=== PATIENT | female | born 1985 | race Caucasian/White ===

== ENCOUNTER 2019-04-03 14:19 | Emergency (ER) | payer SELFPAY ==
[~2019-04-03] VITALS: Ht 157.5 cm; Wt 59.1 kg
[~2019-04-03 14:19] MED LIST: AC500T; CALC-656; LEVO250T7; METR500T PO; NITR100C3; NITR100C3 PO; OXYC-12 BC; PREN1TAB39 PO
[2019-04-03 15:16] LABS: WHITE BLOOD COUNT 7.7 10^3/uL (4.3-11.0)
[2019-04-03 15:17] LABS: BASOPHILS % (AUTO) 1 % (0-10); EOSINOPHILS % (AUTO) 1 % (0-10); HEMATOCRIT 44 % (35-52); HEMOGLOBIN 14.8 G/DL (11.5-16.0); LYMPHOCYTES # (AUTO) 1.9 X 10^3 (1.0-4.0); LYMPHOCYTES % (AUTO) 24 % (12-44); MEAN CORPUSCULAR HEMOGLOBIN 31 PG (25-34); MEAN CORPUSCULAR HGB CONC 34 G/DL (32-36); MEAN CORPUSCULAR VOLUME 94 FL (80-99); MEAN PLATELET VOLUME 10.9 FL (7.4-10.4); MONOCYTES # (AUTO) 0.3 X 10^3 (0.0-1.0); MONOCYTES % (AUTO) 4 % (0-12); NEUTROPHILS # (AUTO) 5.4 X 10^3 (1.8-7.8); NEUTROPHILS % (AUTO) 70 % (42-75); PLATELET COUNT 184 10^3/uL (130-400); RED CELL DISTRIBUTION WIDTH 12.1 % (10.0-14.5)
[2019-04-03 15:40] LABS: BUN/CREATININE RATIO 7; CALCIUM 8.9 MG/DL (8.5-10.1); CARBON DIOXIDE 23 MMOL/L (21-32); CHLORIDE 107 MMOL/L (98-107); CREATININE SERUM 0.88 MG/DL (0.60-1.30); GFR ESTIMATED > 60; GLUCOSE 98 MG/DL (70-105); POTASSIUM 3.9 MMOL/L (3.6-5.0); SODIUM 139 MMOL/L (135-145)
--- NOTE | 2019-04-03 15:54 | ED Abdominal Pain ---
General Chief Complaint: Rect Problems Stated Complaint: BLACK STOOL; ABD PAIN Nursing Triage Note: Patient reports bright red blood per rectum for 1 week, states today her stool became dark and black in color. She reports 2-3 dark loose stools today. She also reports generalized abdominal pain. Sepsis Screen: No Definite Risk Source of Information: Patient History of Present Illness Date Seen by Provider: Apr 03, 2019 Time Seen by Provider: 15:00 Initial Comments Patient is a 33-year-old female with history of irritable bowel syndrome who presents with loose stools with intermittent bright red rectal bleeding and blood on stools the past week. Patient reports mild generalized migratory abdominal cramping described as dull and cramping. Denies rectal pain or constipation. No nausea vomiting, fevers chills, back pain or sweats. Patient states she had episode of dark green stool last evening which she collected. No other acute symptoms or complaints. No recent antibiotics. Patient has an IUD in place and has irregular menstrual periods. Timing/Duration: 1-3 Hours Severity/Quality: Mild Location: Generalized Abdomen Activities at Onset: None Allergies and Home Medications Allergies Coded Allergies: Aspirin (Unverified Allergy, Mild, 04/27/09) Cefaclor (Unverified Allergy, Mild, 04/27/09) Amoxicillin (Verified Allergy, Unknown, 10/30/09) Uncoded Allergies: [id number] (SULFA (SULFONAMIDE ANTIBIOTICS)) (Allergy, Mild, 06/16/09) Patient Home Medication List Home Medication List Reviewed: Yes Review of Systems Review of Systems Constitutional: dizziness EENTM: No Symptoms Reported Respiratory: No Symptoms Reported Cardiovascular: No Symptoms Reported Gastrointestinal: See HPI Musculoskeletal: no symptoms reported Past Ezezyip-Krixns-Jgzpwe Hx Past Med/Social Hx: Reviewed Nursing Past Med/Soc Hx Patient Social History Alcohol Use: Denies Use Recreational Drug Use: No Smoking Status: Current Everyday Smoker Type Used: Cigarettes 2nd Hand Smoke Exposure: No Recent Foreign Travel: No Contact w/Someone Who Travel: No Recent Infectious Disease Expo: No Recent Hopitalizations: No Physical Abuse: No Sexual Abuse: No Mistreated: No Fear: No Seasonal Allergies Seasonal Allergies: No Past Medical History Surgeries: Yes Gallbladder Respiratory: No Cardiac: No Neurological: Yes Reproductive Disorders: No Genitourinary: Yes Bladder Infection Gastrointestinal: Yes Irritable Bowel Musculoskeletal: No Endocrine: No HEENT: No Cancer: No Psychosocial: No Integumentary: No Blood Disorders: No Physical Exam Vital Signs Vital Signs - First Documented 04/03/19 14:49 Temp 37.3 Pulse 87 Resp 18 B/P (MAP) 123/74 (90) Pulse Ox 95 O2 Delivery Room Air Capillary Refill : Less Than 3 Seconds Height/Weight/BMI Height: 5'3.00" Weight: 162lbs. oz. 73.874900mb; 23.00 BMI Method:Stated General Appearance: WD/WN, no apparent distress HEENT: PERRL/EOMI, TMs normal Neck: non-tender, full range of motion, supple Respiratory: lungs clear Gastrointestinal: soft, other (no distention, normal bowel sounds, no tenderness.) Extremities: non-tender Focused Exam Sepsis Stage: Ruled Out Progress/Results/Core Measures Results/Orders Lab Results Laboratory Tests Test 04/03/19 15:00 Range/Units White Blood Count 7.7 4.3-11.0 10^3/uL Red Blood Count 4.71 4.35-5.85 10^6/uL Hemoglobin 14.8 11.5-16.0 G/DL Hematocrit 44 35-52 % Mean Corpuscular Volume 94 80-99 FL Mean Corpuscular Hemoglobin 31 25-34 PG Mean Corpuscular Hemoglobin Concent 34 32-36 G/DL Red Cell Distribution Width 12.1 10.0-14.5 % Platelet Count 184 130-400 10^3/uL Mean Platelet Volume 10.9 H 7.4-10.4 FL Neutrophils (%) (Auto) 70 42-75 % Lymphocytes (%) (Auto) 24 12-44 % Monocytes (%) (Auto) 4 0-12 % Eosinophils (%) (Auto) 1 0-10 % Basophils (%) (Auto) 1 0-10 % Neutrophils # (Auto) 5.4 1.8-7.8 X 10^3 Lymphocytes # (Auto) 1.9 1.0-4.0 X 10^3 Monocytes # (Auto) 0.3 0.0-1.0 X 10^3 Eosinophils # (Auto) 0.0 0.0-0.3 10^3/uL Basophils # (Auto) 0.0 0.0-0.1 10^3/uL Sodium Level 139 135-145 MMOL/L Potassium Level 3.9 3.6-5.0 MMOL/L Chloride Level 107 98-107 MMOL/L Carbon Dioxide Level 23 21-32 MMOL/L Anion Gap 9 5-14 MMOL/L Blood Urea Nitrogen 6 L 7-18 MG/DL Creatinine 0.88 0.60-1.30 MG/DL Estimat Glomerular Filtration Rate > 60 BUN/Creatinine Ratio 7 Glucose Level 98 70-105 MG/DL Calcium Level 8.9 8.5-10.1 MG/DL My Orders Orders - DANNIELLE CHICAS DO Cbc With Automated Diff (04/03/19 14:40) Basic Metabolic Panel (04/03/19 14:40) Occult Blood Stool (04/03/19 14:40) Vital Signs/I&O 04/03/19 14:49 Temp 37.3 Pulse 87 Resp 18 B/P (MAP) 123/74 (90) Pulse Ox 95 O2 Delivery Room Air Blood Pressure Mean: 90 Departure Communication (Admissions) Symptoms consistent with irritable bowel syndrome with probable hemorrhoidal bleeding. Heme-negative in the ED. Basic labs obtained. Recommend PCP follow-up for further evaluation Impression Primary Impression: Loose stools Additional Impressions: Abdominal cramping Rectal bleeding Disposition: HOME, SELF-CARE Condition: Stable Departure-Patient Inst. Referrals: ROVERTO GARCIA MD (PCP/Family) Primary Care Physician Patient Instructions: Bloody Stools, Adult (DC) Add. Discharge Instructions: Please take Metamucil daily and follow up with PCP for reevaluation. All discharge instructions reviewed with patient and/or family. Voiced understanding. DANNIELLE CHICAS DO Apr 03, 2019 15:54
[2019-04-03 16:08] VITALS: BP 118/67
== END 2019-04-03 16:10 | disposition home or self-care (01) ==
LOC: EDUNIT# 14:19 → ER FS 14:21
DX: R19.7 Diarrhea, unspecified (principal); K62.5 Hemorrhage of anus and rectum; K58.9 Irritable bowel syndrome, unspecified; F17.210 Nicotine dependence, cigarettes, uncomplicated; Z88.6 Allergy status to analgesic agent; Z88.1 Allergy status to other antibiotic agents; Z88.0 Allergy status to penicillin; Z88.2 Allergy status to sulfonamides
CPT/HCPCS: 80048

== ENCOUNTER → 2019-07-26 | Outpatient (CLI) | payer SELFPAY | LOC: LAB FS 14:25 | PROVIDERS: ATTEND Family Medicine | DX: N92.6 Irregular menstruation, unspecified (principal) | CPT/HCPCS: 36415; 84702 ==

== ENCOUNTER 2019-08-11 20:37 | Emergency (ER) | payer SELFPAY ==
[~2019-08-11] VITALS: Ht 162.5 cm; Wt 65.8 kg
[2019-08-11 21:08] LABS: BASOPHILS # (AUTO) 0.1 10^3/uL (0.0-0.1); BASOPHILS % (AUTO) 1 % (0-10); EOSINOPHILS # (AUTO) 0.1 10^3/uL (0.0-0.3); EOSINOPHILS % (AUTO) 1 % (0-10); HEMATOCRIT 44 % (35-52); HEMOGLOBIN 15.1 G/DL (11.5-16.0); LYMPHOCYTES # (AUTO) 2.8 X 10^3 (1.0-4.0); LYMPHOCYTES % (AUTO) 37 % (12-44); MEAN CORPUSCULAR HEMOGLOBIN 32 PG (25-34); MEAN CORPUSCULAR HGB CONC 34 G/DL (32-36); MEAN CORPUSCULAR VOLUME 93 FL (80-99); MEAN PLATELET VOLUME 10.2 FL (7.4-10.4); MONOCYTES # (AUTO) 0.4 X 10^3 (0.0-1.0); MONOCYTES % (AUTO) 5 % (0-12); NEUTROPHILS # (AUTO) 4.1 X 10^3 (1.8-7.8); NEUTROPHILS % (AUTO) 55 % (42-75); PLATELET COUNT 216 10^3/uL (130-400); RED CELL DISTRIBUTION WIDTH 12.2 % (10.0-14.5); WHITE BLOOD COUNT 7.4 10^3/uL (4.3-11.0)
--- NOTE | 2019-08-11 21:10 | ED General ---
General Chief Complaint: Chest Pain Stated Complaint: CHEST PAIN Source of Information: Patient History of Present Illness Date Seen by Provider: Aug 11, 2019 Time Seen by Provider: 20:40 Initial Comments 33 yo F presents to the ED with complaints of pain in chest that has been getting worse over the last week. She feels pain and popping in the middle of he r chest and it radiates to both side of her chest. She denies a cough. She feels the pain is worse at night when she tries to lay down. She had pain in her right arm doing into her chest last night. She is a smoker. She feels that she has sleep apnea and that she has her breathing and her heart stopping at night. She felt it was worsening so she came to the ED tonight. She does get light headed at times as well. She feels it is worse with taking deep breaths and with laying down. She has been having irregular bleeding with her Mirena as well. She has not been in to see the doctor recently because she states she does not have insurance. She does not take any medicine on a scheduled basis. Allergies and Home Medications Allergies Coded Allergies: Aspirin (Unverified Allergy, Mild, 04/27/09) Cefaclor (Unverified Allergy, Mild, 04/27/09) Amoxicillin (Verified Allergy, Unknown, 10/30/09) Uncoded Allergies: [id number] (SULFA (SULFONAMIDE ANTIBIOTICS)) (Allergy, Mild, 06/16/09) Patient Home Medication List Home Medication List Reviewed: Yes Review of Systems Review of Systems Constitutional: No chills; dizziness (and light headed at times); No fever EENTM: no symptoms reported Respiratory: No cough, No stridor, No wheezing Cardiovascular: chest pain (epigastric pains going into her chest) Gastrointestinal: abdominal pain (epigastric); No constipation, No diarrhea; nausea; No vomiting Genitourinary: No dysuria, No frequency; other (irregular vaginal bleeding) Musculoskeletal: no symptoms reported Skin: no symptoms reported Psychiatric/Neurological: No Symptoms Reported Hematologic/Lymphatic: No Symptoms Reported Past Enlrfla-Qccomw-Xrivmw Hx Past Med/Social Hx: Reviewed Nursing Past Med/Soc Hx Patient Social History Type Used: Cigarettes 2nd Hand Smoke Exposure: No Recent Foreign Travel: No Contact w/Someone Who Travel: No Recent Hopitalizations: No Physical Abuse: No (15yrs of age) Sexual Abuse: No (15yrs of age) Mistreated: No Fear: No Seasonal Allergies Seasonal Allergies: No Past Medical History Surgeries: Yes Gallbladder Respiratory: No Currently Using CPAP: No Currently Using BIPAP: No Cardiac: No Neurological: No Reproductive Disorders: No Genitourinary: Yes Bladder Infection Gastrointestinal: Yes Gall Bladder Disease, Irritable Bowel Musculoskeletal: No Endocrine: No HEENT: No Cancer: No Psychosocial: No Integumentary: No Blood Disorders: No Physical Exam Vital Signs Vital Signs - First Documented 08/11/19 20:40 Temp 36.9 Pulse 78 Resp 12 B/P (MAP) 126/78 (94) Pulse Ox 99 O2 Delivery Room Air Capillary Refill : Less Than 3 Seconds Height, Weight, BMI Height: 5'3.00" Weight: 162lbs. oz. 73.902147ov; 23.00 BMI Method:Stated General Appearance: No Apparent Distress, WD/WN HEENT: PERRL/EOMI, Pharynx Normal Neck: Full Range of Motion, Non Tender, Supple Respiratory: Chest Non Tender, Lungs Clear, Normal Breath Sounds, No Accessory Muscle Use, No Respiratory Distress Cardiovascular: Regular Rate, Rhythm, Normal Peripheral Pulses Gastrointestinal: Normal Bowel Sounds, No Organomegaly, No Pulsatile Mass, Soft, Tenderness (epigastric) Extremity: Normal Capillary Refill, Non Tender, No Pedal Edema Neurologic/Psychiatric: Alert, Oriented x3, head of store operations II-XII Norm as Tested Skin: Normal Color, Warm/Dry Progress/Results/Core Measures Suspected Sepsis SIRS Temperature: Pulse: Respiratory Rate: Laboratory Tests 08/11/19 21:00: White Blood Count 7.4 Blood Pressure / Mean: Laboratory Tests 08/11/19 21:00: Creatinine 0.95, INR Comment 0.9, Platelet Count 216, Total Bilirubin 0.2 Results/Orders Lab Results Laboratory Tests Test 08/11/19 21:00 Range/Units White Blood Count 7.4 4.3-11.0 10^3/uL Red Blood Count 4.76 4.35-5.85 10^6/uL Hemoglobin 15.1 11.5-16.0 G/DL Hematocrit 44 35-52 % Mean Corpuscular Volume 93 80-99 FL Mean Corpuscular Hemoglobin 32 25-34 PG Mean Corpuscular Hemoglobin Concent 34 32-36 G/DL Red Cell Distribution Width 12.2 10.0-14.5 % Platelet Count 216 130-400 10^3/uL Mean Platelet Volume 10.2 7.4-10.4 FL Neutrophils (%) (Auto) 55 42-75 % Lymphocytes (%) (Auto) 37 12-44 % Monocytes (%) (Auto) 5 0-12 % Eosinophils (%) (Auto) 1 0-10 % Basophils (%) (Auto) 1 0-10 % Neutrophils # (Auto) 4.1 1.8-7.8 X 10^3 Lymphocytes # (Auto) 2.8 1.0-4.0 X 10^3 Monocytes # (Auto) 0.4 0.0-1.0 X 10^3 Eosinophils # (Auto) 0.1 0.0-0.3 10^3/uL Basophils # (Auto) 0.1 0.0-0.1 10^3/uL Prothrombin Time 12.2 12.2-14.7 SEC INR Comment 0.9 0.8-1.4 Activated Partial Thromboplast Time 27 24-35 SEC Sodium Level 138 135-145 MMOL/L Potassium Level 3.9 3.6-5.0 MMOL/L Chloride Level 101 98-107 MMOL/L Carbon Dioxide Level 23 21-32 MMOL/L Anion Gap 14 5-14 MMOL/L Blood Urea Nitrogen 10 7-18 MG/DL Creatinine 0.95 0.60-1.30 MG/DL Estimat Glomerular Filtration Rate > 60 BUN/Creatinine Ratio 11 Glucose Level 96 70-105 MG/DL Calcium Level 9.0 8.5-10.1 MG/DL Corrected Calcium 8.7 8.5-10.1 MG/DL Magnesium Level 2.1 1.6-2.4 MG/DL Total Bilirubin 0.2 0.1-1.0 MG/DL Aspartate Amino Transf (AST/SGOT) 18 5-34 U/L Alanine Aminotransferase (ALT/SGPT) 21 0-55 U/L Alkaline Phosphatase 80 40-136 U/L Troponin I < 0.30 <0.30 NG/ML Pro-B-Type Natriuretic Peptide 46.7 <75.0 PG/ML Total Protein 6.8 6.4-8.2 GM/DL Albumin 4.4 3.2-4.5 GM/DL Lipase 25 8-78 U/L Serum Test, Qualitative NEGATIVE NEGATIVE My Orders Orders - BABS LINDO MD Cbc With Automated Diff (08/11/19 20:52) Magnesium (08/11/19 20:52) Ekg Tracing (08/11/19 20:52) Comprehensive Metabolic Panel (08/11/19 20:52) Protime With Inr (08/11/19 20:52) Partial Thromboplastin Time (08/11/19 20:52) Monitor-Rhythm Ecg Trace Only (08/11/19 20:52) Ed Iv/Invasive Line Start (08/11/19 20:52) Lipase (08/11/19 20:52) Troponin I Fs (08/11/19 20:52) Probnp Fs (08/11/19 20:52) Chest Pa/Lat (2 View) (08/11/19 20:52) Hcg,Qualitative Serum (08/11/19 20:52) Pantoprazole Injection (Protonix Injecti (08/11/19 21:15) Vital Signs/I&O 08/11/19 08/11/19 20:40 20:40 Temp 36.9 Pulse 78 Resp 12 B/P (MAP) 126/78 (94) Pulse Ox 99 O2 Delivery Room Air Room Air Capillary Refill : Less Than 3 Seconds Progress Note #1: Progress Note check basic labs and CXR with ECG. With her having some epigastric symptoms and nausea will try a dose of Protonix for possible gastritis and see what her LFTs and Lipase show. Since she is having irregular bleeding with her Mirena will also check a Qualitative HCG on serum. Progress Note #2: Time: 21:54 Progress Note Labs are all stable without acute significant abnormality. Negative cardiac labs and negative Lipase and LFTs. CXR does not show acute significant abnormality. ECG is normal without acute abnormality. Will review results with patient and see about trying treatment with medicine for GERD/gastritis and having her try to quit smoking. Check back with [facility] clinic for continued symptoms and note about missed work. Since her symptoms are worse when she lays down it certainly could be from reflux causing her symptoms. No acute abnormality showing on her tests here otherwise. She may need more advanced testing with clinic but no indication for admit or transfer to need testing in the hospital setting emergently. ECG Initial ECG Impression Date: Aug 11, 2019 Initial ECG Impression Time: 21:00 Initial ECG Rate: 76 Initial ECG Rhythm: Normal Sinus Initial ECG Comparisson: No Previous ECG Available Comment Normal sinus rhythm with a heart rate of 76 bpm. [place] interval 144 ms. There is no acute ST elevation. Her QT interval is 379 ms and a QTc interval 427 ms. There is no prior tracing available for comparison. Diagnostic Imaging Diagonstic Imaging: Xray Plain Films/CT/US/NM/MRI: chest Comments NAME: ANDREY SANZ [facility] REC#: [id number] PT STATUS: REG ER : 1985 PHYSICIAN: BABS LINDO MD ADMIT DATE: 08/11/19/ER FS Signed Date of Exam:08/11/19 CHEST PA/LAT (2 VIEW) INDICATION: Chest tightness with pain and cough PA and lateral views of the chest are obtained. COMPARISON: No previous study is available for comparison at this time. FINDINGS: Heart size and pulmonary vasculature are within normal limits, and the lungs are clear, bilaterally. IMPRESSION: Unremarkable chest. Dictated by: Dictated on workstation # [id number] Dict: 08/11/192130 Trans: 08/11/192132 [facility] [id number] Interpreted by: YVON SMITH MD Electronically signed by: YVON SMITH MD 08/11/192132 Reviewed: Reviewed by Me Departure Impression Primary Impression: Non-cardiac chest pain Additional Impression: Gastroesophageal reflux disease Qualified Codes: K21.0 - Gastro-esophageal reflux disease with esophagitis Disposition: HOME, SELF-CARE Condition: Stable Departure-Patient Inst. Decision time for Depature: 22:00 Referrals: ROVERTO GARCIA MD (PCP/Family) Primary Care Physician MALA CHAMORRO MD Patient Instructions: Chest Pain That Is Not Caused by the Heart (DC), Acid Reflux (Gastroesophageal Reflux Disease), Adult (DC) Add. Discharge Instructions: Try to quit smoking and follow a low fat diet Take the medicine for acid reflux and see if that helps your symptoms as well. Follow up with clinic for continued symptoms and they may have you do other testing but your tests tonight have all come back looking ok. All discharge instructions reviewed with patient and/or family. Voiced understanding. Scripts Omeprazole (Omeprazole) 20 Mg Tablet. 20 MG PO DAILY for GERD for 30 Days, #30 TAB 0 Refills Prov: BABS LINDO MD 08/11/19 Work/School Note: Work Release Form Date Seen in the Emergency Department: Aug 11, 2019 Return to Work: Aug 12, 2019 Restrictions: No Restrictions BABS LINDO MD Aug 11, 2019 21:10
[2019-08-11] MEDS ORDERED: PANTOPRAZOLE 40 MG (PROTONIX) VIAL IV STA (21:15)
[2019-08-11 21:18] LABS: INR 0.9 (0.8-1.4); PROTHROMBIN TIME PATIENT 12.2 SEC (12.2-14.7)
--- NOTE | 2019-08-11 21:35 | Diagnostic Imaging Report ---
INDICATION: Chest tightness with pain and cough PA and lateral views of the chest are obtained. COMPARISON: No previous study is available for comparison at this time. FINDINGS: Heart size and pulmonary vasculature are within normal limits, and the lungs are clear, bilaterally. IMPRESSION: Unremarkable chest. Dictated by: Dictated on workstation # [id number]
[2019-08-11 21:38] LABS: ALANINE AMINOTRANSFERASE 21 U/L (0-55); ALKALINE PHOSPHATASE 80 U/L (40-136); BILIRUBIN,TOTAL 0.2 MG/DL (0.1-1.0); BUN/CREATININE RATIO 11; CARBON DIOXIDE 23 MMOL/L (21-32); CHLORIDE 101 MMOL/L (98-107); CREATININE SERUM 0.95 MG/DL (0.60-1.30); GFR ESTIMATED > 60; GLUCOSE 96 MG/DL (70-105); MAGNESIUM 2.1 MG/DL (1.6-2.4); POTASSIUM 3.9 MMOL/L (3.6-5.0); SODIUM 138 MMOL/L (135-145); TOTAL PROTEIN 6.8 GM/DL (6.4-8.2)
[2019-08-11 21:39] LABS: ALBUMIN 4.4 GM/DL (3.2-4.5); LIPASE 25 U/L (8-78)
[2019-08-11] MEDS ORDERED: OMEP20TA7 PO (22:03)
[2019-08-11 22:05] VITALS: BP 126/78
== END 2019-08-11 22:07 | disposition home or self-care (01) ==
LOC: EDUNIT# 20:37 → ER FS 20:40
DX: K21.9 Gastro-esophageal reflux disease without esophagitis (principal); Z88.6 Allergy status to analgesic agent; Z88.0 Allergy status to penicillin; Z88.1 Allergy status to other antibiotic agents; Z88.2 Allergy status to sulfonamides
CPT/HCPCS: 36415; 71046; 80053; 83690; 83735; 83880; 84484; 84703; 85025; 85610; 85730; 93005; 93041; 96374

== ENCOUNTER 2019-11-28 01:13 | Emergency (ER) | payer SELFPAY ==
[~2019-11-28] VITALS: Ht 160 cm; Wt 69.0 kg
[~2019-11-28 01:13] MED LIST changes: +OMEP20TA7 PO
--- OUTSIDE RECORDS SUMMARY | 2019-11-28 01:20 | XMS REPORT ---
Author Author Joselyn VELEZ [facility] Address [address] [place] [address] Care Team Providers Care Clinical Data Research Name Role Phone DALLIN VELEZ Unavailable PROBLEMS Unknown Problems ALLERGIES No Information ENCOUNTERS Encounter Location Date Diagnosis [facility] [address] [facility] [id number] [place] [address] Jun, IMMUNIZATIONS No Known Immunizations SOCIAL HISTORY Never Assessed REASON FOR VISIT Dry hacking cough started about 1 month ago- temp up to 99.3. Try taking an OTC allergy med, cool mist humidifier, increase fluid intake. Follow up with [facility] if symptoms worsen or you develop a fever. [facility] VITAL SIGNS Height 63.5 in 2018-06-08 Weight 149.6 lbs 2018-06-08 Temperature 99.3 degrees Fahrenheit 2018-06-08 Heart Rate 80 bpm 2018-06-08 Respiratory Rate 22 2018-06-08 Oximetry 97 % 2018-06-08 BMI 26.08 kg/m2 2018-06-08 Blood pressure systolic 130 mmHg 2018-06-08 Blood pressure diastolic 90 mmHg 2018-06-08 MEDICATIONS Medication Instructions Dosage Frequency Start Date End Date Duration S tatus Tylenol Cold/Flu Severe 5-83-359-325 MG Orally Four times a day 2 tablets as needed 6h Active Cough Syrup 100 MG/5ML Orally every 4 hrs 10 ml as needed 4h Active RESULTS No Results PROCEDURES No Known procedures INSTRUCTIONS MEDICATIONS ADMINISTERED No Known Medications
--- OUTSIDE RECORDS SUMMARY | 2019-11-28 01:20 | XMS REPORT | Continuity of Care Document ---
Author Organization Unknown Address Unknown Phone Unavailable Allergies Active Description Code Type Severity Reaction Onset Reported/Identified Relationship to Patient Clinical Status Yes aspirin [id number] Drug Allergy Mild N/A 04/27/2009 Yes cefaclor [id number] Drug Allergy Mild N/A 04/27/2009 Yes [id number] (SULFA (SULFONAMIDE ANTIBIOTI CS)) [id number] (SULFA (SULFONAMIDE ANTIBIOTICS)) Mild N/A 06/16/2009 Yes amoxicillin [id number] Drug Aller gy Unknown N/A 10/30/2009 Medications There is no data. Problems Date Dx Coded Attending Type Code Diagnosis Diagnosed By 04/03/2019 DANNIELLE CHICAS DO, Ot F17.210 NICOTINE DEPENDENCE, CIGARETTES, UNCOMPL 04/03/2019 DANNIELLE CHICAS DO Ot K58.9 IRRITABLE BOWEL SYNDROME WITHOUT DIARRHE 04/03/2019 DANNIELLE CHICAS DO Ot K62.5 HEMORRHAGE OF ANUS AND RECTUM 04/03/2019 DANNIELLE CHICAS DO Ot R10.84 GENERALIZED ABDOMINAL PAIN 04/03/2019 DANNIELLE CHICAS DO Ot R19.7 DIARRHEA, UNSPECIFIED 04/03/2019 DANNIELLE CHICAS DO Ot Z88.0 ALLERGY STATUS TO PENICILLIN 04/03/2019 DANNIELLE CHICAS DO Ot Z88.1 ALLERGY STATUS TO OTHER ANTIBIOTIC AGENT 04/03/2019 DANNIELLE CHICAS DO Ot Z88.2 ALLERGY STATUS TO SULFONAMIDES STATUS 04/03/2019 DANNIELLE CHICAS DO Ot Z88.6 ALLERGY STATUS TO ANALGESIC AGENT STATUS 04/05/2019 DANNIELLE CHICAS DO Ot F17.210 NICOTINE DEPENDENCE, CIGARETTES, UNCOMPL 04/05/2019 DANNIELLE CHICAS DO Ot K58.9 IRRITABLE BOWEL SYNDROME WITHOUT DIARRHE 04/05/2019 DANNIELLE CHICAS DO Ot K62.5 HEMORRHAGE OF ANUS AND RECTUM 04/05/2019 DANNIELLE CHICAS DO Ot R10.84 GENERALIZED ABDOMINAL PAIN 04/05/2019 DANNIELLE CHICAS DO Ot R19.7 DIARRHEA, UNSPECIFIED 04/05/2019 DANNIELLE CHICAS DO Ot Z88.0 ALLERGY STATUS TO PENICILLIN 04/05/2019 DANNIELLE CHICAS DO Ot Z88.1 ALLERGY STATUS TO OTHER ANTIBIOTIC AGENT 04/05/2019 DANNIELLE CHICAS DO Ot Z88.2 ALLERGY STATUS TO SULFONAMIDES STATUS 04/05/2019 DANNIELLE CHICAS DO Ot Z88.6 ALLERGY STATUS TO ANALGESIC AGENT STATUS 07/27/2019 ROVERTO GARCIA MD Ot N92 .6 IRREGULAR MENSTRUATION, UNSPECIFIED 08/11/2019 ROVERTO GARCIA MD Ot N92 .6 IRREGULAR MENSTRUATION, UNSPECIFIED 08/11/2019 BABS LINDO MD Ot K21.9 GASTRO-ESOPHAGEAL REFLUX DISEASE WITHOUT 08/11/2019 BABS LINDO MD Ot R07.8 9 OTHER CHEST PAIN 08/11/2019 BABS LINDO MD Ot Z88.0 ALLERGY STATUS TO PENICILLIN 08/11/2019 BABS LINDO MD Ot Z88.1 ALLERGY STATUS TO OTHER ANTIBIOTIC AGENT 08/11/2019 BABS LINDO MD Ot Z88.2 ALLERGY STATUS TO SULFONAMIDES STATUS 08/11/2019 BABS LINDO MD Ot Z88.6 ALLERGY STATUS TO ANALGESIC AGENT STATUS 08/17/2019 BABS LINDO MD Ot K21.9 GASTRO-ESOPHAGEAL REFLUX DISEASE WITHOUT 08/17/2019 BABS LINDO MD Ot R07.8 9 OTHER CHEST PAIN 08/17/2019 BABS LINDO MD Ot Z88.0 ALLERGY STATUS TO PENICILLIN 08/17/2019 BABS LINDO MD Ot Z88.1 ALLERGY STATUS TO OTHER ANTIBIOTIC AGENT 08/17/2019 BABS LINDO MD Ot Z88.2 ALLERGY STATUS TO SULFONAMIDES STATUS 08/17/2019 BABS LINDO MD Ot Z88.6 ALLERGY STATUS TO ANALGESIC AGENT STATUS Procedures There is no data. Results Test Result Range Complete blood count (CBC) with automate d white blood cell (WBC) differential - 04/03/19 15:00 Blood leukocytes automated count (number/volume) 7.7 10*3/uL 4.3-11.0 Blood erythrocytes automated count (number/volume) 4.71 10*6/uL 4.35-5.85 Venous blood hemoglobin measurement (mass/volume) 14.8 g/dL 11.5-16.0 Blood hematocrit (volume fraction) 44 % 35-52 Automated erythrocyte mean corpuscular volume 94 [ foz_us] 80-99 Automated erythrocyte mean corpuscular h emoglobin (mass per erythrocyte) 31 pg 25-34 Automated erythrocyte mean corpuscular h emoglobin concentration measurement (mass/volume) 34 g/dL 32-36 Automated erythrocyte distribution width ratio 12. 1 % 10.0- 14.5 Automated blood platelet count (count/volume) 184 10*3/uL 130-400 Automated blood platelet mean volume measurement 10.9 [foz_us] 7.4-10.4 Automated blood neutrophils/100 leukocytes 70 % 42-75 Automated blood lymphocytes/100 leukocytes 24 % 12-44 Blood monocytes/100 leukocytes 4 % 0-12 Automated blood eosinophils/100 leukocytes 1 % 0-10 Automated blood basophils/100 leukocytes 1 % 0-10 Blood neutrophils automated count (number/volume) 5.4 10*3 1.8-7.8 Blood lymphocytes automated count (number/volume) 1.9 10*3 1.0-4.0 Blood monocytes automated count (number/volume) 0. 3 10*3 0.0-1.0 Automated eosinophil count 0.0 10*3/uL 0 .0-0.3 Automated blood basophil count (count/volume) 0.0 10*3/uL 0.0-0.1 Whole blood basic metabolic panel - 1007/22 15:00 Serum or plasma sodium measurement (moles/volume) 139 mmol/L 135-145 Serum or plasma potassium measurement (moles/volume) 3.9 mmol/L 3.6-5.0 Serum or plasma chloride measurement (moles/volume) 107 mmol/L 98-107 Carbon dioxide 23 mmol/L 21-32 Serum or plasma anion gap determination (moles/volume) 9 mmol/L 5-14 Serum or plasma urea nitrogen measurement (mass/volume ) 6 mg/dL 7-18 Serum or plasma creatinine measurement (mass/volume) 0.88 mg/dL 0.60-1.30 Serum or plasma urea nitrogen/creatinine mass ratio 7 NRG Serum or plasma creatinine measurement w ith calculation of estimated glomerular filtration rate > NRG Serum or plasma glucose measurement (mass/volume) 98 mg/dL 70-105 Serum or plasma calcium measurement (mass/volume) 8.9 mg/dL 8.5-10.1 Complete blood count (CBC) with automate d white blood cell (WBC) differential - 08/11/19 21:00 Blood leukocytes automated count (number/volume) 7.4 10*3/uL 4.3-11.0 Blood erythrocytes automated count (number/volume) 4.76 10*6/uL 4.35-5.85 Venous blood hemoglobin measurement (mass/volume) 15.1 g/dL 11.5-16.0 Blood hematocrit (volume fraction) 44 % 35-52 Automated erythrocyte mean corpuscular volume 93 [ foz_us] 80-99 Automated erythrocyte mean corpuscular h emoglobin (mass per erythrocyte) 32 pg 25-34 Automated erythrocyte mean corpuscular h emoglobin concentration measurement (mass/volume) 34 g/dL 32-36 Automated erythrocyte distribution width ratio 12. 2 % 10.0- 14.5 Automated blood platelet count (count/volume) 216 10*3/uL 130-400 Automated blood platelet mean volume measurement 10.2 [foz_us] 7.4-10.4 Automated blood neutrophils/100 leukocytes 55 % 42-75 Automated blood lymphocytes/100 leukocytes 37 % 12-44 Blood monocytes/100 leukocytes 5 % 0-12 Automated blood eosinophils/100 leukocytes 1 % 0-10 Automated blood basophils/100 leukocytes 1 % 0-10 Blood neutrophils automated count (number/volume) 4.1 10*3 1.8-7.8 Blood lymphocytes automated count (number/volume) 2.8 10*3 1.0-4.0 Blood monocytes automated count (number/volume) 0. 4 10*3 0.0-1.0 Automated eosinophil count 0.1 10*3/uL 0 .0-0.3 Automated blood basophil count (count/volume) 0.1 10*3/uL 0.0-0.1 Serum or plasma choriogonadotropin (preg vishnu test) detection - 08/11/19 21:00 Serum or plasma choriogonadotropin ( test) de tection NEGATIVE NEGATIVE PT panel in platelet poor plasma by coag ulation assay - 08/11/19 21:00 Prothrombin time (PT) in platelet poor plasma by coagu lation assay 12.2 s 12.2-14.7 INR in platelet poor plasma or blood by coagulation as say 0.9 0.8-1.4 Activated partial thromboplastin time (a PTT) in platelet poor plasma bycoagulation assay - 08/11/19 21:00 Activated partial thromboplastin time (a PTT) in platelet poor plasma bycoagulation assay 27 s 24-35 TROPONIN I FS - 08/11/19 21:00 TROPONIN I FS < 0.30 <0.30 Comprehensive metabolic panel - 08/11/19 21:00 Serum or plasma sodium measurement (moles/volume) 138 mmol/L 135-145 Serum or plasma potassium measurement (moles/volume) 3.9 mmol/L 3.6-5.0 Serum or plasma chloride measurement (moles/volume) 101 mmol/L 98-107 Carbon dioxide 23 mmol/L 21-32 Serum or plasma anion gap determination (moles/volume) 14 mmol/L 5-14 Serum or plasma urea nitrogen measurement (mass/volume ) 10 mg/dL 7-18 Serum or plasma creatinine measurement (mass/volume) 0.95 mg/dL 0.60-1.30 Serum or plasma urea nitrogen/creatinine mass ratio 11 NRG Serum or plasma creatinine measurement w ith calculation of estimated glomerular filtration rate > NRG Serum or plasma glucose measurement (mass/volume) 96 mg/dL 70-105 Serum or plasma calcium measurement (mass/volume) 9.0 mg/dL 8.5-10.1 Serum or plasma total bilirubin measurement (mass/volu me) 0.2 mg/dL 0.1-1.0 Serum or plasma alkaline phosphatase dusty surement (enzymatic activity/volume) 80 U/L 40-136 Serum or plasma aspartate aminotransfera se measurement (enzymatic activity/volume) 18 U/L 5-34 Serum or plasma alanine aminotransferase measurement (enzymatic activity/volume) 21 U/L 0-55 Serum or plasma protein measurement (mass/volume) 6.8 g/dL 6.4-8.2 Serum or plasma albumin measurement (mass/volume) 4.4 g/dL 3.2-4.5 CALCIUM CORRECTED 8.7 mg/dL 8.5-10.1 Magnesium - 08/11/19 21:00 Magnesium 2.1 mg/dL 1.6-2.4 Lipase - 08/11/19 21:00 Lipase 25 U/L 8-78 PROBNP FS - 08/11/19 21:00 PROBNP FS 46.7 pg/mL <75.0 Encounters ACCT No. Visit Date/Time Discharge Status Pt. Type Provider Facility Loc./Unit Complaint [id number] 08/11/2019 20:40:00 020 22:07:00 DIS Emergency GUICHO THRASHER, BABS [place] [facility] ER FS CHEST PAIN [id number] 07/26/2019 14:25:00 020 23:59:59 CLS Outpatient RADHA THRASHER, ROVERTO Prado [facility] LAB FS N92.6 [id number] 04/03/2019 14:21:00 019 16:10:00 DIS Emergency DANNIELLE CHICAS DO [facility] ER FS BLACK STOOL; ABD PAIN [id number] 12/28/2013 16:55:00 014 20:26:00 DIS Outpatient [id number] 11/28/2019 01:17:[address] Emergency AUSTIN THRASHER, ROBBY E[place] [facility] ER FS VOMITING
--- NOTE | 2019-11-28 01:28 | ED Abdominal Pain ---
General Chief Complaint: Abdominal/GI Problems Stated Complaint: VOMITING Source of Information: Patient Exam Limitations: No Limitations History of Present Illness Date Seen by Provider: November 28, 2019 Time Seen by Provider: 01:20 Initial Comments This patient is a 34-year-old female that presents to the emergency department complaining of epigastric pain. Patient states she has a long history of reflux disease as this started happening after she ate some [employer] earlier tonight. Patient states that she's dry heaves a couple times with very little vomit. Just a lot of epigastric discomfort. We did discuss at length with patient about options. She is agreeable to a GI cocktail stases it these have helped in the past. Timing/Duration: 1-3 Hours Severity/Quality: Moderate, Burning Location: Epigastric Radiation: No Radiation Modifying Factors: Improves With Antacids Associated Symptoms: Heartburn Allergies and Home Medications Allergies Coded Allergies: Aspirin (Unverified Allergy, Mild, 04/27/09) Cefaclor (Unverified Allergy, Mild, 04/27/09) Amoxicillin (Verified Allergy, Unknown, 10/30/09) Uncoded Allergies: [id number] (SULFA (SULFONAMIDE ANTIBIOTICS)) (Allergy, Mild, 06/16/09) Home Medications Omeprazole 20 Mg Tablet.dr, 20 MG PO DAILY Prescribed by: BABS LINDO on 08/11/192202 Patient Home Medication List Home Medication List Reviewed: Yes Review of Systems Review of Systems Constitutional: see HPI EENTM: No No Symptoms Reported, No See HPI, No Blurred Vision, No Double Vision, No Eye Pain, No Eye Tearing, No Ear Drainage, No Ear Pain, No Mouth Pain, No Mouth Swelling, No Nose Congestion, No Nose Pain, No Throat Pain, No Throat Swelling, No Other Respiratory: Denies No Symptoms Reported, Denies See HPI, Denies Cough, Denies Orthopnea, Denies Shortness of Air, Denies SOA With Exertion, Denies SOA at Rest, Denies Stridor, Denies Wheezing, Denies Other Cardiovascular: Denies No Symptoms Reported, Denies See HPI, Denies Chest Pain, Denies Edema, Denies Irregular Heart Rate, Denies Lightheadedness, Denies Palpitations, Denies Syncope, Denies Other Gastrointestinal: Denies No Symptoms Reported, Denies See HPI, Denies Abdomen Distended; Abdominal Pain; Denies Blood Streaked Stools, Denies Constipated, Denies Diarrhea, Denies Difficulty Swallowing; Nausea; Denies Poor Appetite, Denies Poor Fluid Intake, Denies Rectal Bleeding, Denies Vomiting, Denies Other Genitourinary: Denies No Symptoms Reported, Denies See HPI, Denies Burning, Denies Discharge, Denies Drainage, Denies Frequency, Denies Flank Pain, Denies Hematuria, Denies Incontinence, Denies Pain, Denies Urgency, Denies Other Musculoskeletal: No no symptoms reported, No see HPI, No back pain, No gout, No joint pain, No joint swelling, No muscle pain, No muscle stiffness, No muscle cramps, No muscle twitching, No muscle weakness, No neck pain, No other Skin: No no symptoms reported, No see HPI, No change in color, No change in hair/nails, No dryness, No hx of skin cancer, No lesions, No lumps, No pruritus, No rash, No other All Other Systems Reviewed Negative Unless Noted: Yes Past Hbxjsbv-Zsseeg-Flpvnv Hx Patient Social History Type Used: Cigarettes 2nd Hand Smoke Exposure: No Recent Foreign Travel: No Contact w/Someone Who Travel: No Recent Hopitalizations: No Seasonal Allergies Seasonal Allergies: No Past Medical History Surgeries: Yes Gallbladder Respiratory: No Currently Using CPAP: No Currently Using BIPAP: No Cardiac: No Neurological: No Reproductive Disorders: No Genitourinary: Yes Bladder Infection Gastrointestinal: Yes Gall Bladder Disease, Irritable Bowel Musculoskeletal: No Endocrine: No HEENT: No Cancer: No Psychosocial: No Integumentary: No Blood Disorders: No Physical Exam Vital Signs Vital Signs - First Documented 11/28/19 01:18 Temp 36.0 Pulse 84 Resp 18 B/P (MAP) 140/74 (96) Pulse Ox 100 O2 Delivery Room Air Capillary Refill : Height/Weight/BMI Height: 5'3.00" Weight: 162lbs. oz. 73.708305ny; 24.00 BMI Method:Stated General Appearance: WD/WN, no apparent distress HEENT: PERRL/EOMI, normal ENT inspection, TMs normal, pharynx normal Neck: non-tender, full range of motion, supple, normal inspection Respiratory: chest non-tender, lungs clear, normal breath sounds, no respiratory distress, no accessory muscle use Cardiovascular: normal peripheral pulses, regular rate, rhythm, no edema, no gallop, no JVD, no murmur Gastrointestinal: normal bowel sounds, non tender, soft, no organomegaly, no pulsatile mass Skin: normal color, warm/dry Progress/Results/Core Measures Results/Orders My Orders Orders - ROBBY AVILA MD Lidocaine 2% Viscous 15 Ml (Xylocaine Vi (11/28/19 01:30) Antacid Suspension (Mylanta Suspension (11/28/19 01:30) Medications Given in ED Current Medications Medications Dose Ordered Sig/Tony Route Start Time Stop Time Status Last Admin Dose Admin Al Hydrox/Mg Hydrox/Simethicone 30 ml ONCE ONCE PO 11/28/19 01:30 11/28/19 01:31 DC 11/28/19 01:31 30 ML Lidocaine HCl 15 ml ONCE ONCE PO 11/28/19 01:30 11/28/19 01:31 DC 11/28/19 01:31 15 ML Vital Signs/I&O 11/28/19 01:18 Temp 36.0 Pulse 84 Resp 18 B/P (MAP) 140/74 (96) Pulse Ox 100 O2 Delivery Room Air Progress Progress Note : Time: 01:45 Progress Note Patient received a GI cocktail. Patient still states he feels loss. Patient be given a Zofran prior to discharge. Patient was offered full medical screening exam including labs and IV fluids. And further evaluation. Patient has declined patient wishes to be discharged home patient was advised to come back to the emerge department symptoms failed to improve or worsen or follow-up with her primary care physician. Patient states understanding she will be discharged home per her request. Departure Impression Primary Impression: Epigastric pain Additional Impression: Nausea Disposition: 01 HOME, SELF-CARE Condition: Stable Departure-Patient Inst. Referrals: ROVERTO GARCIA MD (PCP/Family) Primary Care Physician Patient Instructions: Dyspepsia (DC), Nausea and Vomiting, Adult (DC) Add. Discharge Instructions: Encourage by mouth fluids. Advance diet as tolerated. Zofran as needed for nausea. Follow-up with primary care physician in 2-3 days. All discharge instructions reviewed with patient and/or family. Voiced understanding. Scripts Ondansetron (Ondansetron Odt) 4 Mg Tab.rapdis 4 MG PO BID for 7 Days, #10 TAB 0 Refills Prov: ROBBY AVILA MD 11/28/19 ROBBY AVILA MD November 28, 2019 01:28
[2019-11-28] MEDS ORDERED: LIDOCAINE 2% VISCOUS 15 ML UDC PO ONE (01:30)
[2019-11-28] MEDS ORDERED: ANTACID SUSP 30 ML UDC (MYLANTA) PO ONE (01:30)
[2019-11-28] MEDS ORDERED: ONDANSETRON 4 MG (ZOFRAN) ORAL DISSOLVE TAB PO STA (01:45)
[2019-11-28] MEDS ORDERED: ONDA4TAB11 PO (01:47)
[2019-11-28 01:51] VITALS: BP 140/74
== END 2019-11-28 01:51 | disposition home or self-care (01) ==
LOC: EDUNIT# 01:13 → ER FS 01:17
DX: R10.13 Epigastric pain (principal); R11.2 Nausea with vomiting, unspecified; K21.9 Gastro-esophageal reflux disease without esophagitis; Z88.6 Allergy status to analgesic agent; Z88.1 Allergy status to other antibiotic agents; Z88.2 Allergy status to sulfonamides
CPT/HCPCS: 99283

== ENCOUNTER → 2019-12-06 | Outpatient (CLI) | payer SELFPAY ==
[~2019-12-06] MED LIST changes: +ONDA4TAB11 PO
== END ==
LOC: LABNPT 15:12
PROVIDERS: ATTEND Family Medicine
DX: R30.0 Dysuria (principal)
CPT/HCPCS: 87077; 87088; 87186

== ENCOUNTER 2020-05-01 08:14 | Emergency (ER) | payer SELFPAY ==
[~2020-05-01] VITALS: Ht 162.5 cm; Wt 72.3 kg
[2020-05-01 08:20] VITALS: BP 108/70
--- NOTE | 2020-05-01 08:30 | ED General ---
General Stated Complaint: DIZZINESS, BLURRED VISION, STOMACH PAIN Source of Information: Patient History of Present Illness Date Seen by Provider: May 01, 2020 Time Seen by Provider: 08:29 Initial Comments 34-year-old female presents with complaint of onset of feeling ill while at work today. Patient states she had a slight headache, some dizziness and some intermittent blurred vision as well as nausea without vomiting and migratory stomach cramping without diarrhea. States her bowels are moving normal, she has been eating normally. Denies fever or chills, chest pain cough or shortness of air. Allergies and Home Medications Allergies Coded Allergies: aspirin (Unverified Allergy, Mild, 04/27/09) cefaclor (Unverified Allergy, Mild, 04/27/09) amoxicillin (Verified Allergy, Unknown, 10/30/09) Uncoded Allergies: [id number] (SULFA (SULFONAMIDE ANTIBIOTICS)) (Allergy, Mild, 06/16/09) Home Medications No Active Prescriptions or Reported Meds Patient Home Medication List Home Medication List Reviewed: Yes Review of Systems Review of Systems Constitutional: No chills; dizziness; No fever; malaise; No weakness EENTM: see HPI, blurred vision, nose congestion; No no symptoms reported, No ear discharge, No hearing loss, No ear pain, No double vision, No eye pain, No tearing, No vision loss, No dental problems, No hoarseness, No mouth pain, No mouth swelling, No epistaxis, No nose pain, No throat pain, No throat swelling, No other Respiratory: No cough, No short of breath Cardiovascular: No chest pain, No edema, No palpitations, No syncope Gastrointestinal: see HPI, abdominal pain; No constipation, No loss of appetite; nausea; No vomiting Musculoskeletal: No back pain, No joint pain Skin: No change in color, No rash Psychiatric/Neurological: Headache; Denies Numbness, Denies Paresthesia, Denies Seizure Past Hnejgyn-Arloan-Pbknih Hx Past Med/Social Hx: Reviewed Nursing Past Med/Soc Hx Patient Social History Type Used: Cigarettes 2nd Hand Smoke Exposure: No Recent Hopitalizations: No Seasonal Allergies Seasonal Allergies: No Past Medical History Surgeries: Yes Gallbladder Respiratory: No Currently Using CPAP: No Currently Using BIPAP: No Cardiac: No Neurological: No Reproductive Disorders: No Genitourinary: Yes Bladder Infection Gastrointestinal: Yes Gall Bladder Disease, Irritable Bowel Musculoskeletal: No Endocrine: No HEENT: No Cancer: No Psychosocial: No Integumentary: No Blood Disorders: No Physical Exam Vital Signs Vital Signs - First Documented 05/01/20 08:20 Temp 35.5 Pulse 77 Resp 20 B/P (MAP) 108/70 (83) Pulse Ox 99 O2 Delivery Room Air Capillary Refill : Height, Weight, BMI Height: 5'3.00" Weight: 162lbs. oz. 73.116042ys; 26.00 BMI Method:Stated General Appearance: No Apparent Distress, WD/WN HEENT: PERRL/EOMI, Normal ENT Inspection Respiratory: Chest Non Tender, Lungs Clear Cardiovascular: Regular Rate, Rhythm, No Edema Gastrointestinal: Normal Bowel Sounds, Non Tender, Soft Back: Normal Inspection, No CVA Tenderness Extremity: Normal Capillary Refill, Normal Inspection, Non Tender Neurologic/Psychiatric: Alert, Oriented x3, No Motor/Sensory Deficits Skin: Normal Color, Warm/Dry Progress/Results/Core Measures Suspected Sepsis SIRS Temperature: Pulse: Respiratory Rate: Blood Pressure / Mean: Results/Orders Lab Results Laboratory Tests Test 05/01/20 08:35 Range/Units My Orders Orders - MANPREETVENSTINEKERRY DO Urinalysis (05/01/20 08:28) Hcg,Qualitative Urine (05/01/20 08:28) Vital Signs/I&O 05/01/20 08:20 Temp 35.5 Pulse 77 Resp 20 B/P (MAP) 108/70 (83) Pulse Ox 99 O2 Delivery Room Air Capillary Refill : Departure Impression Primary Impression: Dizziness Disposition: 01 HOME, SELF-CARE Condition: Stable Departure-Patient Inst. Decision time for Depature: 08:52 Referrals: ROVERTO GARCIA MD (PCP/Family) Primary Care Physician Patient Instructions: Dizziness, Nonvertigo, (DC) Add. Discharge Instructions: Follow up with Dr Garcia in 1 week if not improving, sooner if worse. Scripts Meclizine HCl (Meclizine HCl) 25 Mg Tablet 25 MG PO Q8H for Dizziness, #20 TAB Prov: ROVENSTINEFANTASMAKERRY L DO 05/01/20 Ibuprofen (Ibuprofen) 800 Mg Tablet 800 MG PO Q8H PRN for PAIN, #30 TAB 0 Refills Prov: MANPREETVENSTINEFANTASMAKERRY L DO 10/29/20 Work/School Note: Work Release Form Date Seen in the Emergency Department: May 01, 2020 Return to Work: May 03, 2020 Restrictions: No Restrictions KERRY FAUSTIN DO May 01, 2020 08:30
[2020-05-01] MEDS ORDERED: IBUP-1780 PO (08:53)
[2020-05-01] MEDS ORDERED: MECL-149 PO (08:53)
[2020-05-01 08:58] LABS: CLARITY,URINE CLEAR; COLOR,URINE YELLOW; PH,URINE 5.5 (5-9)
[2020-05-01 08:59] LABS: BACTERIA,URINE FEW /HPF; BILIRUBIN,URINE NEGATIVE (NEGATIVE); GLUCOSE, URINE (UA) NEGATIVE (NEGATIVE); KETONES,URINE NEGATIVE (NEGATIVE); LEUKOCYTE ESTERASE ,URINE NEGATIVE (NEGATIVE); NITRITE,URINE NEGATIVE (NEGATIVE); PROTEIN,URINE NEGATIVE (NEGATIVE)
[2020-05-01 09:00] LABS: YEAST,URINE FEW /HPF
== END 2020-05-01 09:05 | disposition home or self-care (01) ==
LOC: EDUNIT# 08:14 → ER FS 08:15
DX: R42 Dizziness and giddiness (principal); Z88.1 Allergy status to other antibiotic agents; Z88.8 Allergy status to other drugs, medicaments and biological substances; Z88.2 Allergy status to sulfonamides
CPT/HCPCS: 81000; 84703; 99282

== ENCOUNTER → 2020-08-21 | Outpatient (CLI) | payer SELFPAY ==
[~2020-08-21] MED LIST changes: +GADOBUTROL 7.5 MMOL/7.5 ML (GADAVIST) VIAL IV ONE; +IBUP-1780 PO; +MECL-149 PO
--- NOTE | 2020-08-21 10:48 | Diagnostic Imaging Report ---
PROCEDURE: MR imaging of the brain with and without contrast. TECHNIQUE: Multiplanar, multisequence MR imaging of the brain was performed with and without contrast. INDICATION: Headaches. No prior studies are available for comparison. The ventricles and sulci are within normal limits. There is no diffusion restriction. The normal expected flow voids within the carotid siphons are seen. No acute intra-axial or extra-axial hemorrhage is detected. Corpus callosum is unremarkable. Sella and parasellar structures are unremarkable. There is no abnormal enhancement. IMPRESSION: Unremarkable pre and postcontrast MRI of the brain. Dictated by: Dictated on workstation # [id number]
== END ==
LOC: RAD 09:09
PROVIDERS: ATTEND Nurse Practitioner Family
DX: G43.109 Migraine with aura, not intractable, without status migrainosus (principal)
CPT/HCPCS: 70553

== ENCOUNTER 2020-11-01 17:52 | Emergency (ER) | payer SELFPAY ==
[~2020-11-01] VITALS: Ht 160 cm; Wt 70.3 kg
[~2020-11-01 17:52] MED LIST changes: -GADOBUTROL 7.5 MMOL/7.5 ML (GADAVIST) VIAL IV ONE
--- NOTE | 2020-11-01 19:25 | ED Abdominal Pain ---
General Chief Complaint: Female Reproductive Stated Complaint: ABD PAIN 9 WKS PREG Nursing Triage Note: Pt c/o pelvic pain/cramping-more so on left, onset yesterday. Pt is approx 9 weeks . Denies vaginal bleeding, does report discharge. Sepsis Screen: No Definite Risk Source of Information: Patient Exam Limitations: No Limitations History of Present Illness Date Seen by Provider: November 01, 2020 Time Seen by Provider: 19:00 Initial Comments Patient is a 34-year-old female who presents to the emergency department today with a chief complaint of lower abdominal cramping and discomfort. Patient states she has had this for a couple of days. Patient states that she is approximately 9 weeks with an estimated due date of June 04, 2021. She is a . Her last delivery was in 2013. Patient denies any vaginal bleeding. She has had a little discomfort with urination today. No fevers, chills, cough, congestion. No nausea, vomiting, diarrhea. Normal thus far and she follows up with her family practitioner, Dr. Caldwell on the fifth of this month. Patient was concerned about the pain in her pelvis. She states she has had a little bit of increased vaginal discharge but no foul smells. All other review of systems reviewed and negative except as stated above. Timing/Duration: 24 Hours Severity/Quality: Mild Location: LLQ Radiation: No Radiation Activities at Onset: None Associated Symptoms: Denies Symptoms Allergies and Home Medications Allergies Coded Allergies: aspirin (Unverified Allergy, Mild, 04/27/09) cefaclor (Unverified Allergy, Mild, 04/27/09) amoxicillin (Verified Allergy, Unknown, 10/30/09) morphine (Unverified Adverse Reaction, Intermediate, "breathing problems", 05/01/20) Uncoded Allergies: [id number] (SULFA (SULFONAMIDE ANTIBIOTICS)) (Allergy, Mild, 06/16/09) Home Medications Ibuprofen 800 Mg Tablet, 800 MG PO Q8H PRN for PAIN Prescribed by: KERRY FAUSTIN on 05/01/20 0853 Meclizine HCl 25 Mg Tablet, 25 MG PO Q8H Prescribed by: KERRY FAUSTIN on 05/01/20 0853 Patient Home Medication List Home Medication List Reviewed: Yes Review of Systems Review of Systems Constitutional: see HPI EENTM: No Symptoms Reported Respiratory: No Symptoms Reported Cardiovascular: No Symptoms Reported Gastrointestinal: Abdominal Pain (Left lower pelvic) Genitourinary: Discharge Musculoskeletal: no symptoms reported Skin: no symptoms reported Psychiatric/Neurological: No Symptoms Reported All Other Systems Reviewed Negative Unless Noted: Yes Past Ugkvwjn-Unsbvn-Wwdonp Hx Patient Social History Alcohol Use: Denies Use Smoking Status: Former Smoker Type Used: Cigarettes 2nd Hand Smoke Exposure: No Recent Infectious Disease Expo: No Recent Hopitalizations: No Seasonal Allergies Seasonal Allergies: No Past Medical History Surgeries: Yes (BMT , CERCLAGE) Gallbladder Respiratory: No Currently Using CPAP: No Currently Using BIPAP: No Cardiac: No Neurological: No Reproductive Disorders: No Genitourinary: Yes Bladder Infection Gastrointestinal: Yes Gall Bladder Disease, Irritable Bowel Musculoskeletal: No Endocrine: No HEENT: No Cancer: No Psychosocial: No Integumentary: No Blood Disorders: No Physical Exam Vital Signs Vital Signs - First Documented 11/01/20 18:38 Temp 37.0 Pulse 72 Resp 17 B/P (MAP) 130/65 (86) Pulse Ox 99 O2 Delivery Room Air Capillary Refill : Less Than 3 Seconds Height/Weight/BMI Height: 5'3.00" Weight: 162lbs. oz. 73.006115bj; 27.00 BMI Method:Stated General Appearance: WD/WN, no apparent distress HEENT: PERRL/EOMI Neck: normal inspection Respiratory: lungs clear, normal breath sounds, no respiratory distress, no accessory muscle use Cardiovascular: regular rate, rhythm Gastrointestinal: soft, tenderness (Mild tenderness noted in the left pelvis. No rebound, guarding) Extremities: normal range of motion, normal inspection Pelvic: normal adnexa, no cerv. motion tender, other (No cervical motion tenderness. Os is closed. She does have some thick white cervical discharge, a little bit of tenderness on palpation of both adnexa) Neurologic/Psychiatric: alert, normal mood/affect, oriented x 3 Skin: normal color, warm/dry Progress/Results/Core Measures Results/Orders Lab Results Laboratory Tests Test 11/01/20 19:20 Range/Units Urine Color YELLOW Urine Clarity CLEAR Urine pH 7.0 5-9 Urine Specific [place] 1.010 L 1.016-1.022 Urine Protein NEGATIVE NEGATIVE Urine Glucose (UA) NEGATIVE NEGATIVE Urine Ketones NEGATIVE NEGATIVE Urine Nitrite NEGATIVE NEGATIVE Urine Bilirubin NEGATIVE NEGATIVE Urine Urobilinogen 0.2 < = 1.0 MG/DL Urine Leukocyte Esterase NEGATIVE NEGATIVE Urine RBC (Auto) NEGATIVE NEGATIVE Urine RBC NONE /HPF Urine WBC NONE /HPF Urine Squamous Epithelial Cells 2-5 /HPF Urine Crystals NONE /LPF Urine Bacteria TRACE /HPF Urine Casts NONE /LPF Urine Mucus NEGATIVE /LPF Urine Culture Indicated NO My Orders Orders - NANETTE VASQUES MD Ua Culture If Indicated (11/01/20 19:25) Vital Signs/I&O 11/01/20 18:38 Temp 37.0 Pulse 72 Resp 17 B/P (MAP) 130/65 (86) Pulse Ox 99 O2 Delivery Room Air Blood Pressure Mean: 86 Progress Progress Note : Time: 19:24 Progress Note 34-year-old female with a chief complaint of left lower pelvic pain approximately 9 weeks . Evaluation today includes a physical exam with a pelvic exam, limited to bimanual. Patient is noted to have a closed cervical os. Bedside ultrasound used to identify intrauterine with adequate heart tones. Patient has follow-up with her primary care provider on 05 November. Patient is counseled to drink lots of water, take Tylenol as needed for cramping and return to the emergency room for any vaginal bleeding or worsening pain. She is advised to keep her follow-up appointment with Dr. Caldwell. She verbalized understanding. All questions are sought and answered. Urinalysis wa s also obtained here in the emergency department and it is negative for signs of infection. Departure Impression Primary Impression: Pelvic pain affecting Qualified Codes: O26.891 - Other specified related conditions, first trimester; R10.2 - Pelvic and perineal pain Disposition: 01 HOME, SELF-CARE Condition: Stable Departure-Patient Inst. Decision time for Depature: 19:49 Referrals: WILLIAM CALDWELL MD (PCP/Family) Primary Care Physician Patient Instructions: Pelvic Pain, - The Third Month Add. Discharge Instructions: Drink plenty of fluids to stay well-hydrated. You can take [id number] extra strength Tylenol 2 tablets every 4-6 hours as needed for pain/cramping. Return to the emergency room if you have any vaginal bleeding, worsening pain, fever or any other emergent, concerning symptoms. Please keep your follow-up appointment with Dr. Caldwell this Tuesday. Copy Copies To 1: WILLIAM CALDWELL MD, KATHRYN M MD November 01, 2020 19:25
[2020-11-01 19:30] LABS: BILIRUBIN,URINE NEGATIVE (NEGATIVE); CLARITY,URINE CLEAR; COLOR,URINE YELLOW; GLUCOSE, URINE (UA) NEGATIVE (NEGATIVE); KETONES,URINE NEGATIVE (NEGATIVE); LEUKOCYTE ESTERASE ,URINE NEGATIVE (NEGATIVE); NITRITE,URINE NEGATIVE (NEGATIVE); PROTEIN,URINE NEGATIVE (NEGATIVE)
[2020-11-01 19:39] LABS: BACTERIA,URINE TRACE /HPF
[2020-11-01 19:56] VITALS: BP 130/65
== END 2020-11-01 19:56 | disposition home or self-care (01) ==
LOC: EDUNIT# 17:52 → ER 17:56
DX: O26.891 Other specified pregnancy related conditions, first trimester (principal); R10.2 Pelvic and perineal pain; Z3A.09 9 weeks gestation of pregnancy; Z88.5 Allergy status to narcotic agent; Z88.1 Allergy status to other antibiotic agents; Z88.8 Allergy status to other drugs, medicaments and biological substances; Z88.2 Allergy status to sulfonamides; Z87.891 Personal history of nicotine dependence
CPT/HCPCS: 81000; 99282

== ENCOUNTER 2020-11-26 21:00 | Emergency (ER) | payer MEDICAID ==
[~2020-11-26] VITALS: Ht 160 cm; Wt 71.0 kg
[2020-11-26 21:55] LABS: BILIRUBIN,URINE NEGATIVE (NEGATIVE); CLARITY,URINE CLEAR; COLOR,URINE YELLOW; GLUCOSE, URINE (UA) NEGATIVE (NEGATIVE); KETONES,URINE TRACE (NEGATIVE); LEUKOCYTE ESTERASE ,URINE NEGATIVE (NEGATIVE); NITRITE,URINE NEGATIVE (NEGATIVE); PROTEIN,URINE NEGATIVE (NEGATIVE)
--- NOTE | 2020-11-26 21:57 | ED Abdominal Pain ---
General Chief Complaint: Abdominal/GI Problems Stated Complaint: ABD PAIN - 13 WKS PREGO Nursing Triage Note: LEFT UPPER ABDOMINAL PAIN, N/V DEHYDRATION. Sepsis Screen: No Definite Risk Source of Information: Patient Exam Limitations: No Limitations (SUKUMAR REES STUDENT) History of Present Illness Date Seen by Provider: November 26, 2020 Time Seen by Provider: 21:10 Initial Comments Pt presents to ED via POV with boyfriend at bedside with complaint of abd pain, nausea, weakness. She states that it started this afternoon, no changes in dietary habits or sick contacts. She drank almost 44oz of tea prior to arrival which she states she vomited prior to enter the ED. She complains of 6/10 pain to her LUQ that radiates around her L side to her back, sharp and constant. She denies prior similar episodes of abd pain. She has been having multiple loose bowel movements over the past 4 days. PSH of cholecystectomy, PMH diverticulitis. She is 13wks , . Denies vaginal bleeding, states that she has had some white-colored vaginal drainage. Denies symptoms of dysuria, fevers, chills, chest pain, SOB. Timing/Duration: 4-6 Hours Severity/Quality: Moderate Location: LUQ Radiation: Back Activities at Onset: Activity (walking) Modifying Factors: Improves With Movement, Improves With Palpation Associated Symptoms: Back Pain; No Chest Pain, No Fever/Chills; Nausea/Vomiting; No Shortness of Air; Weakness (SUKUMAR REES STUDENT) Allergies and Home Medications Allergies Coded Allergies: aspirin (Unverified Allergy, Mild, 04/27/09) cefaclor (Unverified Allergy, Mild, 04/27/09) amoxicillin (Verified Allergy, Unknown, 10/30/09) morphine (Unverified Adverse Reaction, Intermediate, "breathing problems", 05/01/20) Uncoded Allergies: [id number] (SULFA (SULFONAMIDE ANTIBIOTICS)) (Allergy, Mild, 06/16/09) Home Medications Ibuprofen 800 Mg Tablet, 800 MG PO Q8H PRN for PAIN Prescribed by: KERRY FAUSTIN on 05/01/20 0853 Meclizine HCl 25 Mg Tablet, 25 MG PO Q8H Prescribed by: KERRY FAUSTIN on 05/01/20 0853 Patient Home Medication List Home Medication List Reviewed: Yes (SUKUMAR REES) Review of Systems Review of Systems Constitutional: No chills, No fever; weakness EENTM: No Eye Pain, No Mouth Pain Respiratory: Denies Cough, Denies Shortness of Air Cardiovascular: Denies Chest Pain, Denies Edema, Denies Irregular Heart Rate Gastrointestinal: Abdominal Pain; Denies Blood Streaked Stools, Denies Cons tipated; Diarrhea, Nausea, Vomiting Genitourinary: Denies Burning; Drainage ("white-colored"); Denies Hematuria Musculoskeletal: No back pain, No joint pain, No muscle pain Skin: No change in color, No rash Psychiatric/Neurological: Denies Headache, Denies Numbness, Denies Paresthesia, Denies Tingling; Weakness (SUKUMAR REES) All Other Systems Reviewed Negative Unless Noted: Yes (SUKUMAR REES) Past Ujrqkei-Lapmex-Twpplf Hx Past Med/Social Hx: Reviewed Nursing Past Med/Soc Hx (SUKUMAR REES) Patient Social History Alcohol Use: Denies Use Smoking Status: Current Everyday Smoker Type Used: Cigarettes 2nd Hand Smoke Exposure: No Recent Infectious Disease Expo: No Recent Hopitalizations: No Alcohol Use?: No (SUKUMAR REES) Immunizations Up To Date Tetanus Booster (TDap): Unknown (SUKUMAR REES) Seasonal Allergies Seasonal Allergies: No (SUKUMAR REES) Past Medical History Surgeries: Yes (BMT , CERCLAGE) Gallbladder Respiratory: No Currently Using CPAP: No Currently Using BIPAP: No Cardiac: No Neurological: No : Yes Last Menstrual Period: Aug 28, 2020 Reproductive Disorders: No Genitourinary: Yes Bladder Infection Gastrointestinal: Yes Gall Bladder Disease, Irritable Bowel Musculoskeletal: No Endocrine: No HEENT: No Cancer: No Psychosocial: No Integumentary: No Blood Disorders: No (SUKUMAR REES) Physical Exam Vital Signs Vital Signs - First Documented 11/26/20 21:09 Temp 36.2 Pulse 95 Resp 18 B/P (MAP) 100/60 (73) Pulse Ox 99 O2 Delivery Room Air (D[place]IN [place]) Vital Signs Capillary Refill : Less Than 3 Seconds (SUKUMAR REES) Height/Weight/BMI Height: 5'3.00" Weight: 162lbs. oz. 73.237414oa; 27.00 BMI Method:Stated General Appearance: WD/WN, no apparent distress HEENT: PERRL/EOMI, normal ENT inspection Neck: non-tender, full range of motion, supple, normal inspection Respiratory: chest non-tender, lungs clear, normal breath sounds, no respiratory distress, no accessory muscle use Cardiovascular: normal peripheral pulses, regular rate, rhythm, no edema, no murmur Peripheral Pulses: 2+ Dorsalis Pedis (R), 2+ Left Dors-Pedis (L), 2+ Radial Pu lses (R), 2+ Radial Pulses (L) Gastrointestinal: normal bowel sounds, soft; No distended, No guarding; ten derness (mild tenderness to epigastric region) Rectal: deferred Extremities: normal range of motion, non-tender, normal inspection, normal capillary refill Back: normal inspection, no CVA tenderness, no vertebral tenderness Neurologic/Psychiatric: no motor/sensory deficits, alert, normal mood/affect, oriented x 3 Skin: normal color, warm/dry Lymphatic: no adenopathy (SUKUMAR REES MED STUDENT) Progress/Results/Core Measures Results/Orders Lab Results Laboratory Tests Test 11/26/20 21:10 11/26/20 21:57 Range/Units Urine Color YELLOW Urine Clarity CLEAR Urine pH 6.0 5-9 Urine Specific [place] 1.025 H 1.016-1.022 Urine Protein NEGATIVE NEGATIVE Urine Glucose (UA) NEGATIVE NEGATIVE Urine Ketones TRACE H NEGATIVE Urine Nitrite NEGATIVE NEGATIVE Urine Bilirubin NEGATIVE NEGATIVE Urine Urobilinogen 1.0 < = 1.0 MG/DL Urine Leukocyte Esterase NEGATIVE NEGATIVE Urine RBC (Auto) NEGATIVE NEGATIVE Urine RBC NONE /HPF Urine WBC 2-5 /HPF Urine Crystals PRESENT H /LPF Urine Amorphous Sediment FEW ZENY URATES H /LPF Urine Bacteria LARGE H /HPF Urine Casts NONE /LPF Urine Mucus MODERATE H /LPF Urine Culture Indicated YES Urine Test POSITIVE NEGATIVE White Blood Count 10.8 4.3-11.0 10^3/uL Red Blood Count 4.62 3.80-5.11 10^6/uL Hemoglobin 14.3 11.5-16.0 g/dL Hematocrit 42 35-52 % Mean Corpuscular Volume 90 80-99 fL Mean Corpuscular Hemoglobin 31 25-34 pg Mean Corpuscular Hemoglobin Concent 34 32-36 g/dL Red Cell Distribution Width 13.2 10.0-14.5 % Platelet Count 221 130-400 10^3/uL Mean Platelet Volume 10.4 9.0-12.2 fL Immature Granulocyte % (Auto) 0 % Neutrophils (%) (Auto) 76 H 42-75 % Lymphocytes (%) (Auto) 19 12-44 % Monocytes (%) (Auto) 4 0-12 % Eosinophils (%) (Auto) 1 0-10 % Basophils (%) (Auto) 0 0-10 % Neutrophils # (Auto) 8.2 H 1.8-7.8 10^3/uL Lymphocytes # (Auto) 2.0 1.0-4.0 10^3/uL Monocytes # (Auto) 0.4 0.0-1.0 10^3/uL Eosinophils # (Auto) 0.1 0.0-0.3 10^3/uL Basophils # (Auto) 0.0 0.0-0.1 10^3/uL Immature Granulocyte # (Auto) 0.0 0.0-0.1 10^3/uL Sodium Level 135 135-145 MMOL/L Potassium Level 3.5 L 3.6-5.0 MMOL/L Chloride Level 103 98-107 MMOL/L Carbon Dioxide Level 21 21-32 MMOL/L Anion Gap 11 5-14 MMOL/L Blood Urea Nitrogen 4 L 7-18 MG/DL Creatinine 0.75 0.60-1.30 MG/DL Estimat Glomerular Filtration Rate > 60 BUN/Creatinine Ratio 5 Glucose Level 108 H 70-105 MG/DL Calcium Level 9.2 8.5-10.1 MG/DL Corrected Calcium 9.1 8.5-10.1 MG/DL Total Bilirubin 0.5 0.1-1.0 MG/DL Aspartate Amino Transf (AST/SGOT) 14 5-34 U/L Alanine Aminotransferase (ALT/SGPT) 16 0-55 U/L Alkaline Phosphatase 68 40-136 U/L C-Reactive Protein High Sensitivity 0.67 H 0.00-0.50 MG/DL Total Protein 7.0 6.4-8.2 GM/DL Albumin 4.1 3.2-4.5 GM/DL Lipase 8 8-78 U/L (DARRIN [place]) My Orders Orders - DARRIN [place] Ua Culture If Indicated (11/26/20 21:47) Urine Bedside (11/26/20 21:47) Cbc With Automated Diff (11/26/20 21:47) Comprehensive Metabolic Panel (11/26/20 21:47) Hs C Reactive Protein (11/26/20 21:47) Lipase (11/26/20 21:47) Ondansetron Injection (Zofran Injectio (11/26/20 22:00) Lidocaine 2% Viscous 15 Ml (Xylocaine Vi (11/26/20 22:00) Antacid Suspension (Mylanta Suspension (11/26/20 22:00) Ondansetron Oral Dissolve Tab (Zofran (11/26/20 22:00) Urine Culture (11/26/20 21:10) Hcg,Qualitative Urine (11/26/20 22:06) (DARRIN [place]) Medications Given in ED Current Medications Medications Dose Ordered Sig/Tony Route Start Time Stop Time Status Last Admin Dose Admin Al Hydrox/Mg Hydrox/Simethicone 30 ml ONCE ONCE PO 11/26/20 22:00 11/26/20 22:01 DC 11/26/20 22:04 30 ML Lidocaine HCl 15 ml ONCE ONCE PO 11/26/20 22:00 11/26/20 22:01 DC 11/26/20 22:04 15 ML Ondansetron HCl 4 mg ONCE ONCE PO 11/26/20 22:00 11/26/20 22:01 DC 11/26/20 22:04 4 MG (DARRIN [place]) Vital Signs/I&O 11/26/20 21:09 Temp 36.2 Pulse 95 Resp 18 B/P (MAP) 100/60 (73) Pulse Ox 99 O2 Delivery Room Air (DARRIN [place]) Blood Pressure Mean: 73 Progress Progress Note : Time: 22:05 Progress Note I attest that I saw this patient alongside the medical student and agree with his documented history, physical exam and review of systems except as otherwise noted. Patient here for epigastric and left upper quadrant abdominal discomfort radiating through to her back. We will get some labs and give her some Zofran for her nausea. GI cocktail to see if this helps her epigastric abdominal discomfort since she has a history of gastritis. She does have a history of clue cells from 3 weeks ago. She is complaining of some discharge today and denies that she got any Flagyl from 3 weeks ago so plan to just go ahead and treat her. She has says she has a history of diverticulitis so it is reasonable to assume that that could be part of the reason she is having her symptoms. If her labs are reflecting a benign state as are her vitals and would probably just put her on a full course of Flagyl, probiotics and have her follow-up in [address] Larose at her scheduled appointment. She did not get much of a benefit from the GI cocktail. If she still very uncomfortable at the time of discharge we will send her home with a little hydrocodone to help get her through as well as some Zofran. (DARRIN [place]) Departure Impression Primary Impression: Colitis Additional Impression: Bacterial vaginosis in Disposition: HOME, SELF-CARE Condition: Stable Departure-Patient Inst. Decision time for Depature: 22:39 (DARRIN [place]) Referrals: WILLIAM LAROSE MD (PCP/Family) Primary Care Physician Patient Instructions: Bacterial Vaginosis, Colitis (DC) Add. Discharge Instructions: Your left upper quadrant pain did not get better with medicines to treat your stomach so I suspect that with your diarrhea that this is a colon infection. It could be viral or could be bacterial. We need to treat you with antibiotics for your bacterial vaginosis anyway so I am going to put you on Flagyl 3 times a day for the next week. Start taking probiotics twice a day while you are on the antibiotics to prevent bad diarrhea. Follow-up with your primary care doctor at your scheduled appointment in 1 week. Return to the ER if you are having worsening symptoms. Zofran 1 tablet under the tongue every 6 hours as necessary for nausea and/or vomiting. Tylenol 1000 mg every 8 hours as necessary for pain. Heating pads as necessary for pain. If you have significant diarrhea and you cannot keep up with your fluid intake then I would recommend Imodium/loperamide 2 tablets initially and 1 tablet every 4 hours afterwards that you are still having loose, watery stools until your stools become more soft to solid. All discharge instructions reviewed with patient and/or family. Voiced understanding. Scripts Metronidazole (Flagyl) 500 Mg Tablet 500 MG PO TID for 7 Days, #21 TAB 0 Refills Prov: DARRIN [place] 11/26/20 Ondansetron (Ondansetron Odt) 4 Mg Tab.rapdis 4 MG PO Q6H PRN for NAUSEA/VOMITING, #12 TAB 0 Refills Prov: DARRIN [place] 11/26/20 Copy Copies To 1: WILLIAM LAROSE MD,[facility] MED STUDENT November 26, 2020 21:56 DARRIN [place] November 26, 2020 22:17
[2020-11-26] MEDS ORDERED: ONDANSETRON 4 MG (ZOFRAN) ORAL DISSOLVE TAB PO ONE (22:00)
[2020-11-26] MEDS ORDERED: ONDANSETRON 4 MG/2 ML (SDV) Z0FRAN IVP ONE (22:00)
[2020-11-26] MEDS ORDERED: ANTACID SUSP 30 ML UDC (MYLANTA) PO ONE (22:00)
[2020-11-26] MEDS ORDERED: LIDOCAINE 2% VISCOUS 15 ML UDC PO ONE (22:00)
[2020-11-26 22:04] LABS: AMORPHOUS SEDIMENT,UR FEW AMOR URATES /LPF; BACTERIA,URINE LARGE /HPF
[2020-11-26 22:07] LABS: BASOPHILS % (AUTO) 0 % (0-10); EOSINOPHILS # (AUTO) 0.1 10^3/uL (0.0-0.3); EOSINOPHILS % (AUTO) 1 % (0-10); HEMATOCRIT 42 % (35-52); HEMOGLOBIN 14.3 g/dL (11.5-16.0); LYMPHOCYTES % (AUTO) 19 % (12-44); MEAN CORPUSCULAR HEMOGLOBIN 31 pg (25-34); MEAN CORPUSCULAR HGB CONC 34 g/dL (32-36); MEAN CORPUSCULAR VOLUME 90 fL (80-99); MEAN PLATELET VOLUME 10.4 fL (9.0-12.2); MONOCYTES # (AUTO) 0.4 10^3/uL (0.0-1.0); MONOCYTES % (AUTO) 4 % (0-12); NEUTROPHILS # (AUTO) 8.2 10^3/uL (1.8-7.8); NEUTROPHILS % (AUTO) 76 % (42-75); PLATELET COUNT 221 10^3/uL (130-400); WHITE BLOOD COUNT 10.8 10^3/uL (4.3-11.0)
[2020-11-26 22:17] LABS: CHLORIDE 103 MMOL/L (98-107)
[2020-11-26 22:18] LABS: ALBUMIN 4.1 GM/DL (3.2-4.5); POTASSIUM 3.5 MMOL/L (3.6-5.0); SODIUM 135 MMOL/L (135-145)
[2020-11-26 22:19] LABS: CALCIUM 9.2 MG/DL (8.5-10.1)
[2020-11-26 22:20] LABS: GLUCOSE 108 MG/DL (70-105)
[2020-11-26 22:21] LABS: CARBON DIOXIDE 21 MMOL/L (21-32)
[2020-11-26 22:22] LABS: BILIRUBIN,TOTAL 0.5 MG/DL (0.1-1.0)
[2020-11-26 22:24] LABS: ALKALINE PHOSPHATASE 68 U/L (40-136); CREATININE SERUM 0.75 MG/DL (0.60-1.30); GFR ESTIMATED > 60
[2020-11-26 22:25] LABS: BUN/CREATININE RATIO 5
[2020-11-26 22:27] LABS: ALANINE AMINOTRANSFERASE 16 U/L (0-55); LIPASE 8 U/L (8-78)
[2020-11-26] MEDS ORDERED: METR500T PO (22:43)
[2020-11-26] MEDS ORDERED: ONDA4TAB11 PO (22:43)
[2020-11-26 22:49] VITALS: BP 120/69
== END 2020-11-26 22:50 | disposition home or self-care (01) ==
LOC: EDUNIT# 21:00 → ER 21:02
DX: O23.591 Infection of other part of genital tract in pregnancy, first trimester (principal); N76.0 Acute vaginitis; O99.611 Diseases of the digestive system complicating pregnancy, first trimester; K52.9 Noninfective gastroenteritis and colitis, unspecified; O99.331 Smoking (tobacco) complicating pregnancy, first trimester; F17.210 Nicotine dependence, cigarettes, uncomplicated; Z90.49 Acquired absence of other specified parts of digestive tract; Z87.19 Personal history of other diseases of the digestive system; Z88.1 Allergy status to other antibiotic agents; Z3A.13 13 weeks gestation of pregnancy
CPT/HCPCS: 36415; 80053; 81000; 83690; 84703; 85025; 86141; 87088

== ENCOUNTER 2020-12-22 14:22 | Emergency (ER) | payer MEDICAID ==
[~2020-12-22] VITALS: Ht 160.5 cm; Wt 71.7 kg
--- NOTE | 2020-12-22 14:38 | ED Abdominal Pain ---
General Chief Complaint: Abdominal/GI Problems Stated Complaint: STOMACH PAIN, R SIDE PAIN Source of Information: Patient Exam Limitations: No Limitations History of Present Illness Date Seen by Provider: Dec 22, 2020 Time Seen by Provider: 14:37 Initial Comments To ER with bilateral lower abdominal pain worse on the right side ongoing since she became . She is about [address] Larose. She has dark urine and was recently treated for urinary tract infection, believes she may still have it. Timing/Duration: Other Severity/Quality: Moderate Location: Suprapubic Radiation: No Radiation Activities at Onset: None Associated Symptoms: Denies Symptoms Allergies and Home Medications Allergies Coded Allergies: aspirin (Unverified Allergy, Mild, 04/27/09) cefaclor (Unverified Allergy, Mild, 04/27/09) amoxicillin (Verified Allergy, Unknown, 10/30/09) morphine (Unverified Adverse Reaction, Intermediate, "breathing problems", 05/01/20) Uncoded Allergies: [id number] (SULFA (SULFONAMIDE ANTIBIOTICS)) (Allergy, Mild, 06/16/09) Home Medications Cefdinir 300 Mg Capsule, 300 MG PO BID Prescribed by: HERNAN PERALTA on 12/22/20 154 Ibuprofen 800 Mg Tablet, 800 MG PO Q8H PRN for PAIN Prescribed by: KERRY FAUSTIN on 05/01/20 0853 L.acidoph & ParacaseiB.lactis 1 Each Capsule, 1 EACH PO BID Prescribed by: HERNAN PERALTA on 12/22/20 1547 Meclizine HCl 25 Mg Tablet, 25 MG PO Q8H Prescribed by: KERRY FAUSTIN on 05/01/20 0853 Metronidazole 500 Mg Tablet, 500 MG PO TID Prescribed by: DARRIN CANADA on 11/26/20 2243 Ondansetron 4 Mg Tab.rapdis, 4 MG PO Q6H PRN for NAUSEA/VOMITING Prescribed by: DARRIN CANADA on 11/26/20 2243 Potassium Chloride 20 Meq Packet, 20 MEQ PO BID Prescribed by: HERNAN PERALTA on 12/22/20 1546 Patient Home Medication List Home Medication List Reviewed: Yes Review of Systems Review of Systems Constitutional: see HPI EENTM: No Symptoms Reported Respiratory: No Symptoms Reported Cardiovascular: No Symptoms Reported Gastrointestinal: See HPI, Abdominal Pain Genitourinary: No Symptoms Reported Musculoskeletal: no symptoms reported Skin: no symptoms reported Psychiatric/Neurological: No Symptoms Reported Endocrine: No Symptoms Reported Past Ceofvou-Wzazuc-Kfiiiz Hx Patient Social History Type Used: Cigarettes 2nd Hand Smoke Exposure: No Recent Hopitalizations: No Immunizations Up To Date Tetanus Booster (TDap): Unknown Seasonal Allergies Seasonal Allergies: No Past Medical History Surgeries: Yes (BMT , CERCLAGE) Gallbladder Respiratory: No Currently Using CPAP: No Currently Using BIPAP: No Cardiac: No Neurological: No Reproductive Disorders: No Genitourinary: Yes Bladder Infection Gastrointestinal: Yes Gall Bladder Disease, Irritable Bowel Musculoskeletal: No Endocrine: No HEENT: No Cancer: No Psychosocial: No Integumentary: No Blood Disorders: No Physical Exam Vital Signs Vital Signs - First Documented 12/22/20 14:34 Temp 36.7 Pulse 78 Resp 16 B/P (MAP) 136/72 (93) O2 Delivery Room Air Capillary Refill : Height/Weight/BMI Height: 5'3.00" Weight: 162lbs. oz. 73.605170bd; 27.00 BMI Method:Stated General Appearance: WD/WN, no apparent distress Respiratory: no respiratory distress, no accessory muscle use Gastrointestinal: normal bowel sounds, non tender, soft Extremities: normal range of motion, non-tender Neurologic/Psychiatric: alert, normal mood/affect, oriented x 3 Skin: normal color, warm/dry Progress/Results/Core Measures Results/Orders Lab Results Laboratory Tests Test 12/22/20 14:34 12/22/20 14:45 Range/Units Urine Color ORANGE Urine Clarity CLOUDY Urine pH 6.0 5-9 Urine Specific Jasper >=1.030 1.016-1.022 Urine Protein TRACE H NEGATIVE Urine Glucose (UA) NEGATIVE NEGATIVE Urine Ketones NEGATIVE NEGATIVE Urine Nitrite NEGATIVE NEGATIVE Urine Bilirubin NEGATIVE NEGATIVE Urine Urobilinogen 0.2 < = 1.0 MG/DL Urine Leukocyte Esterase 1+ H NEGATIVE Urine RBC (Auto) NEGATIVE NEGATIVE Urine RBC 0-2 /HPF Urine WBC 10-25 H /HPF Urine Squamous Epithelial Cells 25-50 H /HPF Urine Crystals PRESENT H /LPF Urine Calcium Oxalate Crystals MODERATE H /LPF Urine Amorphous Sediment MOD ZENY URATES H /LPF Urine Bacteria LARGE H /HPF Urine Casts NONE /LPF Urine Mucus NEGATIVE /LPF Urine Culture Indicated YES White Blood Count 10.4 4.3-11.0 10^3/uL Red Blood Count 4.25 3.80-5.11 10^6/uL Hemoglobin 13.4 11.5-16.0 g/dL Hematocrit 39 35-52 % Mean Corpuscular Volume 92 80-99 fL Mean Corpuscular Hemoglobin 32 25-34 pg Mean Corpuscular Hemoglobin Concent 34 32-36 g/dL Red Cell Distribution Width 13.5 10.0-14.5 % Platelet Count 214 130-400 10^3/uL Mean Platelet Volume 10.1 9.0-12.2 fL Immature Granulocyte % (Auto) 0 % Neutrophils (%) (Auto) 57 42-75 % Lymphocytes (%) (Auto) 37 12-44 % Monocytes (%) (Auto) 4 0-12 % Eosinophils (%) (Auto) 1 0-10 % Basophils (%) (Auto) 0 0-10 % Neutrophils # (Auto) 5.9 1.8-7.8 X 10^3 Lymphocytes # (Auto) 3.9 1.0-4.0 X 10^3 Monocytes # (Auto) 0.5 0.0-1.0 X 10^3 Eosinophils # (Auto) 0.1 0.0-0.3 10^3/uL Basophils # (Auto) 0.0 0.0-0.1 10^3/uL Immature Granulocyte # (Auto) 0.0 0.0-0.1 10^3/uL Sodium Level 139 135-145 MMOL/L Potassium Level 2.8 L 3.6-5.0 MMOL/L Chloride Level 107 98-107 MMOL/L Carbon Dioxide Level 21 21-32 MMOL/L Anion Gap 11 5-14 MMOL/L Blood Urea Nitrogen 6 L 7-18 MG/DL Creatinine 0.65 0.60-1.30 MG/DL Estimat Glomerular Filtration Rate > 60 BUN/Creatinine Ratio 9 Glucose Level 105 70-105 MG/DL Calcium Level 8.1 L 8.5-10.1 MG/DL Corrected Calcium 8.5 8.5-10.1 MG/DL Total Bilirubin 0.2 0.1-1.0 MG/DL Aspartate Amino Transf (AST/SGOT) 9 5-34 U/L Alanine Aminotransferase (ALT/SGPT) 15 0-55 U/L Alkaline Phosphatase 62 40-136 U/L Total Protein 5.9 L 6.4-8.2 GM/DL Albumin 3.5 3.2-4.5 GM/DL Human Chorionic Gonadotropin, Quant 8754 H <5 MIU/ML My Orders Orders - HERNAN PERALTA APRN Hcg,Quantitative (12/22/20 14:31) Cbc With Automated Diff (12/22/20 14:35) Comprehensive Metabolic Panel (12/22/20 14:35) Ua Culture If Indicated (12/22/20 14:35) Ed Iv/Invasive Line Start (12/22/20 14:35) Ns Iv 1000 Ml (Sodium Chloride 0.9%) (12/22/20 14:45) Us Ob Preg Late(14-40wks)60285 (12/22/20 14:35) Urine Culture (12/22/20 14:34) Ns Iv 500 Ml (Sodium Chloride 0.9%) (12/22/20 15:45) Potassium Cl 10meq/50ml Ivpb (Kcl 10 Meq (12/22/20 15:45) Potassium Chloride (Tablet) (Klor Con Ta (12/22/20 15:45) Ceftriaxone (Rocephin) (12/22/20 15:45) Medications Given in ED Current Medications Medications Dose Ordered Sig/Tony Route Start Time Stop Time Status Last Admin Dose Admin Ceftriaxone Sodium 1000 mg/ Sterile Water 10 ml @ 200 mls/hr ONCE ONCE IV 12/22/20 15:45 12/22/20 15:47 DC 12/22/20 15:44 200 MLS/HR Potassium Chloride 40 meq ONCE ONCE PO 12/22/20 15:45 12/22/20 15:46 DC 12/22/20 15:45 40 MEQ Potassium Chloride 50 ml @ 50 mls/hr ONCE ONCE IV 12/22/20 15:45 12/22/20 16:44 12/22/20 15:45 50 MLS/HR Vital Signs/I&O 12/22/20 14:34 Temp 36.7 Pulse 78 Resp 16 B/P (MAP) 136/72 (93) O2 Delivery Room Air Departure Communication (Admissions) She has had some diarrhea over the past few days, this is the most likely cause of her hypokalemia. Impression Primary Impression: Pelvic pain affecting Additional Impressions: Urinary tract infection Hypokalemia Disposition: 01 HOME, SELF-CARE Condition: Stable Departure-Patient Inst. Decision time for Depature: 15:41 Referrals: WILLIAM LAROSE MD (PCP/Family) Primary Care Physician Patient Instructions: No Instuctions Given, High Potassium Diet Add. Discharge Instructions: 1. Take the antibiotics and the nausea medication and the potassium supplement as directed. Follow-up with Dr. Larose next week. All discharge instructions reviewed with patient and/or family. Voiced understanding. Scripts L.acidoph & Paracasei,B.lactis (Probiotic) 1 Each Capsule 1 EACH PO BID, #14 CAP Prov: HERNAN PERALTA FIELD RETURN REPAIRER 12/22/20 Potassium Chloride (Potassium Chloride) 20 Meq Packet 20 MEQ PO BID, #10 PACKET Prov: HERNAN PERALTA APRN 12/22/20 Cefdinir (Cefdinir) 300 Mg Capsule 300 MG PO BID, #10 CAP Prov: HERNAN PERALTA APRN 12/22/20 Work/School Note: Work Release Form Date Seen in the Emergency Department: Dec 22, 2020 Return to Work: Dec 23, 2020 Copy Copies To 1: WILLIAM LAROSE MD, PETER J APRN Dec 22, 2020 14:38
[2020-12-22 14:41] LABS: BILIRUBIN,URINE NEGATIVE (NEGATIVE); CLARITY,URINE CLOUDY; COLOR,URINE ORANGE; GLUCOSE, URINE (UA) NEGATIVE (NEGATIVE); KETONES,URINE NEGATIVE (NEGATIVE); LEUKOCYTE ESTERASE ,URINE 1+ (NEGATIVE); NITRITE,URINE NEGATIVE (NEGATIVE); PROTEIN,URINE TRACE (NEGATIVE)
[2020-12-22] MEDS ORDERED: NS IV 1000 ML 1,000 ML IV SCH (14:45)
[2020-12-22 14:49] LABS: BACTERIA,URINE LARGE /HPF; RBC,URINE 0-2 /HPF; SQUAMOUS EPITHELIAL CELL,UR 25-50 /HPF
[2020-12-22 14:50] LABS: AMORPHOUS SEDIMENT,UR MOD AMOR URATES /LPF; CALCIUM OXALATE CRYSTALS,UR MODERATE /LPF
[2020-12-22 14:53] LABS: BASOPHILS % (AUTO) 0 % (0-10); EOSINOPHILS # (AUTO) 0.1 10^3/uL (0.0-0.3); EOSINOPHILS % (AUTO) 1 % (0-10); HEMATOCRIT 39 % (35-52); HEMOGLOBIN 13.4 g/dL (11.5-16.0); LYMPHOCYTES # (AUTO) 3.9 X 10^3 (1.0-4.0); LYMPHOCYTES % (AUTO) 37 % (12-44); MEAN CORPUSCULAR HEMOGLOBIN 32 pg (25-34); MEAN CORPUSCULAR HGB CONC 34 g/dL (32-36); MEAN CORPUSCULAR VOLUME 92 fL (80-99); MEAN PLATELET VOLUME 10.1 fL (9.0-12.2); MONOCYTES # (AUTO) 0.5 X 10^3 (0.0-1.0); MONOCYTES % (AUTO) 4 % (0-12); NEUTROPHILS # (AUTO) 5.9 X 10^3 (1.8-7.8); NEUTROPHILS % (AUTO) 57 % (42-75); PLATELET COUNT 214 10^3/uL (130-400); WHITE BLOOD COUNT 10.4 10^3/uL (4.3-11.0)
[2020-12-22 15:04] LABS: ALBUMIN 3.5 GM/DL (3.2-4.5); CHLORIDE 107 MMOL/L (98-107); POTASSIUM 2.8 MMOL/L (3.6-5.0); SODIUM 139 MMOL/L (135-145)
[2020-12-22 15:05] LABS: CALCIUM 8.1 MG/DL (8.5-10.1)
[2020-12-22 15:06] LABS: GLUCOSE 105 MG/DL (70-105); TOTAL PROTEIN 5.9 GM/DL (6.4-8.2)
[2020-12-22 15:08] LABS: BILIRUBIN,TOTAL 0.2 MG/DL (0.1-1.0); CARBON DIOXIDE 21 MMOL/L (21-32)
[2020-12-22 15:10] LABS: ALKALINE PHOSPHATASE 62 U/L (40-136); CREATININE SERUM 0.65 MG/DL (0.60-1.30); GFR ESTIMATED > 60
[2020-12-22 15:11] LABS: BUN/CREATININE RATIO 9
[2020-12-22 15:13] LABS: ALANINE AMINOTRANSFERASE 15 U/L (0-55)
[2020-12-22] MEDS ORDERED: KCL 10 MEQ TAB (MICRO K) PO ONE (15:45)
[2020-12-22] MEDS ORDERED: POTASSIUM CL 10MEQ/50ML IVPB 50 ML IV ONE (15:45)
[2020-12-22] MEDS ORDERED: cefTRIAXone 1,000 MG in WATER (STERILE) FOR INJECTION 10 ML IV ONE (15:45)
[2020-12-22] MEDS ORDERED: NS IV 500 ML 500 ML IV SCH (15:45)
[2020-12-22] MEDS ORDERED: POTA20PA28 PO (15:46)
[2020-12-22] MEDS ORDERED: CEFD300C3 PO (15:46)
[2020-12-22] MEDS ORDERED: L.AC1CAP6 PO (15:47)
--- NOTE | 2020-12-22 16:35 | Diagnostic Imaging Report ---
INDICATION: Right lower quadrant pain, . TECHNIQUE: Multiple real-time grayscale images were obtained over the gravid uterus. COMPARISON: None FINDINGS: A single living intrauterine gestation is identified. heart rate is detected. The ovaries are nonvisualized. The uterus measures 13.6 x 10.0 x 11.0 cm. Placenta is anterior. Normal subject of appearance of the amniotic fluid volume. Biometrical measurements are as follows: Biparietal 3.64 cm, age 17 weeks 2 days. Head circumference 12.67 cm, age 16 weeks 3 days. Abdominal circumference 10.69 cm, age 16 weeks 5 days. Femur length 2.17 cm, age 16 weeks 4 days. Sonographic estimate age: 16 weeks 6 days. Sonographic estimated date of delivery: 06/02/2021. Estimated Weight: 161 gm (+/- 23 gm). LMP percentile: 41%. heart rate: 150 beats per minute. number: 1 of 1. IMPRESSION: Single living intrauterine gestation with an estimated gestational age of 16 weeks and 6 days by today's ultrasound. Dictated by: Dictated on workstation # [id number]
[2020-12-22 16:40] VITALS: BP 131/68
== END 2020-12-22 16:40 | disposition home or self-care (01) ==
LOC: EDUNIT# 14:22 → ER 14:25
DX: O26.892 Other specified pregnancy related conditions, second trimester (principal); R10.2 Pelvic and perineal pain; N39.0 Urinary tract infection, site not specified; E87.6 Hypokalemia; Z3A.17 17 weeks gestation of pregnancy
CPT/HCPCS: 36415; 76805; 80053; 81000; 84702; 85025; 87088

== ENCOUNTER 2021-01-25 16:55 | Outpatient (CLI) | payer MEDICAID ==
[~2021-01-25 16:55] MED LIST changes: +CEFD300C3 PO; +L.AC1CAP6 PO; +POTA20PA28 PO
[2021-01-25 17:10] VITALS: BP 116/55
[2021-01-25 17:25] VITALS: BP 116/55
[2021-01-25 17:27] LABS: BILIRUBIN,URINE NEGATIVE (NEGATIVE); CLARITY,URINE CLEAR; COLOR,URINE YELLOW; GLUCOSE, URINE (UA) NEGATIVE (NEGATIVE); KETONES,URINE NEGATIVE (NEGATIVE); LEUKOCYTE ESTERASE ,URINE TRACE (NEGATIVE); NITRITE,URINE NEGATIVE (NEGATIVE); PROTEIN,URINE NEGATIVE (NEGATIVE)
[2021-01-25 17:34] LABS: BACTERIA,URINE TRACE /HPF
[2021-01-25] MEDS ORDERED: CEFD300C3 PO (17:56)
[2021-01-25] MEDS ORDERED: LIDOCAINE 1% INJ 20 ML 20 ML VIAL INJ ONE (18:00)
[2021-01-25] MEDS ORDERED: cefTRIAXone 1,000 MG VIAL IM ONE (18:00)
[2021-01-25] MEDS ORDERED: LIDOCAINE PF 1% 5 ML (XYLOCAINE) AMP ONE (18:06)
[2021-01-25] MEDS ORDERED: cefTRIAXone 1,000 MG VIAL ONE (18:07)
--- NOTE | 2021-01-26 08:53 | Physician Query-Final Dx ---
Clinic Account Progress/Dx Physician Query: Please give diagnosis Please include # weeks gestation Date of Service Jan 25, 2021 at 16:55 SANJEEV RUTH Jan 26, 2021 08:53
== END 2021-01-25 18:22 | disposition home or self-care (01) ==
LOC: WSo 16:55 → LDRP 16:55 → WSo 18:22
PROVIDERS: ATTEND Family Medicine
DX: O26.899 Other specified pregnancy related conditions, unspecified trimester (principal); Z3A.00 Weeks of gestation of pregnancy not specified
CPT/HCPCS: 81000; 87088; 96372; G0463; 99214

== ENCOUNTER 2021-02-05 21:17 | Emergency (ER) | payer MEDICAID ==
[~2021-02-05] VITALS: Ht 160 cm; Wt 74.9 kg
[2021-02-05 21:25] VITALS: BP 107/62
[2021-02-05] MEDS ORDERED: PROMETHAZINE 25 MG (PHENERGAN) TAB PO ONE (21:45)
--- NOTE | 2021-02-05 21:50 | ED GI ---
General Stated Complaint: DIARRHEA;PUKING;BODY ACHES Source of Information: Patient Exam Limitations: No Limitations History of Present Illness Date Seen by Provider: Feb 05, 2021 Time Seen by Provider: 21:30 Initial Comments 35-year-old female that is roughly 23 weeks otherwise healthy coming in due to 4 days of nonbloody nonbilious vomiting, mild headache, nonbloody diarrhea. She is concerned she has Covid as she states she has been exposed to multiple people. Otherwise denying any fever, abdominal pain, vaginal bleeding, loss of fluid like her water broke, weakness, numbness, or any other concerns. She states she takes Zofran for nausea with her but is out at this time and believes that could help with her nausea. She is able to keep some fluids down. She states her daughter started having symptoms yesterday and son had an elevated temperature today. Allergies and Home Medications Allergies Coded Allergies: aspirin (Unverified Allergy, Mild, 04/27/09) cefaclor (Unverified Allergy, Mild, 04/27/09) amoxicillin (Verified Allergy, Unknown, 10/30/09) morphine (Unverified Adverse Reaction, Intermediate, "breathing problems", 05/01/20) Uncoded Allergies: [id number] (SULFA (SULFONAMIDE ANTIBIOTICS)) (Allergy, Mild, 06/16/09) Home Medications Cefdinir 300 Mg Capsule, 300 MG PO BID, (Reported) Patient Home Medication List Home Medication List Reviewed: Yes Review of Systems Review of Systems Constitutional: No fever EENTM: No Double Vision Respiratory: Denies Cough, Denies Shortness of Air Cardiovascular: Denies Chest Pain Gastrointestinal: Denies Abdominal Pain; Diarrhea, Nausea, Vomiting Genitourinary: Denies Frequency Musculoskeletal: No back pain Skin: No rash Psychiatric/Neurological: Denies Depressed Endocrine: No Symptoms Reported Hematologic/Lymphatic: No Symptoms Reported All Other Systems Reviewed Negative Unless Noted: Yes Past Wxraxpq-Lwrhct-Xitjxn Hx Patient Social History Tobacco Use?: Yes Immunizations Up To Date Tetanus Booster (TDap): Unknown Seasonal Allergies Seasonal Allergies: No Past Medical History Surgeries: Yes (BMT , CERCLAGE) Gallbladder Respiratory: No Currently Using CPAP: No Currently Using BIPAP: No Cardiac: No Neurological: No Reproductive Disorders: No Genitourinary: Yes Bladder Infection Gastrointestinal: Yes Gall Bladder Disease, Irritable Bowel Musculoskeletal: No Endocrine: No HEENT: No Cancer: No Psychosocial: No Integumentary: No Blood Disorders: No Physical Exam Vital Signs Capillary Refill : Height/Weight/BMI Height: 5'3.00" Weight: 162lbs. oz. 73.126432hq; 27.00 BMI Method:Stated General Appearance: WD/WN, no apparent distress HEENT: normal ENT inspection, pharynx normal Neck: non-tender, full range of motion, supple, normal inspection Respiratory: chest non-tender, lungs clear, normal breath sounds, no respiratory distress, no accessory muscle use Cardiovascular: regular rate, rhythm, no edema, no murmur Gastrointestinal: normal bowel sounds, non tender, soft; No distended (Gravid uterus), No guarding Extremities: normal range of motion, non-tender, normal inspection, no pedal edema Back: normal inspection, no CVA tenderness Pelvic: normal external exam Neurologic/Psychiatric: no motor/sensory deficits, alert, normal mood/affect Skin: normal color, warm/dry Lymphatic: no adenopathy Progress/Results/Core Measures Results/Orders Lab Results Laboratory Tests Test 02/05/21 21:50 Range/Units My Orders Orders - KATHERIN CRAIG MD Covid 19 Inhouse Test (02/05/21 21:39) Promethazine Tablet (Phenergan Tablet) (02/05/21 21:45) Medications Given in ED Current Medications Medications Dose Ordered Sig/Tony Route Start Time Stop Time Status Last Admin Dose Admin Promethazine HCl 25 mg ONCE ONCE PO 02/05/21 21:45 02/05/21 21:46 DC 02/05/21 21:58 25 MG Progress Progress Note : Progress Note 35-year-old female with above history coming in due to vomiting and diarrhea for the past 4 days. ABCs were intact vitals were stable on presentation. Overall she is very well-appearing no acute distress. Abdomen is soft and nontender. She is gravid but has no complaints regarding this. Her only concern is that she would like a Covid test and something for nausea. Test was ordered and sent out and she was given Phenergan for nausea. I believe she is stable for discharge. She was sent home with strict return precautions. Departure Impression Primary Impression: Person under investigation for COVID-19 Additional Impression: Disposition: HOME, SELF-CARE Condition: Stable Departure-Patient Inst. Decision time for Depature: 22:08 Referrals: WILLIAM LAROSE MD (PCP/Family) Primary Care Physician Patient Instructions: COVID-19 and Add. Discharge Instructions: You were seen in the emergency department for vomiting and diarrhea and concern for being exposed to Covid. The test was sent and will be available hopefully within the next couple days at our [place] location. Please take Phenergan for nausea and continue to isolate from people. If you have any concerns please come back to the emergency department. Scripts Promethazine HCl (Promethazine Tablet) 25 Mg Tablet 25 MG PO Q8H PRN for NAUSEA/VOMITING for 3 Days, #9 TAB 0 Refills Prov: KATHERIN CRAIG MD 02/05/21 KATHERIN CRAIG MD Feb 05, 2021 21:50
[2021-02-05] MEDS ORDERED: PROM25TA14 PO (22:08)
== END 2021-02-05 22:17 | disposition home or self-care (01) ==
LOC: EDUNIT# 21:17 → ER FS 21:19
DX: O21.0 Mild hyperemesis gravidarum (principal); Z20.822 Contact with and (suspected) exposure to COVID-19; Z3A.23 23 weeks gestation of pregnancy
CPT/HCPCS: 87636; 99283

== ENCOUNTER 2021-02-26 17:14 | Outpatient (CLI) | payer MEDICAID ==
[~2021-02-26 17:14] MED LIST changes: +PROM25TA14 PO
[2021-02-26 17:46] VITALS: BP 109/56
--- NOTE | 2021-02-27 09:55 | Physician Query-Final Dx ---
Clinic Account Progress/Dx Physician Query: Please give diagnosis Please include # weeks gestation Date of Service Feb 26, 2021 at 17:14 SANJEEV RUTH Feb 27, 2021 09:55
== END 2021-02-26 18:50 | disposition home or self-care (01) ==
LOC: WSo 17:14 → LDRP 17:18 → WSo 18:50
PROVIDERS: ATTEND Family Medicine
DX: Z34.90 Encounter for supervision of normal pregnancy, unspecified, unspecified trimester (principal); Z3A.00 Weeks of gestation of pregnancy not specified
CPT/HCPCS: 99212

== ENCOUNTER 2021-04-16 23:52 | Outpatient (CLI) | payer MEDICAID ==
[~2021-04-16] VITALS: Ht 160 cm; Wt 76.5 kg
[2021-04-17 00:14] VITALS: BP 119/60
[2021-04-17 00:34] LABS: BILIRUBIN,URINE NEGATIVE (NEGATIVE); CLARITY,URINE CLEAR; COLOR,URINE YELLOW; GLUCOSE, URINE (UA) NEGATIVE (NEGATIVE); KETONES,URINE TRACE (NEGATIVE); LEUKOCYTE ESTERASE ,URINE NEGATIVE (NEGATIVE); NITRITE,URINE NEGATIVE (NEGATIVE); PROTEIN,URINE NEGATIVE (NEGATIVE)
[2021-04-17 01:04] LABS: BACTERIA,URINE TRACE /HPF
[2021-04-17] MEDS ORDERED: ACET-2267 PO (01:11)
--- NOTE | 2021-04-17 08:33 | Physician Query-Final Dx ---
SANJEEV RUTH 04/17/21 0833: Clinic Account Progress/Dx Physician Query: Please give diagnosis Please include # weeks gestation Date of Service Apr 16, 2021 at 23:52 LÓPEZ HUERTAS MD 04/17/21 1629: Clinic Account Progress/Dx DIAGNOSIS: Diagnosis 33 weeks gestation Subjective contractions/cramping, no uterine activity on monitoring SANJEEV RUTH Apr 17, 2021 08:33 LÓPEZ HUERTAS MD Apr 17, 2021 16:29
== END 2021-04-17 01:25 ==
LOC: WSo 23:52 → LDRP 23:55 → WSo 04-17 01:25
PROVIDERS: ATTEND Family Medicine
DX: O62.9 Abnormality of forces of labor, unspecified (principal); Z3A.33 33 weeks gestation of pregnancy
CPT/HCPCS: 81000; G0463; 99213

== ENCOUNTER 2021-05-06 21:28 | Emergency (ER) | payer MEDICAID ==
[~2021-05-06] VITALS: Ht 160 cm; Wt 77.9 kg
[~2021-05-06 21:28] MED LIST changes: +ACET-2267 PO
[2021-05-06] MEDS ORDERED: ONDANSETRON 4 MG (ZOFRAN) ORAL DISSOLVE TAB SL STA (22:25)
[2021-05-06] MEDS ORDERED: FAMOTIDINE 20MG/2ML IV (PEPCID) IVP ONE (22:30)
[2021-05-06] MEDS ORDERED: FAMOTIDINE 20 MG (PEPCID) TABLET ONE (22:35)
[2021-05-06] MEDS ORDERED: ONDA4TAB11 SL (22:57)
[2021-05-06] MEDS ORDERED: FAMO-119 PO (22:57)
--- NOTE | 2021-05-06 22:57 | ED General ---
General Chief Complaint: Oral/Throat Problems Stated Complaint: SORE THROAT,CHEST BURNING,VOMITING Nursing Triage Note: Pt c/o sore throat with burning 2 months. Has been seen by PCP for symptoms. Pt is and due 06/04/21; , denies any symptoms. Source of Information: Patient Exam Limitations: No Limitations History of Present Illness Date Seen by Provider: May 06, 2021 Time Seen by Provider: 21:55 Initial Comments This 35-year-old young lady at 36 weeks gestational age presents to the emergency room with multiple complaints including cough, congestion, and sore throat. Additionally she complains of heartburn type symptoms with epigastric pain and burning in the chest for up to 2 months. She also complains of nausea and vomiting for the past couple of weeks. Allergies and Home Medications Allergies Coded Allergies: aspirin (Unverified Allergy, Mild, 04/27/09) cefaclor (Unverified Allergy, Mild, 04/27/09) Sulfa (Sulfonamide Antibiotics) (Verified Allergy, Unknown, 04/17/21) amoxicillin (Verified Allergy, Unknown, 10/30/09) morphine (Unverified Adverse Reaction, Intermediate, "breathing problems", 05/01/20) Patient Home Medication List Home Medication List Reviewed: Yes Acetaminophen (Tylenol Extra Strength) 500 Mg Tablet, 500 MG PO PRN, (Reported) Entered as Reported by: PATTI CAMPOS on 04/17/21 0111 Famotidine (Pepcid) 20 Mg Tablet, 20 MG PO BID Prescribed by: JORGE IRELAND on 05/06/212256 Ondansetron (Ondansetron Odt) 4 Mg Tab.rapdis, 4 MG SL Q4H PRN for NAUSEA/VOMITING Prescribed by: JORGE IRELAND on 05/06/212256 Review of Systems Review of Systems Constitutional: no symptoms reported EENTM: see HPI Respiratory: see HPI Cardiovascular: no symptoms reported Gastrointestinal: see HPI Genitourinary: no symptoms reported : Yes Expected Date of Delivery: Jun 04, 2021 Musculoskeletal: no symptoms reported Skin: no symptoms reported Psychiatric/Neurological: No Symptoms Reported Hematologic/Lymphatic: No Symptoms Reported Immunological/Allergic: no symptoms reported Past Keoqhjf-Vjcmmp-Jzskbd Hx Patient Social History Tobacco Use?: Yes Tobacco type used: Cigarettes Smoking Status: Current Everyday Smoker Use of E-Cig and/or Vaping dev: No Substance use?: No Alcohol Use?: No Pt feels they are or have been: No Immunizations Up To Date Tetanus Booster (TDap): Unknown First/Initial COVID19 Vaccinat: MAR 24 Second COVID19 Vaccination Henry: APR 23 Seasonal Allergies Seasonal Allergies: No Past Medical History Surgeries: Yes (BMT , CERCLAGE) Gallbladder Respiratory: No Currently Using CPAP: No Currently Using BIPAP: No Cardiac: No Neurological: No Expected Date of Delivery: Jun 04, 2021 Reproductive Disorders: No Genitourinary: Yes Bladder Infection Gastrointestinal: Yes Gall Bladder Disease, Irritable Bowel Musculoskeletal: No Endocrine: No HEENT: No Cancer: No Psychosocial: No Integumentary: No Blood Disorders: No Physical Exam Vital Signs Vital Signs - First Documented 05/06/21 21:40 Temp 36.2 Pulse 86 Resp 17 B/P (MAP) 95/59 (71) Pulse Ox 99 O2 Delivery Room Air Capillary Refill : Less Than 3 Seconds Height, Weight, BMI Height: 5'3.00" Weight: 162lbs. oz. 73.840130fm; 30.00 BMI Method:Stated General Appearance: No Apparent Distress, WD/WN HEENT: PERRL/EOMI, TMs Normal, Normal ENT Inspection, Pharynx Normal Neck: Normal Inspection, Supple; No Lymphadenopathy (L), No Lymphadenopathy (R) Respiratory: Lungs Clear, Normal Breath Sounds, No Accessory Muscle Use Cardiovascular: Regular Rate, Rhythm, No Edema, No Murmur Gastrointestinal: Normal Bowel Sounds, Soft, Tenderness (Epigastrium), Other (Appropriately gravid for gestational age) Extremity: Normal Inspection, No Pedal Edema Neurologic/Psychiatric: Alert, Oriented x3, No Motor/Sensory Deficits, Normal Mood/Affect Skin: Normal Color, Warm/Dry Progress/Results/Core Measures Suspected Sepsis SIRS Temperature: Pulse: 86 Respiratory Rate: 17 Blood Pressure 95 /59 Mean: 71 Results/Orders Lab Results Laboratory Tests Test 05/06/21 22:13 Range/Units Influenza Type A Antigen NEGATIVE NEGATIVE Influenza Type B Antigen NEGATIVE NEGATIVE SARS-CoV-2 RNA (RT-PCR) Not Detected Not Detecte Group A Streptococcus Screen NEGATIVE NEGATIVE My Orders Orders - JORGE VANG MD Influenza A & B Antigens (05/06/21 22:20) Rapid Strep A Screen (05/06/21 22:20) Ondansetron Oral Dissolve Tab (Zofran (05/06/21 22:25) Famotidine Injection (Pepcid Injection) (05/06/21 22:30) Famotidine Tablet (Pepcid Tablet) (05/06/21 22:35) Covid 19 Inhouse Test (05/06/21 22:41) Medications Given in ED Current Medications Medications Dose Ordered Sig/Tony Route Start Time Stop Time Status Last Admin Dose Admin Famotidine 20 mg STK-MED ONCE .ROUTE 05/06/21 22:35 05/06/21 22:38 DC 05/06/21 22:45 20 MG Vital Signs/I&O 05/06/21 05/06/21 21:40 23:24 Temp 36.2 36.2 Pulse 86 86 Resp 17 17 B/P (MAP) 95/59 (71) 95/59 Pulse Ox 99 99 O2 Delivery Room Air Room Air Capillary Refill : Less Than 3 Seconds Blood Pressure Mean: 71 Progress Note : Progress Note She was treated with Zofran and Pepcid. Prescriptions were provided. Swabs for influenza, COVID-19, and strep were all negative. See discharge instructions for further discussion. Departure Impression Primary Impression: Flu-like symptoms Additional Impressions: Nausea and vomiting Qualified Codes: R11.2 - Nausea with vomiting, unspecified Epigastric pain Qualified Codes: Z3A.36 - 36 weeks gestation of Disposition: 01 HOME, SELF-CARE Condition: Improved Departure-Patient Inst. Decision time for Depature: 22:54 Referrals: WILLIAM LAROSE MD (PCP) Primary Care Physician ATIF ACE APRN (Family) Primary Care Physician Patient Instructions: Acid Reflux (Gastroesophageal Reflux Disease) During , COVID-19 Tests Add. Discharge Instructions: Use the Zofran (ondansetron) as prescribed for nausea and vomiting. Use Pepcid twice daily for treatment of acid reflux and upper stomach pain. Yan mayo discuss the symptoms and medications with your obstetrical provider as well. Read the instructions attached to these discharge instructions. Avoid eating large meals or close to bedtime. Avoid foods that can aggravate acid reflux such as spicy foods, carbonation, alcohol, etc. Also work toward quitting smoking as rapidly as possible. You have a pending COVID-19 test. Please remain isolated at home until you are notified of the results of this test. You may use Tylenol (acetaminophen) up to 1000 mg every 6 hours as needed for pain or fever. Call with questions or concerns. Return to the ER if you have worsening symptoms. All discharge instructions reviewed with patient and/or family. Voiced understanding. Scripts Ondansetron (Ondansetron Odt) 4 Mg Tab.rapdis 4 MG SL Q4H PRN for NAUSEA/VOMITING, #10 TAB Prov: JORGE VANG MD 05/06/21 Famotidine (Pepcid) 20 Mg Tablet 20 MG PO BID, #60 TAB Prov: JORGE VANG MD 05/06/21 Copy Copies To 1: WILLIAM LAROSE MD, JOSHUA T MD May 06, 2021 22:57
[2021-05-06 23:24] VITALS: BP 95/59
== END 2021-05-06 23:27 | disposition home or self-care (01) ==
LOC: EDUNIT# 21:28 → ER FS 21:31
DX: O99.513 Diseases of the respiratory system complicating pregnancy, third trimester (principal); J11.1 Influenza due to unidentified influenza virus with other respiratory manifestations; R11.2 Nausea with vomiting, unspecified; R10.13 Epigastric pain; F17.210 Nicotine dependence, cigarettes, uncomplicated; Z3A.36 36 weeks gestation of pregnancy; Z20.822 Contact with and (suspected) exposure to COVID-19
CPT/HCPCS: 87430; 87636; 87804; 99283

== ENCOUNTER 2021-05-09 20:11 | Outpatient (CLI) | payer MEDICAID ==
[~2021-05-09] VITALS: Ht 160 cm; Wt 77.3 kg
[~2021-05-09 20:11] MED LIST changes: +FAMO-119 PO; +ONDA4TAB11 SL
[2021-05-09 21:00] VITALS: BP 112/67
[2021-05-09 21:21] VITALS: BP 0/0
[2021-05-09 23:18] LABS: CLARITY,URINE CLEAR; COLOR,URINE YELLOW; GLUCOSE, URINE (UA) NEGATIVE (NEGATIVE); KETONES,URINE TRACE (NEGATIVE); LEUKOCYTE ESTERASE ,URINE NEGATIVE (NEGATIVE); NITRITE,URINE NEGATIVE (NEGATIVE); PH,URINE 6.5 (5-9); PROTEIN,URINE 1+ (NEGATIVE)
[2021-05-09 23:26] LABS: BACTERIA,URINE FEW /HPF
[2021-05-09 23:28] LABS: BILIRUBIN,URINE NEGATIVE (NEGATIVE)
--- NOTE | 2021-05-11 08:33 | Physician Query-Final Dx ---
Clinic Account Progress/Dx Physician Query: Please give diagnosis Please include # weeks gestation Date of Service May 09, 2021 at 20:11 PATTI NOYOLA May 11, 2021 08:32
== END 2021-05-09 23:37 | disposition home or self-care (01) ==
LOC: WSo 20:11 → LDRP 20:29 → WSo 23:37
PROVIDERS: ATTEND Obstetrics & Gynecology
DX: O62.9 Abnormality of forces of labor, unspecified (principal); Z3A.00 Weeks of gestation of pregnancy not specified
CPT/HCPCS: 81000; 87088

== ENCOUNTER 2021-05-26 19:00 | Inpatient (IN) | payer MEDICAID ==
[~2021-05-26] VITALS: Ht 160 cm; Wt 79.7 kg
[2021-05-31] MEDS ORDERED: PNV11TAB5 PO ×2 (19:18)
[2021-05-31] MEDS ORDERED: MINERAL OIL CONCENTRATE 99.9% 15 ML UDC TOP PRN (19:30)
[2021-05-31 19:50] VITALS: BP 127/71
[2021-05-31 20:11] LABS: BASOPHILS % (AUTO) 0 % (0-10); EOSINOPHILS # (AUTO) 0.1 10^3/uL (0.0-0.3); EOSINOPHILS % (AUTO) 1 % (0-10); HEMATOCRIT 37 % (35-52); HEMOGLOBIN 12.2 g/dL (11.5-16.0); LYMPHOCYTES # (AUTO) 1.6 10^3/uL (1.0-4.0); LYMPHOCYTES % (AUTO) 15 % (12-44); MEAN CORPUSCULAR HEMOGLOBIN 30 pg (25-34); MEAN CORPUSCULAR HGB CONC 33 g/dL (32-36); MEAN CORPUSCULAR VOLUME 89 fL (80-99); MEAN PLATELET VOLUME 11.1 fL (9.0-12.2); MONOCYTES # (AUTO) 0.6 10^3/uL (0.0-1.0); MONOCYTES % (AUTO) 5 % (0-12); NEUTROPHILS # (AUTO) 8.4 10^3/uL (1.8-7.8); NEUTROPHILS % (AUTO) 79 % (42-75); PLATELET COUNT 199 10^3/uL (130-400); WHITE BLOOD COUNT 10.7 10^3/uL (4.3-11.0)
[2021-05-31] MEDS ORDERED: TERBUTALINE INJ 1 MG/ML (BRETHINE) AMP SC PRN (20:15)
[2021-05-31] MEDS ORDERED: ZOLPIDEM 5 MG (AMBIEN) TAB PO ONE (20:15)
[2021-05-31] MEDS ORDERED: LACTATED RINGERS 1,000 ML IV SCH (20:15)
[2021-05-31] MEDS ORDERED: BUTORPHANOL INJ 2 MG/ML (STADOL) VIAL IV ONE (20:15)
[2021-05-31] MEDS: D5 LR IV SOLUTION 1,000 ML IV SCH (20:38)
[2021-05-31] MEDS ORDERED: ACETAMINOPHEN 500 MG TAB (TYLENOL) ONE (20:59)
[2021-05-31] MEDS: ACETAMINOPHEN 500 MG TAB (TYLENOL) PO PRN (21:04)
[2021-05-31 21:45] VITALS: BP 120/64
[2021-05-31 22:25] VITALS: BP 125/72
[2021-05-31] MEDS: CATHETER FLUSH 10 ML SYR IV SCH (22:50)
[2021-05-31] MEDS ORDERED: ZOLPIDEM 5 MG (AMBIEN) TAB ONE (23:06)
[2021-05-31 23:25] VITALS: BP 126/73
[2021-06-01] VITALS (45 sets, daily range): BP systolic 112–156; BP diastolic 56–85
[2021-06-01] MEDS: D5 LR IV SOLUTION 1,000 ML IV SCH ×2 (05:16→13:21)
[2021-06-01] MEDS: ACETAMINOPHEN 500 MG TAB (TYLENOL) PO PRN (05:24)
[2021-06-01] MEDS: CATHETER FLUSH 10 ML SYR IV SCH (06:00)
[2021-06-01] MEDS ORDERED: OXYTOCIN PRE-MIX DRIP 500 ML IV SCH ×2 (08:15→15:30)
[2021-06-01] MEDS ORDERED: fentaNYL 2 mcg/ml BUPIVA 0.125 100 ML ONE (08:26)
[2021-06-01] MEDS ORDERED: fentaNYL INJ 100 MCG/2 ML AMP ONE (09:47)
--- NOTE | 2021-06-01 14:31 | History & Physical-OB ---
OB - Chief Complaint & HPI Date/Time Date of Admission: Date of Admission: May 31, 2021 at 19:10 Date seen by a Provider: Jun 01, 2021 Time Seen by a Provider: 14:20 Chief Complaint/History OB-Reason for Admission/Chief: Induction of Labor Hx : 5 Hx Para: 4 Expected Date of Delivery: Jun 04, 2021 Gestational Age in Weeks: 39 Gestational Age in Days: 3 Indication for induction: other (elective) History of Labs A+, Ab neg, Rub Imm HIV/RPR/HepB/C NR Normal 1hr GTT GBS neg Allergies and Home Medications Allergies Coded Allergies: aspirin (Unverified Allergy, Mild, 04/27/09) cefaclor (Unverified Allergy, Mild, 04/27/09) Sulfa (Sulfonamide Antibiotics) (Verified Allergy, Unknown, 04/17/21) amoxicillin (Verified Allergy, Unknown, 10/30/09) morphine (Unverified Adverse Reaction, Intermediate, "breathing problems", 05/01/20) Patient Home Medication List Home Medication List Reviewed: Yes Acetaminophen (Tylenol Extra Strength) 500 Mg Tablet, 500 MG PO PRN, (Reported) Entered as Reported by: PATTI CAMPOS on 04/17/21 0111 Last Action: Reviewed Famotidine (Pepcid) 20 Mg Tablet, 20 MG PO BID Prescribed by: JORGE IRELAND on 05/06/212256 Last Action: Reviewed Ondansetron (Ondansetron Odt) 4 Mg Tab.rapdis, 4 MG SL Q4H PRN for NAUSEA/VOMITING Prescribed by: JORGE IRELAND on 05/06/212256 Last Action: Reviewed Kzo954/FA/Omega3/Dha/Fish Oil ( Gummies) 1 Each Tab.chew, 1 EACH PO DAILY, (Reported) Entered as Reported by: ZACHERY BARROS on 05/31/211917 Last Action: New Order OB - History Hx of Present Care: Yes Ultrasounds: Normal mid trimester US Obstetrical Complications: None Medical Complications: None Information Induced Hypertension: No Maternal Gestational Diabetes: No Hemorrhage: No Obstetrical History Hx : 5 Hx Para: 4 Hx # Term Pregnancies: 3 Hx # Pregnancies: 1 Number of Living Children: 4 Hx Termination: No Hx Multiple Gestation: No Hx Stillbirth: No Hx Complication: Yes Hx Induced Hypertens: Yes Hx Maternal Gestational Diabet: No Delivery History Hx Dystocia: No Hx Large For Gestational Age I: No Hx Small for Gestational Age I: No Hx Section: No Hx Vaginal Delivery Post C-Sec: No Hx Blood Disorders: No Patient Past Medical History None Social History/Family History Alcohol Use: Denies Use 2nd Hand Smoke Exposure: No Immunizations Tetanus Booster (TDap): Less than 5yrs (03/30/21) Date of Influenza Vaccine: Apr 13, 2021 Rubella: immune RPR/VDRL: Negative GBS Status: Negative HBsAG: Negative OB - Admission Exam Physical Exam Vitals: Vital Signs 06/01/21 06/01/21 06/01/21 03:15 09:54 09:58 Temp 36.4 Pulse 80 Resp 18 B/P (MAP) 117/70 (86) Pulse Ox 97 O2 Delivery Room Air HEENT: NCAT Heart: Rhythm Normal Lungs: Clear Abdomen: Gravid Cervical Dilatation: 8cm Effacement: 100% Station: 0 Membranes: Intact Accelerations: Accelerations Present Decelerations: No Decelerations Short Term Variability: Present Long-Term Variability: Average (6-25) Contractions on Admission: < 5 Minutes Apart Intensity: Moderate Hinkle Scoring Tool (Modified) Dilation (cm): 3-4cm (2) Effacement (%): 51-79% (2) Descent/Station: -1,0 (2) Cervix Consistency: Medium(1) Cervix Position: Middle/Mid-Position (1) Add 1 point for: Each previous vaginal delivery (1) Hinkle Score: 9 Labs Laboratory Tests Test 05/31/21 19:50 Range/Units White Blood Count 10.7 4.3-11.0 10^3/uL Red Blood Count 4.09 3.80-5.11 10^6/uL Hemoglobin 12.2 11.5-16.0 g/dL Hematocrit 37 35-52 % Mean Corpuscular Volume 89 80-99 fL Mean Corpuscular Hemoglobin 30 25-34 pg Mean Corpuscular Hemoglobin Concent 33 32-36 g/dL Red Cell Distribution Width 13.6 10.0-14.5 % Platelet Count 199 130-400 10^3/uL Mean Platelet Volume 11.1 9.0-12.2 fL Immature Granulocyte % (Auto) 1 % Neutrophils (%) (Auto) 79 H 42-75 % Lymphocytes (%) (Auto) 15 12-44 % Monocytes (%) (Auto) 5 0-12 % Eosinophils (%) (Auto) 1 0-10 % Basophils (%) (Auto) 0 0-10 % Neutrophils # (Auto) 8.4 H 1.8-7.8 10^3/uL Lymphocytes # (Auto) 1.6 1.0-4.0 10^3/uL Monocytes # (Auto) 0.6 0.0-1.0 10^3/uL Eosinophils # (Auto) 0.1 0.0-0.3 10^3/uL Basophils # (Auto) 0.0 0.0-0.1 10^3/uL Immature Granulocyte # (Auto) 0.1 0.0-0.1 10^3/uL OB - Assessment/Plan/Diagnosis Assessment Assessment: active labor, induction of labor Admission Dx Third Trimester 39 week gestation Admission Status: Inpatient Order (span 2 midnights) Reason for Inpatient Admission: Labor Plan Other Plan 35 yo @ 39.4 wga here for IOL Plan - Pitocin protocol - GBS neg - AROM 1420 clear Copy Copies To 1: WILLIAM LAROSE MD, HOLLY R MD Jun 01, 2021 14:31
[2021-06-01] MEDS ORDERED: LIDOCAINE/EPI 2% 1:200,00 (XYLOCAINE) 10 ML VIAL ONE (14:32)
[2021-06-01] MEDS ORDERED: WITCH HAZEL(TUCKS) 40 EA JAR TOP PRN (15:30)
[2021-06-01] MEDS ORDERED: BENZOCAINE/MENTHOL (DERMOPLAST) 56 ML CAN TP PRN (15:30)
[2021-06-01] MEDS ORDERED: TETANUS,DIPTH,PERTUSS P/F (BOOSTRIX) 0.5 ML VIAL IM ONE (15:30)
--- NOTE | 2021-06-01 15:34 | OB Labor & Delivery Record ---
Vag Delivery Note Vag Delivery Note Date of Delivery: 06/01/21 Preoperative Diagnosis: Luanne Álvarez is a (35 /Para 5 / 4,Gestational Age (wks)39.4 wga here for elective IOL Postoperative Diagnosis: Same Surgeon: WILLIAM LAROSE MD Programming Coordinator: None Anesthesia: Epidural Delivery Type: @ 1502 Findings: Viable male , apgars 8/9, weight 6#5, 2850 grams Lacerations: 2nd degree perineal laceration, left labial laceration Intact placenta with 3 vessel cord. No nuchal cord, body cord or shoulder dystocia Estimated Blood Loss: 125 ml Complications: None Condition: Stable Description of Procedure: The patient is a 35 year old female who presented for IOL. She was admitted and informed consent was obtained. Her labor course was unremarkable. She progressed to complete dilatation and began to push. She was then set up for delivery. The infant's head was delivered atraumatically in the CRISTY position, nuchal cord x 2 reduced at the perinium after delivery of the head. The shoulders and remainder of the infant's body were then delivered without difficulty. Upon delivery, the head was held below the level of the perineum and the mouth and nares were bulb suctioned. The cord was doubly clamped and cut by FOB after 2 min delay and the was attended to by the pediatric staff on maternal abdomen. An intact placenta with 3-vessel cord delivered via Oswaldo and there was found to be minimal bleeding.~ Vigorous fundal massage was performed and the fundus was found to be firm. IV oxytocin was given. Examination of the vagina and perineum revealed a 2nd degree laceration and left labial laceration repaired in the usual fashion with 3-0 vicryl suture. Following the repair, sponge, instrument and needle counts were correct. Mom and baby were both in stable condition in the labor suite. Vitals - Labs Vital Signs - I&O Vital Signs Date Time Temp Pulse Resp B/P (MAP) Pulse Ox O2 Delivery O2 Flow Rate FiO2 06/01/21 09:58 80 18 117/70 (86) 06/01/21 09:54 68 18 119/63 (81) 97 06/01/21 09:51 69 18 114/64 (81) 06/01/21 09:48 66 18 122/70 (87) 99 06/01/21 09:45 84 18 113/79 (90) 97 06/01/21 09:42 72 18 112/67 (82) 97 06/01/21 09:38 65 18 134/67 (89) 98 06/01/21 09:33 67 18 146/78 (100) 99 06/01/21 09:28 60 18 142/77 (98) 98 06/01/21 08:23 66 18 123/78 (93) 06/01/21 03:15 36.4 60 20 121/59 (79) 98 Room Air 05/31/21 23:25 36.7 76 20 126/73 (90) 98 Room Air 05/31/21 22:25 58 20 125/72 (89) Room Air 05/31/21 21:45 36.6 63 20 120/64 (82) 98 Room Air 05/31/21 19:50 36.8 81 20 98 Room Air 05/31/21 19:50 36.8 81 20 127/71 (89) 98 Room Air I & O 06/01/21 07:00 Intake Total 2000 ml Balance 2000 ml Labs Laboratory Tests 05/31/21 19:50: White Blood Count 10.7, Red Blood Count 4.09, Hemoglobin 12.2, Hematocrit 37, Mean Corpuscular Volume 89, Mean Corpuscular Hemoglobin 30, Mean Corpuscular Hemoglobin Concent 33, Red Cell Distribution Width 13.6, Platelet Count 199, Mean Platelet Volume 11.1, Immature Granulocyte % (Auto) 1, Neutrophils (%) (Auto) 79H, Lymphocytes (%) (Auto) 15, Monocytes (%) (Auto) 5, Eosinophils (%) (Auto) 1, Basophils (%) (Auto) 0, Neutrophils # (Auto) 8.4H, Lymphocytes # (Auto) 1.6, Monocytes # (Auto) 0.6, Eosinophils # (Auto) 0.1, Basophils # (Auto) 0.0, Immature Granulocyte # (Auto) 0.1 WILLIAM LAROSE MD Jun 01, 2021 15:34
[2021-06-01] MEDS ORDERED: fentaNYL 2 mcg/ml BUPIVA 0.125 100 ML IV SCH (18:30)
[2021-06-01] MEDS ORDERED: LACTATED RINGERS 1,000 ML IV ONE (18:30)
[2021-06-01] MEDS: DOCUSATE SODIUM 100 MG (COLACE) CAP PO SCH (21:19)
[2021-06-01] MEDS: IBUPROFEN 600 MG (MOTRIN) TAB PO SCH (21:20)
[2021-06-01] MEDS: ACETAMINOPHEN 500 MG TAB (TYLENOL) PO SCH (21:20)
[2021-06-02 01:01] VITALS: BP 120/72
[2021-06-02] MEDS: ACETAMINOPHEN 500 MG TAB (TYLENOL) PO SCH ×3 (03:00→16:51)
[2021-06-02] MEDS: IBUPROFEN 600 MG (MOTRIN) TAB PO SCH ×3 (03:00→16:50)
[2021-06-02 03:05] VITALS: BP 135/73
[2021-06-02] MEDS: CATHETER FLUSH 10 ML SYR IV SCH ×2 (05:24→06:20)
[2021-06-02 05:47] LABS: BASOPHILS % (AUTO) 0 % (0-10); EOSINOPHILS # (AUTO) 0.1 10^3/uL (0.0-0.3); EOSINOPHILS % (AUTO) 1 % (0-10); HEMATOCRIT 31 % (35-52); HEMOGLOBIN 10.5 g/dL (11.5-16.0); LYMPHOCYTES # (AUTO) 2.2 10^3/uL (1.0-4.0); LYMPHOCYTES % (AUTO) 20 % (12-44); MEAN CORPUSCULAR HEMOGLOBIN 30 pg (25-34); MEAN CORPUSCULAR HGB CONC 34 g/dL (32-36); MEAN CORPUSCULAR VOLUME 89 fL (80-99); MEAN PLATELET VOLUME 10.7 fL (9.0-12.2); MONOCYTES # (AUTO) 0.5 10^3/uL (0.0-1.0); MONOCYTES % (AUTO) 5 % (0-12); NEUTROPHILS # (AUTO) 8.1 10^3/uL (1.8-7.8); NEUTROPHILS % (AUTO) 74 % (42-75); PLATELET COUNT 163 10^3/uL (130-400); WHITE BLOOD COUNT 11.1 10^3/uL (4.3-11.0)
[2021-06-02] MEDS ORDERED: PRENATAL VITAMIN 1 EA TAB PO SCH (07:00)
--- NOTE | 2021-06-02 07:38 | Discharge Summary ---
Diagnosis/Chief Complaint Date of Admission May 31, 2021 at 19:10 Date of Discharge June 02, 2021 Admission Diagnosis Admission Diagnosis 1. Intrauterine at 39 weeks gestation Discharge Diagnosis 1. Intrauterine at 39 weeks gestation Chief Complaint/HPI Chief Complaint/HPI 35-year-old 5 now term 5 who initially presented to labor and delivery during the evening of May 31, 2021 for elective induction. Her due date was noted to be June 04, 2021. Discharge Summary-OBS Procedures 1. Epidural per anesthesia 2. Spontaneous vaginal deliveryDr. Gault 3. Repair of second-degree perineal laceration and labial laceration leftDr. Gault Discharge Physical Examination Allergies: Coded Allergies: aspirin (Unverified Allergy, Mild, 04/27/09) cefaclor (Unverified Allergy, Mild, 04/27/09) Sulfa (Sulfonamide Antibiotics) (Verified Allergy, Unknown, 04/17/21) amoxicillin (Verified Allergy, Unknown, 10/30/09) morphine (Unverified Adverse Reaction, Intermediate, "breathing problems", 05/01/20) Vitals & I&Os Intake and Output 06/02/21 00:00 Intake Total 2000 ml Balance 2000 ml Vital Sign - Last 12Hours Date Time Temp Pulse Resp B/P (MAP) Pulse Ox O2 Delivery O2 Flow Rate FiO2 06/02/21 03:05 36.2 73 18 135/73 (93) 98 Room Air General Appearance: No Acute Distress Respiratory: Clear to Auscultation Cardiovascular: Regular Rate Abdominal: Normal Bowel Sounds, Soft (with uterus firm) Hospital Course Was the Problem List Reviewed?: Yes patient was admitted during the evening of May 31, 2021 and underwent Cytotec induction. Patient tolerated well. She developed a contraction pattern also requiring Pitocin augmentation. During the course of labor she did receive epidural and tolerated well. Ultimately she went on to completion and delivered over a second-degree perineal laceration and left labial laceration a term viable male. Delivery was accomplished on June 01, 2021 at 1502. received Apgars of 8 at 1 minute and 9 at 5 minutes. Infant weight 6 lbs. 5 oz. Following delivery she underwent routine care orders. She had no complications during the remainder of hospital stay. She had hemoglobin in the morning of June 02 which was 10.5 compared to admission of 12.2. She was eager for dismissal during the afternoon of June 02 and was released after 24 hour stay. She will follow-up with Dr. Caldwell in 6 weeks. Labs Laboratory Tests 06/02/21 05:35: White Blood Count 11.1H, Red Blood Count 3.50L, Hemoglobin 10.5L, Hematocrit 31L , Mean Corpuscular Volume 89, Mean Corpuscular Hemoglobin 30, Mean Corpuscular Hemoglobin Concent 34, Red Cell Distribution Width 13.7, Platelet Count 163, Mean Platelet Volume 10.7, Immature Granulocyte % (Auto) 1, Neutrophils (%) (Auto) 74, Lymphocytes (%) (Auto) 20, Monocytes (%) (Auto) 5, Eosinophils (%) (Auto) 1, Basophils (%) (Auto) 0, Neutrophils # (Auto) 8.1H, Lymphocytes # (Auto) 2.2, Monocytes # (Auto) 0.5, Eosinophils # (Auto) 0.1, Basophils # (Auto) 0.0, Immature Granulocyte # (Auto) 0.1 Discharge Instructions to patient/family Please see electronic discharge instructions given to patient. Discharge Medications Reviewed and agree with Discharge Medication list on patient's Discharge Instruction sheet DRE MONTERO MD Jun 02, 2021 07:38
--- NOTE | 2021-06-02 07:41 | Discharge Inst-Women's Service ---
Discharge Inst-Women's Serv Depart Medication/Instructions New, Converted or Re-Newed RX: Other Instructions May take ibuprofen [id number] 200 mg (2-3) tablets every 6 hours if needed for cramps or pain. Problems Reviewed?: Yes Consults/Follow Up Additional Follow Up: Yes (with Dr. Caldwell in 6 weeks) Activity Activity: Activity as Tolerated Driving Instructions: No Driving for 1 Week Nothing Inside Vagina: No [place] (for 6 weeks) Diet Discharge Diet: Regular Diet Return to The Hospital For: as below Symptoms to Report to : Bleeding Excessive, Fever Over 101 Degrees F, Vaginal Discharge Foul For Any Problems or Questions: Contact Your Physician DRE MONTERO MD Jun 02, 2021 07:41
[2021-06-02 09:12] VITALS: BP 125/62
[2021-06-02] MEDS: DOCUSATE SODIUM 100 MG (COLACE) CAP PO SCH (09:15)
[2021-06-02 13:50] VITALS: BP 142/64
--- NOTE | 2021-06-03 09:02 | Anesthesia-Regional Post-Op ---
Regional Patient Condition Mental Status: Alert, Oriented x3 Circulation: Same as Pre-Op Headache: Absent Sensation: Full Recovery Motor Block: Absent Post Op Complications Complications None Follow Up Care/Instructions Patient Instructions None needed. Anesthesia/Patient Condition Patient is doing well, no complaints, stable vital signs, no apparent adverse anesthesia problems. No complications reported per nursing. GREER SOLOMON CRNA Jun 03, 2021 09:02
== END 2021-06-02 17:30 | disposition home or self-care (01) | DRG 807 ==
LOC: LDRP 05-31 19:10
PROVIDERS: ADMIT Family Medicine; ATTEND Family Medicine
PROC: 3E0DXGC Introduction of Other Therapeutic Substance into Mouth and Pharynx, External Approach (ICD-10-PCS; 2021-05-31)
PROC: 10E0XZZ Delivery of Products of Conception, External Approach (ICD-10-PCS; principal; 2021-06-01)
PROC: 0KQM0ZZ Repair Perineum Muscle, Open Approach (ICD-10-PCS; 2021-06-01)
PROC: 0UQMXZZ Repair Vulva, External Approach (ICD-10-PCS; 2021-06-01)
DX: O70.1 Second degree perineal laceration during delivery (principal); Z37.0 Single live birth; Z3A.39 39 weeks gestation of pregnancy; O69.81X0 Labor and delivery complicated by cord around neck, without compression, not applicable or unspecified; Z88.1 Allergy status to other antibiotic agents; Z88.2 Allergy status to sulfonamides; Z88.5 Allergy status to narcotic agent
CPT/HCPCS: 36415; 85025; 86850; 86900; 86901

== ENCOUNTER 2021-05-30 22:45 | Emergency (ER) | payer MEDICAID ==
[~2021-05-30] VITALS: Ht 160 cm; Wt 83.0 kg
--- NOTE | 2021-05-30 23:03 | ED General ---
General Chief Complaint: Chest Wall Stated Complaint: SOB/CHEST PAIN Nursing Triage Note: Pt here with chest wall pain and cough. States she's had a cough x 1 month but it's worse x 2 days. States she's being induced in the morning at [place]. Chest pain is worse with palpation. History of Present Illness Date Seen by Provider: May 30, 2021 Time Seen by Provider: 22:50 Initial Comments 35-year-old female presents with chest wall pain and cough, sore throat. Patient reports that she has had a cough for at least a month but feels like is been worse over the last couple days. She is got chest wall pain when she coughs. That her son was diagnosed with strep a week ago and is concerned that maybe she has strep. Patient reports that she is a at 39 weeks and has been induced in the morning at [facility]. No reports of fever or chills. Allergies and Home Medications Allergies Coded Allergies: aspirin (Unverified Allergy, Mild, 04/27/09) cefaclor (Unverified Allergy, Mild, 04/27/09) Sulfa (Sulfonamide Antibiotics) (Verified Allergy, Unknown, 04/17/21) amoxicillin (Verified Allergy, Unknown, 10/30/09) morphine (Unverified Adverse Reaction, Intermediate, "breathing problems", 05/01/20) Patient Home Medication List Home Medication List Reviewed: Yes Acetaminophen (Tylenol Extra Strength) 500 Mg Tablet, 500 MG PO PRN, (Reported) Entered as Reported by: PATTI CAMPOS on 04/17/21 0111 Famotidine (Pepcid) 20 Mg Tablet, 20 MG PO BID Prescribed by: JORGE IRELAND on 05/06/212256 Ondansetron (Ondansetron Odt) 4 Mg Tab.rapdis, 4 MG SL Q4H PRN for NAUSEA/VOMITING Prescribed by: JORGE IRELAND on 05/06/212256 Review of Systems Review of Systems Constitutional: No chills, No fever EENTM: throat pain Respiratory: see HPI, cough, short of breath Cardiovascular: see HPI Gastrointestinal: see HPI Genitourinary: see HPI Expected Date of Delivery: Jun 04, 2021 Musculoskeletal: no symptoms reported Skin: no symptoms reported Psychiatric/Neurological: No Symptoms Reported Hematologic/Lymphatic: No Symptoms Reported Immunological/Allergic: no symptoms reported Past Hxmdaux-Zhgzle-Bysffn Hx Patient Social History Tobacco Use?: Yes Tobacco type used: Cigarettes Smoking Status: Current Everyday Smoker Substance use?: No Alcohol Use?: No Pt feels they are or have been: No Immunizations Up To Date Tetanus Booster (TDap): Unknown First/Initial COVID19 Vaccinat: MAR 24 Second COVID19 Vaccination Henry: APR 23 Third COVID19 Vaccination Date: MAR 24 Seasonal Allergies Seasonal Allergies: No Past Medical History Surgeries: Yes (BMT , CERCLAGE) Gallbladder Respiratory: No Currently Using CPAP: No Currently Using BIPAP: No Cardiac: No Neurological: No Expected Date of Delivery: Jun 04, 2021 Reproductive Disorders: No Genitourinary: Yes Bladder Infection Gastrointestinal: Yes Gall Bladder Disease, Irritable Bowel Musculoskeletal: No Endocrine: No HEENT: No Cancer: No Psychosocial: No Integumentary: No Blood Disorders: No Physical Exam Vital Signs Vital Signs - First Documented 05/30/21 22:54 Temp 36.0 Pulse 82 Resp 18 B/P (MAP) 127/79 (95) Pulse Ox 98 O2 Delivery Room Air Capillary Refill : Less Than 3 Seconds Height, Weight, BMI Height: 5'3.00" Weight: 162lbs. oz. 73.617247xp; 32.00 BMI Method:Stated General Appearance: Other (Gravid appearing) HEENT: Normal ENT Inspection, Moist Mucous Membranes Neck: Non Tender, Supple Respiratory: Lungs Clear, Normal Breath Sounds, Other (Chest wall tenderness that is reproducible with palpation) Cardiovascular: Regular Rate, Rhythm, No Edema Back: Normal Inspection Extremity: Normal Capillary Refill, Normal Inspection Neurologic/Psychiatric: Alert, Oriented x3, No Motor/Sensory Deficits Skin: Normal Color, Warm/Dry Progress/Results/Core Measures Suspected Sepsis SIRS Temperature: Pulse: 82 Respiratory Rate: 18 Laboratory Tests 05/30/21 23:08: White Blood Count 8.7 Blood Pressure 127 /79 Mean: 95 Laboratory Tests 05/30/21 23:08: Creatinine 0.65, Platelet Count 189, Total Bilirubin 0.3 Results/Orders Lab Results Laboratory Tests Test 05/30/21 23:08 05/30/21 23:10 Range/Units White Blood Count 8.7 4.3-11.0 10^3/uL Red Blood Count 4.09 3.80-5.11 10^6/uL Hemoglobin 12.0 11.5-16.0 g/dL Hematocrit 36 35-52 % Mean Corpuscular Volume 89 80-99 fL Mean Corpuscular Hemoglobin 29 25-34 pg Mean Corpuscular Hemoglobin Concent 33 32-36 g/dL Red Cell Distribution Width 13.6 10.0-14.5 % Platelet Count 189 130-400 10^3/uL Mean Platelet Volume 10.9 9.0-12.2 fL Immature Granulocyte % (Auto) 1 % Neutrophils (%) (Auto) 73 42-75 % Lymphocytes (%) (Auto) 19 12-44 % Monocytes (%) (Auto) 6 0-12 % Eosinophils (%) (Auto) 1 0-10 % Basophils (%) (Auto) 0 0-10 % Neutrophils # (Auto) 6.4 1.8-7.8 X 10^3 Lymphocytes # (Auto) 1.7 1.0-4.0 X 10^3 Monocytes # (Auto) 0.5 0.0-1.0 X 10^3 Eosinophils # (Auto) 0.1 0.0-0.3 10^3/uL Basophils # (Auto) 0.0 0.0-0.1 10^3/uL Immature Granulocyte # (Auto) 0.0 0.0-0.1 10^3/uL Sodium Level 135 135-145 MMOL/L Potassium Level 3.5 L 3.6-5.0 MMOL/L Chloride Level 102 98-107 MMOL/L Carbon Dioxide Level 19 L 21-32 MMOL/L Anion Gap 14 5-14 MMOL/L Blood Urea Nitrogen 6 L 7-18 MG/DL Creatinine 0.65 0.60-1.30 MG/DL Estimat Glomerular Filtration Rate 104 BUN/Creatinine Ratio 9 Glucose Level 106 H 70-105 MG/DL Calcium Level 8.8 8.5-10.1 MG/DL Corrected Calcium 9.4 8.5-10.1 MG/DL Total Bilirubin 0.3 0.1-1.0 MG/DL Aspartate Amino Transf (AST/SGOT) 10 5-34 U/L Alanine Aminotransferase (ALT/SGPT) 7 0-55 U/L Alkaline Phosphatase 199 H 40-136 U/L Troponin I < 0.30 <0.30 NG/ML Total Protein 6.4 6.4-8.2 GM/DL Albumin 3.2 3.2-4.5 GM/DL Group A Streptococcus Screen NEGATIVE NEGATIVE My Orders Orders - ARTEMIO MEYER Josh DO Cbc With Automated Diff (05/30/21 23:03) Comprehensive Metabolic Panel (05/30/21 23:03) Rapid Strep A Screen (05/30/21 23:03) Troponin I Fs (05/30/21 23:03) Ekg Tracing (05/30/21 23:03) Vital Signs/I&O 05/30/21 05/30/21 22:54 23:22 Temp 36.0 Pulse 82 71 Resp 18 18 B/P (MAP) 127/79 (95) 127/68 Pulse Ox 98 98 O2 Delivery Room Air Room Air Capillary Refill : Less Than 3 Seconds Blood Pressure Mean: 95 Progress Note : Progress Note Patient declined x-ray. Patient with a negative EKG. Patient with no elevated white count. Patient symptoms likely a result of esophageal reflux. Patient's cough has been going on for at least a month. Patient negative for strep and sore throat likely noninfectious. Patient stable. Patient will be discharged home and I recommend she discuss with her valve grinder tomorrow when she presents to [facility] for further testing that they feel is warranted ECG Initial ECG Impression Date: May 30, 2021 Initial ECG Impression Time: 22:46 Initial ECG Rate: 78 Initial ECG Rhythm: Normal Sinus Initial ECG Intervals: Normal Initial ECG Impression: Normal Departure Impression Primary Impression: 39 weeks gestation of Additional Impressions: Chest wall pain Cough Esophageal reflux Qualified Codes: K21.9 - Gastro-esophageal reflux disease without esophagitis Disposition: HOME, SELF-CARE Condition: Stable Departure-Patient Inst. Referrals: WILLIAM LAROSE MD (PCP) Primary Care Physician ATIF ACE APRN (Family) Primary Care Physician Patient Instructions: Cough, Adult (DC), Acid Reflux, Adult and Adolescent ED Add. Discharge Instructions: Please make your valve grinder aware of your symptoms tomorrow morning so they ma y give you some treatment options All discharge instructions reviewed with patient and/or family. Voiced understanding. ARTEMIO MEYER DO May 30, 2021 23:03
[2021-05-30 23:15] LABS: BASOPHILS % (AUTO) 0 % (0-10); EOSINOPHILS # (AUTO) 0.1 10^3/uL (0.0-0.3); EOSINOPHILS % (AUTO) 1 % (0-10); HEMATOCRIT 36 % (35-52); LYMPHOCYTES # (AUTO) 1.7 X 10^3 (1.0-4.0); LYMPHOCYTES % (AUTO) 19 % (12-44); MEAN CORPUSCULAR HEMOGLOBIN 29 pg (25-34); MEAN CORPUSCULAR HGB CONC 33 g/dL (32-36); MEAN CORPUSCULAR VOLUME 89 fL (80-99); MEAN PLATELET VOLUME 10.9 fL (9.0-12.2); MONOCYTES # (AUTO) 0.5 X 10^3 (0.0-1.0); MONOCYTES % (AUTO) 6 % (0-12); NEUTROPHILS # (AUTO) 6.4 X 10^3 (1.8-7.8); NEUTROPHILS % (AUTO) 73 % (42-75); PLATELET COUNT 189 10^3/uL (130-400); WHITE BLOOD COUNT 8.7 10^3/uL (4.3-11.0)
[2021-05-30 23:33] LABS: BILIRUBIN,TOTAL 0.3 MG/DL (0.1-1.0); BUN/CREATININE RATIO 9; CALCIUM 8.8 MG/DL (8.5-10.1); CARBON DIOXIDE 19 MMOL/L (21-32); CHLORIDE 102 MMOL/L (98-107); CREATININE SERUM 0.65 MG/DL (0.60-1.30); GFR ESTIMATED 104; GLUCOSE 106 MG/DL (70-105); POTASSIUM 3.5 MMOL/L (3.6-5.0); SODIUM 135 MMOL/L (135-145)
[2021-05-30 23:34] LABS: ALANINE AMINOTRANSFERASE 7 U/L (0-55); ALBUMIN 3.2 GM/DL (3.2-4.5); ALKALINE PHOSPHATASE 199 U/L (40-136); TOTAL PROTEIN 6.4 GM/DL (6.4-8.2)
[2021-05-30 23:55] VITALS: BP 119/63
[2021-05-31] MEDS ORDERED: PNV11TAB5 PO ×2 (19:18)
== END 2021-05-30 23:55 | disposition home or self-care (01) ==
LOC: EDUNIT# 22:45 → ER FS 22:48
DX: O99.413 Diseases of the circulatory system complicating pregnancy, third trimester (principal); R07.89 Other chest pain; R05.9 Cough, unspecified; K21.9 Gastro-esophageal reflux disease without esophagitis; F17.210 Nicotine dependence, cigarettes, uncomplicated; Z3A.39 39 weeks gestation of pregnancy
CPT/HCPCS: 36415; 80053; 84484; 85025; 87430; 93005

== ENCOUNTER 2021-06-19 21:01 | Emergency (ER) | payer MEDICAID ==
[~2021-06-19] VITALS: Ht 160 cm; Wt 73.0 kg
[~2021-06-19 21:01] MED LIST changes: +PNV11TAB5 PO
--- NOTE | 2021-06-19 21:42 | ED General ---
General Chief Complaint: General Problems/Pain Stated Complaint: F/N/D Nursing Triage Note: Mother states that she has been having abdominal pain and cramping. Patient is 18 days post . Patient states she hasn't been feeling good and wants to get checked out. Source of Information: Patient History of Present Illness Date Seen by Provider: Jun 19, 2021 Time Seen by Provider: 21:10 Initial Comments 35-year-old female presenting with complaints of abdominal burning sensation and cramping. She has been having looser stools as well as nausea. She states that she was not feeling good and was wanting to be evaluated and checked out. She was concerned about Covid infection. She has a 18-day-old child and he has been having some nasal congestion and looser stools. She was concerned that if he had Covid then she may be had given it to him. She also checked and 2 of her other children so that all 4 of them could be evaluated tonight for these symptoms that have been going on for over a week. She denies any fever, chills, significant cough, definite ill contact (other than from her own children). She has had the [employer] Covid Vaccine. Timing/Duration: 5-6 Days Severity: Moderate Associated Systoms: Chest Pain (upper back/chest pain from coughing), Cough; No Diaphoresis, No Fever/Chills, No Headaches, No Loss of Appetite; Malaise, Nausea/Vomiting (nausea but no vomiting); No Rash, No Seizure, No Shortness of Air, No Syncope, No Weakness Allergies and Home Medications Allergies Coded Allergies: aspirin (Unverified Allergy, Mild, 04/27/09) cefaclor (Unverified Allergy, Mild, 04/27/09) Sulfa (Sulfonamide Antibiotics) (Verified Allergy, Unknown, 04/17/21) amoxicillin (Verified Allergy, Unknown, 10/30/09) morphine (Unverified Adverse Reaction, Intermediate, "breathing problems", 05/01/20) Patient Home Medication List Home Medication List Reviewed: Yes Acetaminophen (Tylenol Extra Strength) 500 Mg Tablet, 500 MG PO PRN, (Reported) Entered as Reported by: PATTI CAMPOS on 04/17/21 0111 Dicyclomine HCl (Dicyclomine HCl) 10 Mg Capsule, 10 MG PO Q6H PRN for abdominal pain/cramping Prescribed by: BABS LINDO on 06/19/212239 Famotidine (Pepcid) 20 Mg Tablet, 20 MG PO BID Prescribed by: JORGE IRELAND on 05/06/212256 Ondansetron (Ondansetron Odt) 4 Mg Tab.rapdis, 4 MG PO Q6H PRN for NAUSE A/VOMITING Prescribed by: BABS LINDO on 06/19/212239 Psc624/FA/Omega3/Dha/Fish Oil ( Gummies) 1 Each Tab.chew, 1 EACH PO DAILY, (Reported) Entered as Reported by: ZACHERY BARROS on 05/31/211917 Review of Systems Review of Systems Constitutional: see HPI EENTM: No ear pain, No blurred vision, No epistaxis, No nose congestion Respiratory: cough; No hemoptysis, No short of breath, No stridor, No wheezing Cardiovascular: No chest pain Gastrointestinal: see HPI Genitourinary: No decreased output, No dysuria, No frequency Musculoskeletal: back pain (posterior chest pain from coughing) Skin: No rash Psychiatric/Neurological: Anxiety; Denies Headache, Denies Numbness, Denies Paresthesia Hematologic/Lymphatic: Denies Blood Clots Past Wvwkmit-Ckrtcj-Vxizpq Hx Patient Social History Tobacco Use?: No Substance use?: No Alcohol Use?: No Pt feels they are or have been: No Immunizations Up To Date Tetanus Booster (TDap): Less than 5yrs First/Initial COVID19 Vaccinat: Mar COVID19 Vaccination Henry: April COVID19 Vaccination Date: MAR 24 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[employer] Seasonal Allergies Seasonal Allergies: No Past Medical History Surgery/Hospitalization HX: 18 days post Surgeries: Yes (BMT , CERCLAGE) Gallbladder Respiratory: No Currently Using CPAP: No Currently Using BIPAP: No Cardiac: No Neurological: No Reproductive Disorders: No Genitourinary: Yes Bladder Infection Gastrointestinal: Yes Gall Bladder Disease, Irritable Bowel Musculoskeletal: No Endocrine: No HEENT: No Cancer: No Psychosocial: No Integumentary: No Blood Disorders: No Physical Exam Vital Signs Vital Signs - First Documented 06/19/21 21:25 Temp 36.4 Pulse 120 Resp 14 B/P (MAP) 124/79 (94) Pulse Ox 98 O2 Delivery Room Air Capillary Refill : Less Than 3 Seconds Height, Weight, BMI Height: 5'3.00" Weight: 162lbs. oz. 73.986003bd; 28.00 BMI Method:Stated General Appearance: No Apparent Distress, WD/WN HEENT: PERRL/EOMI, TMs Normal, Normal ENT Inspection, Pharynx Normal Neck: Full Range of Motion, Normal Inspection, Non Tender Respiratory: Chest Non Tender, Lungs Clear, Normal Breath Sounds, No Accessory Muscle Use, No Respiratory Distress Cardiovascular: Normal Peripheral Pulses, Tachycardia Gastrointestinal: Normal Bowel Sounds, No Pulsatile Mass, Non Tender, Soft Rectal: Deferred Back: No CVA Tenderness, No Vertebral Tenderness Extremity: Normal Capillary Refill, Normal Inspection, No Pedal Edema Neurologic/Psychiatric: Alert, Oriented x3, Normal Mood/Affect, 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 Skin: Normal Color, Warm/Dry; No Mottled, No Rash Progress/Results/Core Measures Suspected Sepsis SIRS Temperature: Pulse: 120 Respiratory Rate: 14 Blood Pressure 124 /79 Mean: 94 Results/Orders Lab Results Laboratory Tests Test 06/19/21 21:40 06/19/21 21:42 Range/Units Influenza Type A Antigen NEGATIVE NEGATIVE Influenza Type B Antigen NEGATIVE NEGATIVE SARS-CoV-2 RNA (RT-PCR) Not Detected Not Detecte Urine Color DARK YELLOW Urine Clarity CLEAR Urine pH 6.0 5-9 Urine Specific [place] 1.015 L 1.016-1.022 Urine Protein NEGATIVE NEGATIVE Urine Glucose (UA) NEGATIVE NEGATIVE Urine Ketones NEGATIVE NEGATIVE Urine Nitrite NEGATIVE NEGATIVE Urine Bilirubin NEGATIVE NEGATIVE Urine Urobilinogen 0.2 < = 1.0 MG/DL Urine Leukocyte Esterase NEGATIVE NEGATIVE Urine RBC (Auto) 1+ H NEGATIVE Urine RBC 2-5 H /HPF Urine WBC 0-2 /HPF Urine Squamous Epithelial Cells 10-25 H /HPF Urine Crystals NONE /LPF Urine Bacteria FEW H /HPF Urine Casts PRESENT /LPF Urine Hyaline Casts 0-2 H /LPF Urine Mucus SMALL H /LPF Urine Yeast FEW H /HPF Urine Culture Indicated NO My Orders Orders - BABS LINDO MD Ua Culture If Indicated (06/19/21 21:34) Covid 19 Inhouse Test (06/19/21 21:34) Influenza A & B Antigens (06/19/21 21:34) Vital Signs/I&O 06/19/21 06/19/21 21:25 22:52 Temp 36.4 Pulse 120 102 Resp 14 14 B/P (MAP) 124/79 (94) 124/79 Pulse Ox 98 98 O2 Delivery Room Air Room Air Capillary Refill : Less Than 3 Seconds Blood Pressure Mean: 94 Progress Note #1: Progress Note Patient was requesting Covid testing. Counseled that it would take at least 12 to 24 hours for results. She still would like to go forward with the testing. We will also obtain influenza swab and urinalysis. Counseled that treatment of nausea and abdominal cramping can be done. Progress Note #2: Progress Note Urinalysis does not show acute significant abnormality. Her influenza swab was negative. Advised patient that the Covid swab would be done later today. In the meantime self isolate and quarantine until results are back. Push fluids and rest. Treat with Zofran and dicyclomine for nausea and abdominal cramping and pain. Push fluids and check back through the clinic for continued concerns. If worsening symptoms seek medical care or return to ED for further evaluation 0406 Covid test did come back negative for patient. Continue with plan as above Departure Impression Primary Impression: Gastroenteritis Additional Impression: Acute viral syndrome Disposition: 01 HOME, SELF-CARE Condition: Stable Departure-Patient Inst. Decision time for Depature: 22:37 Referrals: WILLIAM LAROSE MD (PCP) Primary Care Physician ATIF ACE APRN (Family) Primary Care Physician Patient Instructions: Viral Gastroenteritis, Adult (DC), Viral Syndrome (DC) Add. Discharge Instructions: Fracture that is stable hydrated. Use the medicine for nausea to help settle your stomach. Use the Bentyl or dicyclomine to help with burning and cramping pain in your abdomen. If not improving certainly try checking with the clinic for continued symptoms All discharge instructions reviewed with patient and/or family. Voiced understanding. Scripts Ondansetron (Ondansetron Odt) 4 Mg Tab.rapdis 4 MG PO Q6H PRN for NAUSEA/VOMITING for 5 Days, #20 TAB 0 Refills Prov: BABS LINDO MD 06/19/21 Dicyclomine HCl (Dicyclomine HCl) 10 Mg Capsule 10 MG PO Q6H PRN for abdominal pain/cramping for 7 Days, #28 CAP 0 Refills Prov: BABS LINDO MD 06/19/21 BABS LINDO MD Jun 19, 2021 21:41
[2021-06-19 22:01] LABS: BACTERIA,URINE FEW /HPF; BILIRUBIN,URINE NEGATIVE (NEGATIVE); CLARITY,URINE CLEAR; COLOR,URINE DARK YELLOW; GLUCOSE, URINE (UA) NEGATIVE (NEGATIVE); HYALINE CASTS, URINE 0-2 /LPF; KETONES,URINE NEGATIVE (NEGATIVE); LEUKOCYTE ESTERASE ,URINE NEGATIVE (NEGATIVE); NITRITE,URINE NEGATIVE (NEGATIVE); PROTEIN,URINE NEGATIVE (NEGATIVE); WBC,URINE 0-2 /HPF
[2021-06-19 22:02] LABS: YEAST,URINE FEW /HPF
[2021-06-19] MEDS ORDERED: ONDA4TAB11 PO (22:40)
[2021-06-19] MEDS ORDERED: DICY10CA12 PO (22:40)
[2021-06-19 22:52] VITALS: BP 124/79
== END 2021-06-19 22:52 | disposition home or self-care (01) ==
LOC: EDUNIT# 21:01 → ER FS 21:03
DX: K52.9 Noninfective gastroenteritis and colitis, unspecified (principal); B34.9 Viral infection, unspecified; Z20.822 Contact with and (suspected) exposure to COVID-19
CPT/HCPCS: 81000; 87636; 87804

== ENCOUNTER 2021-09-29 06:36 | Emergency (ER) | payer MEDICAID ==
[~2021-09-29 06:36] MED LIST changes: +DICY10CA12 PO
--- NOTE | 2021-09-29 06:58 | ED Cough/URI ---
General Chief Complaint: Cough/Cold/Flu Symptoms Stated Complaint: CHEST PAIN Source: patient Exam Limitations: no limitations History of Present Illness Date Seen by Provider: Sep 29, 2021 Time Seen by Provider: 06:45 Initial Comments 35-year-old female with no significant past medical history coming in due to roughly 1 week of intermittent fever, cough, chest congestion, and an episode of vomiting yesterday that was nonbloody nonbilious. She also has had some nonbloody diarrhea. Multiple family members also sick with flulike symptoms. Has been taking ibuprofen as needed. Is otherwise denying any other acute complaints. LMP was within the last month. Allergies and Home Medications Allergies Coded Allergies: aspirin (Unverified Allergy, Mild, 04/27/09) cefaclor (Unverified Allergy, Mild, 04/27/09) Sulfa (Sulfonamide Antibiotics) (Verified Allergy, Unknown, 04/17/21) amoxicillin (Verified Allergy, Unknown, 10/30/09) morphine (Unverified Adverse Reaction, Intermediate, "breathing problems", 05/01/20) Patient Home Medication List Home Medication List Reviewed: Yes Acetaminophen (Tylenol Extra Strength) 500 Mg Tablet, 500 MG PO PRN, (Reported) Entered as Reported by: PATTI CAMPOS on 04/17/21 0111 Dicyclomine HCl (Dicyclomine HCl) 10 Mg Capsule, 10 MG PO Q6H PRN for abdominal pain/cramping Prescribed by: BABS LINDO on 06/19/212239 Famotidine (Pepcid) 20 Mg Tablet, 20 MG PO BID Prescribed by: JORGE IRELAND on 05/06/21 225 Ondansetron (Ondansetron Odt) 4 Mg Tab.rapdis, 4 MG PO Q6H PRN for NAUSEA/VOMITING Prescribed by: BABS LINDO on 06/19/212239 Pcc573/FA/Omega3/Dha/Fish Oil ( Gummies) 1 Each Tab.chew, 1 EACH PO DAILY, (Reported) Entered as Reported by: ZACHEYR BARROS on 05/31/211917 Review of Systems Review of Systems Constitutional: No chills; fever EENTM: No blurred vision Respiratory: cough Cardiovascular: No chest pain Gastrointestinal: no symptoms reported Genitourinary: no symptoms reported Musculoskeletal: no symptoms reported Skin: no symptoms reported Psychiatric/Neurological: No Symptoms Reported Hematologic/Lymphatic: No Symptoms Reported Immunological/Allergic: no symptoms reported All Other Systems Reviewed Negative Unless Noted: Yes Past Adhandm-Xaokht-Ntfouy Hx Patient Social History Tobacco Use?: No Substance use?: No Alcohol Use?: Yes Immunizations Up To Date Tetanus Booster (TDap): Less than 5yrs First/Initial COVID19 Vaccinat: Mar COVID19 Vaccination Henry: April COVID19 Vaccination Date: MAR 24 Seasonal Allergies Seasonal Allergies: No Past Medical History Surgery/Hospitalization HX: 18 days post Surgeries: Yes (BMT , CERCLAGE) Gallbladder Respiratory: No Currently Using CPAP: No Currently Using BIPAP: No Cardiac: No Neurological: No Reproductive Disorders: No Genitourinary: Yes Bladder Infection Gastrointestinal: Yes Gall Bladder Disease, Irritable Bowel Musculoskeletal: No Endocrine: No HEENT: No Cancer: No Psychosocial: No Integumentary: No Blood Disorders: No Physical Exam Capillary Refill : Height: 5'3.00" Weight: 162lbs. oz. 73.173832ti; 28.00 BMI Method:Stated General Appearance: WD/WN, no apparent distress Eyes: Bilateral Eye Normal Inspection HEENT: PERRL/EOMI, normal ENT inspection, pharynx normal Neck: non-tender, full range of motion, supple, normal inspection Respiratory: chest non-tender, lungs clear, normal breath sounds, no respiratory distress, no accessory muscle use Cardiovascular: regular rate, rhythm, no edema, no murmur Gastrointestinal: normal bowel sounds, non tender, soft; No distended, No guarding, No rebound Extremities: normal range of motion, non-tender, normal inspection, no pedal edema, no calf tenderness Neurologic/Psychiatric: no motor/sensory deficits, alert, normal mood/affect Skin: normal color, warm/dry Lymphatic: no adenopathy Progress/Results/Core Measures Suspected Sepsis SIRS Temperature: Pulse: Respiratory Rate: Blood Pressure / Mean: Results/Orders My Orders Orders - KATHERIN CRAIG MD Ekg Tracing (09/29/21 06:50) Influenza A & B Antigens (09/29/21 06:50) Chest 1 View Ap/Pa Only (09/29/21 06:50) Vital Signs/I&O Capillary Refill : Progress Note : Progress Note 35-year-old female with above history coming in due to flulike symptoms. ABCs were intact and vitals were stable on presentation. Physical exam reassuring with no focal abnormalities. Overall she is very well-appearing. We will do a flu test, chest x-ray, EKG. Chest x-ray my interpretation without any signs of pneumonia or acute abnormality. EKG with no signs of acute ischemia. She is having some mild chest discomfort, heart score is 0, and overall low risk for ACS. She is low risk for PE via Corona criteria, and is PERC negative. I believe she is stable for discharge with outpatient follow-up. She was sent home with strict return precautions ECG Initial ECG Impression Date: Sep 29, 2021 Initial ECG Impression Time: 06:51 Initial ECG Rate: 86 Initial ECG Rhythm: Normal Sinus Comment Narrow QRS, normal axis, no significant ST changes or T wave abnormalities, there is baseline wander in the leads making it difficult to interpret Departure Impression Primary Impression: Flu-like symptoms Disposition: 01 HOME, SELF-CARE Condition: Stable Departure-Patient Inst. Decision time for Depature: 07:00 Referrals: WILLIAM LAROSE MD (PCP) Primary Care Physician ATIF ACE APRN (Family) Primary Care Physician Patient Instructions: Viral Syndrome (DC) Add. Discharge Instructions: You do have flulike symptoms. We will call you with your flu test, I suspect it will be negative again. Drink plenty of fluids, take ibuprofen or Tylenol as needed for fever or pain. Follow-up with your regular doctor if you are not feeling better soon. Take your nausea medicine as needed. Your chest x-ray looked clear and you do not have pneumonia. Work/School Note: Work Release Form Date Seen in the Emergency Department: Sep 29, 2021 Return to Work: Sep 30, 2021 Restrictions: Return-No Fever (24hrs) KATHERIN CRAIG MD Sep 29, 2021 06:58
[2021-09-29 07:01] VITALS: BP 132/85
--- NOTE | 2021-09-29 07:03 | Diagnostic Imaging Report ---
INDICATION: Cough, congestion, chest pain. TECHNIQUE: Single view chest 6:51 AM. CORRELATION STUDY: 08/11/2019 FINDINGS: The heart size, mediastinal configuration and pulmonary vascularity are within normal limits. The lungs are clear with no consolidating infiltrate. There is no significant effusion or pneumothorax. IMPRESSION: 1. Negative appearing portable chest. Dictated by: Dictated on workstation # [id number]
== END 2021-09-29 07:16 | disposition home or self-care (01) ==
LOC: EDUNIT# 06:36 → ER FS 06:37
DX: J11.1 Influenza due to unidentified influenza virus with other respiratory manifestations (principal)
CPT/HCPCS: 71045; 87804; 93005

== ENCOUNTER 2022-01-28 21:48 | Emergency (ER) | payer MEDICAID ==
[~2022-01-28] VITALS: Ht 160 cm; Wt 72.5 kg
[~2022-01-28 21:48] MED LIST changes: +OMEP20TA56 PO; -OMEP20TA7 PO
--- NOTE | 2022-01-28 22:19 | ED General ---
General Chief Complaint: COVID19 Suspect/Confirmed Stated Complaint: EXPOSED TO COVID Nursing Triage Note: Patient states that she works in a [employer] and has had several Covid-19 exposures. Patient reports being tested 3 days ago and it was negative. Patient states she would like tested. Patient reports losing her sense of taste and smell yesterday. Patient also reports headache, umbilical pain and multiple random pains. Source of Information: Patient Exam Limitations: No Limitations History of Present Illness Date Seen by Provider: Jan 28, 2022 Time Seen by Provider: 21:58 Initial Comments 36-year-old female patient presented to ER and asking for a COVID test. Patient states she had exposure to several positive COVID coworkers and resident at [employer] and for the last 1 week she has had dry cough, headache, nausea, myalgia, subjective fever. Patient states since yesterday she had 5 episodes of diarrhea. Patient states she had negative COVID test 4 days ago but she believes she has COVID and wants to have a COVID test. Patient denies sick contacts at home, , focal neurodeficit. Allergies and Home Medications Allergies Coded Allergies: aspirin (Unverified Allergy, Mild, 04/27/09) cefaclor (Unverified Allergy, Mild, 04/27/09) Sulfa (Sulfonamide Antibiotics) (Verified Allergy, Unknown, 04/17/21) amoxicillin (Verified Allergy, Unknown, 10/30/09) morphine (Unverified Adverse Reaction, Intermediate, "breathing problems", 05/01/20) Patient Home Medication List Home Medication List Reviewed: Yes Acetaminophen (Tylenol Extra Strength) 500 Mg Tablet, 500 MG PO PRN, (Reported) Entered as Reported by: PATTI CAMPOS on 04/17/21 0111 Dicyclomine HCl (Dicyclomine HCl) 10 Mg Capsule, 10 MG PO Q6H PRN for abdominal pain/cramping Prescribed by: BABS LINDO on 06/19/212239 Famotidine (Pepcid) 20 Mg Tablet, 20 MG PO BID Prescribed by: JORGE IRELAND on 05/06/212256 Ondansetron (Ondansetron Odt) 4 Mg Tab.rapdis, 4 MG PO Q6H PRN for NAUSEA/VOMIT ING Prescribed by: BABS LINDO on 06/19/212239 Fau312/FA/Omega3/Dha/Fish Oil ( Gummies) 1 Each Tab.chew, 1 EACH PO DAILY, (Reported) Entered as Reported by: ZACHERY BARROS on 05/31/211917 Review of Systems Review of Systems Constitutional: see HPI EENTM: see HPI Respiratory: see HPI Cardiovascular: see HPI Gastrointestinal: see HPI Genitourinary: no symptoms reported : No Musculoskeletal: see HPI Skin: no symptoms reported Psychiatric/Neurological: See HPI Hematologic/Lymphatic: No Symptoms Reported Past Cimnzkr-Frdjpu-Dcgfie Hx Patient Social History Tobacco Use?: Yes Tobacco type used: Cigarettes Smoking Status: Current Everyday Smoker Substance use?: No Alcohol Use?: No Pt feels they are or have been: No Immunizations Up To Date Tetanus Booster (TDap): Less than 5yrs First/Initial COVID19 Vaccinat: Mar COVID19 Vaccination Henry: April COVID19 Vaccination Date: MAR 24 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 Allergies Seasonal Allergies: No Past Medical History Surgery/Hospitalization HX: 18 days post Surgeries: Yes (BMT , CERCLAGE) Gallbladder Respiratory: No Currently Using CPAP: No Currently Using BIPAP: No Cardiac: No Neurological: No Reproductive Disorders: No Genitourinary: Yes Bladder Infection Gastrointestinal: Yes Gall Bladder Disease, Irritable Bowel Musculoskeletal: No Endocrine: No HEENT: No Cancer: No Psychosocial: No Integumentary: No Blood Disorders: No Physical Exam Vital Signs Vital Signs - First Documented 01/28/22 21:52 Temp 37.5 Pulse 97 Resp 16 B/P (MAP) 134/73 (93) Pulse Ox 96 O2 Delivery Room Air Capillary Refill : Less Than 3 Seconds Height, Weight, BMI Height: 5'3.00" Weight: 162lbs. oz. 73.587408ec; 28.00 BMI Method:Stated General Appearance: WD/WN Eyes: Bilateral Eye Normal Inspection, Bilateral Eye PERRL, Bilateral Eye EOMI HEENT: PERRL/EOMI, Normal ENT Inspection Neck: Full Range of Motion, Normal Inspection Respiratory: Chest Non Tender, Lungs Clear, Normal Breath Sounds, No Accessory Muscle Use, No Respiratory Distress Cardiovascular: Regular Rate, Rhythm, No Edema, No Gallop, No JVD Gastrointestinal: Normal Bowel Sounds, No Organomegaly, No Pulsatile Mass, Non Tender, Soft Back: Normal Inspection Extremity: Normal Capillary Refill, Normal Inspection Neurologic/Psychiatric: Alert, Oriented x3, No Motor/Sensory Deficits, Other (Anxious) Progress/Results/Core Measures Suspected Sepsis SIRS Temperature: Pulse: 97 Respiratory Rate: 16 Blood Pressure 134 /73 Mean: 93 Results/Orders Lab Results Laboratory Tests Test 01/28/22 21:57 Range/Units SARS-CoV-2 RNA (RT-PCR) Not Detected Not Detecte My Orders Orders - REBEL ZHANG MD Covid 19 Inhouse Test (01/28/22 22:09) Vital Signs/I&O 01/28/22 21:52 Temp 37.5 Pulse 97 Resp 16 B/P (MAP) 134/73 (93) Pulse Ox 96 O2 Delivery Room Air Capillary Refill : Less Than 3 Seconds Blood Pressure Mean: 93 Progress Note : Progress Note Evaluation of patient in ER showed 36-year-old female patient with complaining of cough and congestion and sore throat and loss of taste and appetite and diarrhea and myalgia with requesting for COVID test. Patient had 1 negative COVID test 4 days ago. Patient had unremarkable physical exam. COVID test was negative. Patient follow-up test result. Plan discharge patient home with diagnosis of viral syndrome and instruction to treat symptomatic. Departure Impression Primary Impression: Lab test negative for COVID-19 virus Additional Impression: Viral syndrome Disposition: 01 HOME, SELF-CARE Condition: Stable Departure-Patient Inst. Decision time for Depature: 22:53 Referrals: WILLIAM LAROSE MD (PCP) Primary Care Physician ATIF ACE APRN (Family) Primary Care Physician Patient Instructions: Viral Syndrome (DC), COVID-19 Tests Add. Discharge Instructions: Drink plenty of liquid May take [id number] Tylenol and ibuprofen Follow up with your doctor as needed All discharge instructions reviewed with patient and/or family. Voiced understanding. REBEL ZHANG MD Jan 28, 2022 22:19
[2022-01-28 23:00] VITALS: BP 128/74
== END 2022-01-28 23:01 | disposition home or self-care (01) ==
LOC: EDUNIT# 21:48 → ER FS 21:50
DX: B34.9 Viral infection, unspecified (principal); F17.210 Nicotine dependence, cigarettes, uncomplicated; Z20.822 Contact with and (suspected) exposure to COVID-19
CPT/HCPCS: 87636; 99283

== ENCOUNTER 2022-02-23 18:58 | Emergency (ER) | payer MEDICAID ==
[~2022-02-23] VITALS: Ht 160 cm; Wt 76.1 kg
--- NOTE | 2022-02-23 19:11 | ED Lower Extremity ---
General Chief Complaint: Lower Extremity Stated Complaint: R FOOT PAIN Source: patient History of Present Illness Date Seen by Provider: Feb 23, 2022 Time Seen by Provider: 19:04 Initial Comments 36-year-old female presenting with complaints of dropping a tire panel on her foot around 2 PM. She has had pain ever since. She was concerned about a fracture or problem. She feels like her foot wants to spread out and has trouble trying to push down with her foot. She feels like her swelling to her toes. She has some bruising into the big toenail and is worried she might lose her toenail. She has not taken anything for pain and has been up driving and walking since the accident. Onset: this afternoon Severity: moderate Pain/Injury Location: right foot Method of Injury: direct blow Modifying Factors: Worse With Movement (being up walking and using her foot makes it hurt more) Allergies and Home Medications Allergies Coded Allergies: aspirin (Unverified Allergy, Mild, 04/27/09) cefaclor (Unverified Allergy, Mild, 04/27/09) Sulfa (Sulfonamide Antibiotics) (Verified Allergy, Unknown, 04/17/21) amoxicillin (Verified Allergy, Unknown, 10/30/09) morphine (Unverified Adverse Reaction, Intermediate, "breathing problems", 05/01/20) Patient Home Medication List Home Medication List Reviewed: Yes Acetaminophen (Tylenol Extra Strength) 500 Mg Tablet, 500 MG PO PRN, (Reported) Entered as Reported by: PATTI CAMPOS on 04/17/21 0111 Dicyclomine HCl (Dicyclomine HCl) 10 Mg Capsule, 10 MG PO Q6H PRN for abdominal pain/cramping Prescribed by: BABS LINDO on 06/19/212239 Famotidine (Pepcid) 20 Mg Tablet, 20 MG PO BID Prescribed by: JORGE IRELAND on 05/06/21 225 Ondansetron (Ondansetron Odt) 4 Mg Tab.rapdis, 4 MG PO Q6H PRN for NAUSEA/VOMITING Prescribed by: BASB LINDO on 06/19/212239 Yot492/FA/Omega3/Dha/Fish Oil ( Gummies) 1 Each Tab.chew, 1 EACH PO DAILY, (Reported) Entered as Reported by: ZACHERY BARROS on 05/31/211917 Review of Systems Constitutional: No chills, No fever EENTM: no symptoms reported Respiratory: no symptoms reported Cardiovascular: no symptoms reported Gastrointestinal: no symptoms reported Genitourinary: no symptoms reported Musculoskeletal: see HPI Skin: see HPI Psychiatric/Neurological: Denies Numbness, Denies Paresthesia Past Eyrjbgd-Jwknig-Knevsv Hx Immunizations Up To Date Tetanus Booster (TDap): Less than 5yrs First/Initial COVID19 Vaccinat: Mar COVID19 Vaccination Henry: April COVID19 Vaccination Date: MAR 24 Seasonal Allergies Seasonal Allergies: No Past Medical History Surgery/Hospitalization HX: 18 days post Surgeries: Yes (BMT , CERCLAGE) Gallbladder Respiratory: No Currently Using CPAP: No Currently Using BIPAP: No Cardiac: No Neurological: No Reproductive Disorders: No Genitourinary: Yes Bladder Infection Gastrointestinal: Yes Gall Bladder Disease, Irritable Bowel Musculoskeletal: No Endocrine: No HEENT: No Cancer: No Psychosocial: No Integumentary: No Blood Disorders: No Physical Exam Vital Signs Vital Signs - First Documented 02/23/22 19:00 Temp 36.5 Pulse 105 Resp 20 B/P (MAP) 142/73 (96) Pulse Ox 97 O2 Delivery Room Air Capillary Refill : Height, Weight, BMI Height: 5'3.00" Weight: 162lbs. oz. 73.556082pp; 28.00 BMI Method:Stated General Appearance: WD/WN, no apparent distress Cardiovascular: normal peripheral pulses Feet: right foot pain (pain with touching foot and toes. 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 Ice, elevation and rest. Patient refused anything for pain while waiting on x-rays. She stated that she would take something when she gets home. Progress Note #2: Progress Note No acute findings on xrays. Treat symptomatically for contusion and pain. Diagnostic Imaging Diagonstic Imaging: Xray Plain Films/CT/US/NM/MRI: other (Right foot) Comments NAME: ANDREY SANZ MED REC#: [id number] PT STATUS: REG ER : 1985 PHYSICIAN: BABS LINDO MD ADMIT DATE: 02/23/22/ER FS Draft Date of Exam:02/23/22 FOOT 3 VIEW RIGHT INDICATION: Pain after dropped washer on it around 1400. TECHNIQUE: 3 views of the right foot CORRELATION STUDY: None FINDINGS: The osseous structures of the foot are intact. Joint spaces are maintained. Prominent, 8 mm plantar calcaneal spur. Alignment anatomic. Soft tissues appearing unremarkable. IMPRESSION: 1. Negative for acute findings of the foot. Dictated on workstation # [id number] Dict: 02/23/221927 Trans: 02/23/221928 DO [id number] Interpreted by: ELIAS MIGUEL DO Electronically signed by: Reviewed: Reviewed by Me Departure Impression Primary Impression: Contusion of right foot, initial encounter Additional Impression: Contusion of toe of right foot Qualified Codes: S90.111A - Contusion of right great toe without damage to nail, initial encounter Disposition: HOME, SELF-CARE Condition: Stable Departure-Patient Inst. Decision time for Depature: 19:45 Referrals: WILLIAM LAROSE MD (PCP) Primary Care Physician ATIF ACE APRN (Family) Primary Care Physician Patient Instructions: Foot Sprain ED, Minor Contusion ED, Using Cold for Pain Add. Discharge Instructions: Take Acetaminophen or Ibuprofen to help with pain. Ice pack 20-30 minutes every few hours as needed to help with pain and swelling. Try to elevate your foot when you can to help with pain and swelling. Check back with clinic if not improving over the next 5-10 days. Your xrays do not show any fractures or broken bones in the foot and toes. All discharge instructions reviewed with patient and/or family. Voiced understanding. BABS LINDO MD Feb 23, 2022 19:11
--- NOTE | 2022-02-23 19:30 | Diagnostic Imaging Report ---
INDICATION: Pain after dropped washer on it around 1400. TECHNIQUE: 3 views of the right foot CORRELATION STUDY: None FINDINGS: The osseous structures of the foot are intact. Joint spaces are maintained. Prominent, 8 mm plantar calcaneal spur. Alignment anatomic. Soft tissues appearing unremarkable. IMPRESSION: 1. Negative for acute findings of the foot. Dictated by: Dictated on workstation # [id number]
[2022-02-23 19:52] VITALS: BP 142/73
== END 2022-02-23 19:52 | disposition home or self-care (01) ==
LOC: EDUNIT# 18:58 → ER FS 18:59
DX: S90.31XA Contusion of right foot, initial encounter (principal); S90.111A Contusion of right great toe without damage to nail, initial encounter; Z88.5 Allergy status to narcotic agent; W20.8XXA Other cause of strike by thrown, projected or falling object, initial encounter
CPT/HCPCS: 73630

== ENCOUNTER 2022-03-11 17:14 | Emergency (ER) | payer MEDICAID ==
[~2022-03-11] VITALS: Ht 160 cm; Wt 72.0 kg
--- NOTE | 2022-03-11 18:20 | ED Respiratory ---
General Chief Complaint: COVID19 Suspect/Confirmed Stated Complaint: SORE THROAT Nursing Triage Note: Patient has presented to ER with cc of cough and fatigue for the last 2 weeks. History of Present Illness Date Seen by Provider: Mar 11, 2022 Time Seen by Provider: 15:22 Initial Comments 36-year-old female presents with fatigue for 2 weeks and a cough that Started couple days ago. Patient's has 2 children with similar symptoms. She has no reports of fever. Patient reports that she is got some mild abdominal pain. No nausea or vomiting. No reports of shortness of breath. Allergies and Home Medications Allergies Coded Allergies: aspirin (Unverified Allergy, Mild, 04/27/09) cefaclor (Unverified Allergy, Mild, 04/27/09) Sulfa (Sulfonamide Antibiotics) (Verified Allergy, Unknown, 04/17/21) amoxicillin (Verified Allergy, Unknown, 10/30/09) morphine (Unverified Adverse Reaction, Intermediate, "breathing problems", 05/01/20) Patient Home Medication List Home Medication List Reviewed: Yes Acetaminophen (Tylenol Extra Strength) 500 Mg Tablet, 500 MG PO PRN, (Reported) Entered as Reported by: PTATI CAMPOS on 04/17/21 011 Dicyclomine HCl (Dicyclomine HCl) 10 Mg Capsule, 10 MG PO Q6H PRN for abdominal pain/cramping Prescribed by: BABS LINDO on 06/19/212239 Famotidine (Pepcid) 20 Mg Tablet, 20 MG PO BID Prescribed by: JORGE IRELAND on 05/06/212256 Ondansetron (Ondansetron Odt) 4 Mg Tab.rapdis, 4 MG PO Q6H PRN for NAUSEA/VOMITING Prescribed by: BABS LINDO on 06/19/212239 Abd330/FA/Omega3/Dha/Fish Oil ( Gummies) 1 Each Tab.chew, 1 EACH PO DAILY, (Reported) Entered as Reported by: ZACHERY BARROS on 05/31/211917 Review of Systems Review of Systems Constitutional: No chills, No fever EENTM: no symptoms reported Respiratory: cough; No short of breath Gastrointestinal: see HPI Genitourinary: no symptoms reported Musculoskeletal: no symptoms reported Skin: no symptoms reported Psychiatric/Neurological: No Symptoms Reported Hematologic/Lymphatic: No Symptoms Reported Past Xouazmn-Qgpovg-Auhtxf Hx Patient Social History Tobacco Use?: Yes Smoking Status: Current Everyday Smoker Substance use?: No Alcohol Use?: No Pt feels they are or have been: Unable to obtain Immunizations Up To Date Tetanus Booster (TDap): Less than 5yrs First/Initial COVID19 Vaccinat: [employer] Second COVID19 Vaccination Henry: [employer] Third COVID19 Vaccination Date: [employer] Seasonal Allergies Seasonal Allergies: No Past Medical History Surgery/Hospitalization HX: 18 days post Surgeries: Yes (BMT , CERCLAGE) Gallbladder Respiratory: No Currently Using CPAP: No Currently Using BIPAP: No Cardiac: No Neurological: No Reproductive Disorders: No Genitourinary: Yes Bladder Infection Gastrointestinal: Yes Gall Bladder Disease, Irritable Bowel Musculoskeletal: No Endocrine: No HEENT: No Cancer: No Psychosocial: No Integumentary: No Blood Disorders: No Physical Exam Vital Signs - First Documented 03/11/22 17:40 Temp 36.3 Pulse 97 Resp 16 B/P (MAP) 131/77 (95) Pulse Ox 97 O2 Delivery Room Air Capillary Refill : Height: 5'3.00" Weight: 162lbs. oz. 73.511904mh; 28.00 BMI Method:Stated General Appearance: WD/WN, no apparent distress HEENT: PERRL/EOMI, pharynx normal Neck: full range of motion Respiratory: lungs clear, normal breath sounds Cardiovascular: normal peripheral pulses, regular rate, rhythm Gastrointestinal: soft; No distended; tenderness (Mild left upper quadrant tender) Neurologic/Psychiatric: alert, normal mood/affect, oriented x 3 Skin: normal color, warm/dry Progress/Results/Core Measures Suspected Sepsis SIRS Temperature: Pulse: 97 Respiratory Rate: 16 Blood Pressure 131 /77 Mean: 95 Results/Orders Lab Results Laboratory Tests Test 03/11/22 17:25 Range/Units SARS-CoV-2 RNA (RT-PCR) Not Detected Not Detecte Group A Streptococcus Screen NEGATIVE NEGATIVE My Orders Orders - ARTEMIO MEYER DO Rapid Strep A Screen (03/11/22 17:34) Covid 19 Inhouse Test (03/11/22 17:34) Vital Signs/I&O 03/11/22 03/11/22 17:40 19:20 Temp 36.3 36.3 Pulse 97 97 Resp 16 16 B/P (MAP) 131/77 (95) 131/77 Pulse Ox 97 97 O2 Delivery Room Air Room Air Capillary Refill : Blood Pressure Mean: 95 Progress Note : Progress Note Patient with a viral syndrome. Patient has 2 family members with similar symptoms. Patient stable with no acute findings on physical exam, negative for strep and COVID. Discussed supportive care. Patient stable and discharged Departure Impression Primary Impression: Viral syndrome Disposition: HOME, SELF-CARE Condition: Stable Departure-Patient Inst. Referrals: WILLIAM LAROSE MD (PCP) Primary Care Physician ATIF ACE APRN (Family) Primary Care Physician Patient Instructions: VIRAL RESP ILLNESS-ADULT, VIRAL SYNDROME Add. Discharge Instructions: Follow-up with your primary care provider next week for further evaluation of your fatigue All discharge instructions reviewed with patient and/or family. Voiced understanding. ARTEMIO MEYER DO Mar 11, 2022 18:20
[2022-03-11 19:20] VITALS: BP 131/77
== END 2022-03-11 19:20 | disposition home or self-care (01) ==
LOC: EDUNIT# 17:14 → ER FS 17:16
DX: B34.9 Viral infection, unspecified (principal); F17.200 Nicotine dependence, unspecified, uncomplicated; Z20.822 Contact with and (suspected) exposure to COVID-19
CPT/HCPCS: 87430; 87636; 99283

== ENCOUNTER 2022-03-24 19:22 | Emergency (ER) | payer MEDICAID ==
[~2022-03-24] VITALS: Ht 160 cm; Wt 70.0 kg
--- NOTE | 2022-03-24 19:34 | ED EENT ---
History of Present Illness General Chief Complaint: Oral/Throat Problems Stated Complaint: BURNING IN THROAT Source: patient History of Present Illness Date Seen by Provider: Mar 24, 2022 Time Seen by Provider: 19:34 Initial Comments 36-year-old female presenting with sensation of swelling in her throat. She had taken a drink at home and thought she may have swallowed a spider or be either stung or bit her in her throat. She immediately felt like there is a stinging p ain and swelling sensation. She has continued to be able to swallow without choking or vomiting. She has not tried to eat anything since this happened. She has not taken any medication for it. She feels like a bug or what ever is still stuck in her throat but is breathing and speaking fine as well as again handling all of her own saliva. Timing/Duration: abrupt Severity: moderate Location: throat Prearrival Treatment: no prearrival treatment Modifying Factors: Worse With Other (Swallowing makes it feel like there is something stuck in her throat) Associated Symptoms: No change in hearing, No cough, No drooling, No ear draina ge, No facial pain/swelling, No fever, No malaise, No nasal congestion/drainage, No poor fluid intake, No poor solids intake, No sinus infection; sore throat; No tooth pain, No voice change Allergies and Home Medications Allergies Coded Allergies: aspirin (Unverified Allergy, Mild, 04/27/09) cefaclor (Unverified Allergy, Mild, 04/27/09) Sulfa (Sulfonamide Antibiotics) (Verified Allergy, Unknown, 04/17/21) amoxicillin (Verified Allergy, Unknown, 10/30/09) morphine (Unverified Adverse Reaction, Intermediate, "breathing problems", 05/01/20) Patient Home Medication List Home Medication List Reviewed: Yes Acetaminophen (Tylenol Extra Strength) 500 Mg Tablet, 500 MG PO PRN, (Reported) Entered as Reported by: PATTI CAMPOS on 04/17/21 0111 Dicyclomine HCl (Dicyclomine HCl) 10 Mg Capsule, 10 MG PO Q6H PRN for abdominal pain/cramping Prescribed by: BABS LINDO on 06/19/21 2240 Famotidine (Pepcid) 20 Mg Tablet, 20 MG PO BID Prescribed by: JORGE IRELAND on 11/3/21 2257 Ondansetron (Ondansetron Odt) 4 Mg Tab.rapdis, 4 MG PO Q6H PRN for NAUSEA/VOMITING Prescribed by: BABS LINDO on 06/19/212239 Uab909/FA/Omega3/Dha/Fish Oil ( Gummies) 1 Each Tab.chew, 1 EACH PO DAILY, (Reported) Entered as Reported by: ZACHERY BARROS on 05/31/211917 Review of Systems Review of Systems Constitutional: No chills, No fever Eyes: No Symptoms Reported Ears: No Symptoms Reported Nose: no symptoms reported Mouth: no symptoms reported Throat: see HPI Respiratory: no symptoms reported Cardiovascular: no symptoms reported Gastrointestinal: no symptoms reported Musculoskeletal: no symptoms reported Skin: no symptoms reported Neurological: Anxiety Past Tbtqazj-Blfqtj-Rycuov Hx Immunizations Up To Date Tetanus Booster (TDap): Less than 5yrs First/Initial COVID19 Vaccinat: [employer] Second COVID19 Vaccination Henry: [employer] Third COVID19 Vaccination Date: [employer] Seasonal Allergies Seasonal Allergies: No Past Medical History Surgery/Hospitalization HX: 18 days post Surgeries: Yes (BMT , CERCLAGE) Gallbladder Respiratory: No Currently Using CPAP: No Currently Using BIPAP: No Cardiac: No Neurological: No Reproductive Disorders: No Genitourinary: Yes Bladder Infection Gastrointestinal: Yes Gall Bladder Disease, Irritable Bowel Musculoskeletal: No Endocrine: No HEENT: No Cancer: No Psychosocial: No Integumentary: No Blood Disorders: No Physical Exam Vital Signs Vital Signs - First Documented 03/24/22 19:29 Temp 36.7 Pulse 95 Resp 16 B/P (MAP) 137/87 (104) Pulse Ox 99 O2 Delivery Room Air Height, Weight, BMI Height: 5'3.00" Weight: 162lbs. oz. 73.209709ru; 28.00 BMI Method:Stated General Appearance: WD/WN, no apparent distress Eyes: bilateral eye PERRL, bilateral eye EOMI Mouth/Throat: pharynx normal; No excessive drooling, No pharynx swelling, No tongue swollen, No tonsillar swelling, No trismus, No uvula swelling, No voice changes Neck: No non-tender (Complains of tenderness with palpation of the upper neck in the submandibular area); full range of motion, supple Cardiovascular: normal peripheral pulses, regular rate, rhythm Respiratory: chest non-tender, lungs clear, normal breath sounds, no respirator y distress, no accessory muscle use Gastrointestinal: normal bowel sounds, soft, no pulsatile mass Neurologic/Psychiatric: alert, oriented x 3 Skin: normal color, warm/dry Progress/Results/Core Measures Results/Orders My Orders Orders - BABS LINDO MD Dexamethasone Injection (Decadron Inje (03/24/22 19:50) Methylprednisolone Acetate Inj (Depo-Med (03/24/22 19:50) Vital Signs/I&O 03/24/22 19:29 Temp 36.7 Pulse 95 Resp 16 B/P (MAP) 137/87 (104) Pulse Ox 99 O2 Delivery Room Air Progress Progress Note #1: Progress Note Reassured patient that I did not hear any stridor or see any evidence of throat obstruction. That can still feel like there is something stuck in your throat from a scratch or if there is swelling from a bite or sting. Will administer a dose of steroids to try and help with the swelling sensation and have her try drinking some fluids and maybe trying some crackers to see if that helps. Progress Note #2: Progress Note Patient reports minimal improvement in her symptoms but she is continuing to swallow her own saliva without difficulty. She states that she has to leave as her son needs to be picked up. He was with a lady from [employer] and she needs to go pick him up. Counseled patient on follow-up and return precautions. Advised to follow soft bland diet. Departure Impression Primary Impression: Sensation of swollen throat Additional Impressions: Foreign body ingestion Qualified Codes: T18.9XXA - Foreign body of alimentary tract, part unspecified, initial encounter Observation following foreign body ingestion Disposition: 01 HOME, SELF-CARE Condition: Stable Departure-Patient Inst. Decision time for Depature: 20:37 Referrals: WILLIAM LAROSE MD (PCP) Primary Care Physician ATIF ACE APRN (Family) Primary Care Physician Patient Instructions: Swallowed Objects, Adult ED Add. Discharge Instructions: Follow a liquid or soft and bland diet for next 2-3 days May take Benadryl 25 mg every 4 hours if needed for sensation of swelling and difficulty swallowing. All discharge instructions reviewed with patient and/or family. Voiced understanding. BABS LINDO MD Mar 24, 2022 19:34
[2022-03-24] MEDS ORDERED: methylPREDNISolone 40 MG/ML (DEPO MEDROL) VIAL IM STA (19:50)
[2022-03-24 20:40] VITALS: BP 137/87
== END 2022-03-24 20:40 | disposition home or self-care (01) ==
LOC: EDUNIT# 19:22 → ER FS 19:23
DX: T18.9XXA Foreign body of alimentary tract, part unspecified, initial encounter (principal); W45.8XXA Other foreign body or object entering through skin, initial encounter
CPT/HCPCS: 99284

== ENCOUNTER 2022-04-05 13:45 | Emergency (ER) | payer MEDICAID ==
[~2022-04-05] VITALS: Ht 161 cm; Wt 76.0 kg
[2022-04-05] MEDS ORDERED: KETOROLAC 60 MG/2 ML VIAL IM STA (14:14)
--- NOTE | 2022-04-05 14:25 | ED General ---
General Chief Complaint: Back Problems Stated Complaint: BACK PAIN Nursing Triage Note: c/o back pain that started last night, states she took tylenol last night but nothing today for pain. states she has a hx of degeneritive disc disease. denies injury Source of Information: Patient History of Present Illness Date Seen by Provider: Apr 05, 2022 Time Seen by Provider: 13:49 Initial Comments 36-year-old female presenting with complaints of not feeling well for the last 2 or 3 days. She has had some diarrhea stools. She feels like she is not able to empty her bladder completely. She started having pain in her back overnight. She was concerned about possible UTI or bladder infection. She also has history of chronic degenerative disc disease but denies any acute injury. She states that overall she just does not feel well and actually called into work because she felt so bad. She did take some Tylenol overnight which did not improve her pain. Timing/Duration: 2-3 Days Severity: Severe Modifying Factors: worse with Movement Associated Systoms: No Chest Pain, No Cough, No Diaphoresis, No Fever/Chills, No Headaches, No Loss of Appetite; Malaise, Nausea/Vomiting (Nausea but no vomiting); No Seizure, No Shortness of Air, No Syncope, No Weakness Allergies and Home Medications Allergies Coded Allergies: aspirin (Unverified Allergy, Mild, 04/27/09) cefaclor (Unverified Allergy, Mild, 04/27/09) Sulfa (Sulfonamide Antibiotics) (Verified Allergy, Unknown, 04/17/21) amoxicillin (Verified Allergy, Unknown, 10/30/09) morphine (Unverified Adverse Reaction, Intermediate, "breathing problems", 05/01/20) Patient Home Medication List Home Medication List Reviewed: Yes Acetaminophen (Tylenol Extra Strength) 500 Mg Tablet, 500 MG PO PRN, (Reported) Entered as Reported by: PATTI CAMPOS on 04/17/21 0111 Dicyclomine HCl (Dicyclomine HCl) 10 Mg Capsule, 10 MG PO Q6H PRN for abdominal pain/cramping Prescribed by: BABS LINDO on 06/19/21 2240 Famotidine (Pepcid) 20 Mg Tablet, 20 MG PO BID Prescribed by: JORGE IRELAND on 05/06/21 2257 Levofloxacin (Levofloxacin) 500 Mg Tablet, 500 MG PO DAILY Prescribed by: BABS LINDO on 04/05/22 1518 Ondansetron (Ondansetron Odt) 4 Mg Tab.rapdis, 4 MG PO Q6H PRN for NAUSEA/VOMITING Prescribed by: BABS LINDO on 06/19/21 2240 Phenazopyridine HCl (Phenazopyridine HCl) 200 Mg Tablet, 200 MG PO TID Prescribed by: BABS LINDO on 04/05/22 151 [id number]/FA/Omega3/Dha/Fish Oil ( Gummies) 1 Each Tab.chew, 1 EACH PO DAILY, (Reported) Entered as Reported by: ZACHERY BARROS on 05/31/211917 Review of Systems Review of Systems Constitutional: No chills, No fever EENTM: no symptoms reported Respiratory: no symptoms reported Cardiovascular: no symptoms reported Gastrointestinal: see HPI Genitourinary: see HPI Musculoskeletal: back pain Skin: No rash Psychiatric/Neurological: Denies Headache, Denies Numbness, Denies Paresthesia Hematologic/Lymphatic: No Symptoms Reported Past Hjgzarb-Txovco-Ysistq Hx Patient Social History Tobacco Use?: Yes Tobacco type used: Cigarettes Smoking Status: Current Everyday Smoker Use of E-Cig and/or Vaping dev: No Substance use?: No Alcohol Use?: No Pt feels they are or have been: No Immunizations Up To Date Tetanus Booster (TDap): Less than 5yrs Influenza Vaccine Up-to-Date: Yes; Up-to-Date First/Initial COVID19 Vaccinat: [employer] Second COVID19 Vaccination Henry: GPMESS Third COVID19 Vaccination Date: [employer] Seasonal Allergies Seasonal Allergies: No Past Medical History Surgery/Hospitalization HX: degenerative disc disease per patient. Surgeries: Yes (BMT , CERCLAGE) Gallbladder Respiratory: No Currently Using CPAP: No Currently Using BIPAP: No Cardiac: No Neurological: No Last Menstrual Period: Mar 22, 2022 Reproductive Disorders: No Genitourinary: Yes Bladder Infection Gastrointestinal: Yes Gall Bladder Disease, Irritable Bowel Musculoskeletal: No Endocrine: No HEENT: No Cancer: No Psychosocial: No Integumentary: No Blood Disorders: No Physical Exam Vital Signs Vital Signs - First Documented 04/05/22 13:50 Temp 36.2 Pulse 96 Resp 16 B/P (MAP) 114/72 (86) Pulse Ox 98 O2 Delivery Room Air Capillary Refill : Less Than 3 Seconds Height, Weight, BMI Height: 5'3.00" Weight: 162lbs. oz. [id number]; 29.00 BMI Method:Stated General Appearance: No Apparent Distress HEENT: PERRL/EOMI, Pharynx Normal Neck: Full Range of Motion, Normal Inspection, Non Tender, Supple Respiratory: Chest Non Tender, Lungs Clear, Normal Breath Sounds, No Accessory Muscle Use, No Respiratory Distress Cardiovascular: Regular Rate, Rhythm, Normal Peripheral Pulses Gastrointestinal: Normal Bowel Sounds, No Pulsatile Mass, Soft; No Distended, No Guarding, No Rebound; Tenderness (Right upper quadrant) Rectal: Deferred Back: CVA Tenderness (L), CVA Tenderness (R) Extremity: Normal Capillary Refill, Normal Inspection, No Pedal Edema Neurologic/Psychiatric: Alert, Oriented x3, art psychotherapist II-XII Norm as Tested Skin: Normal Color, Warm/Dry Progress/Results/Core Measures Suspected Sepsis SIRS Temperature: Pulse: 96 Respiratory Rate: 16 Blood Pressure 114 /72 Mean: 86 Results/Orders Lab Results Laboratory Tests Test 04/05/22 13:55 Range/Units Urine Color YELLOW Urine Clarity CLOUDY Urine pH 6.0 5-9 Urine Specific [place] 1.025 H 1.016-1.022 Urine Protein 1+ H NEGATIVE Urine Glucose (UA) NEGATIVE NEGATIVE Urine Ketones NEGATIVE NEGATIVE Urine Nitrite POSITIVE H NEGATIVE Urine Bilirubin 1+ H NEGATIVE Urine Urobilinogen 0.2 < = 1.0 MG/DL Urine Leukocyte Esterase 3+ H NEGATIVE Urine RBC (Auto) TRACE-I H NEGATIVE Urine RBC 2-5 H /HPF Urine WBC >100 H /HPF Urine Squamous Epithelial Cells 5-10 /HPF Urine Crystals NONE /LPF Urine Bacteria LARGE H /HPF Urine Casts NONE /LPF Urine Mucus MODERATE H /LPF Urine Culture Indicated YES My Orders Orders - BABS LINDO MD Ua Culture If Indicated (04/05/22 13:49) Urine Bedside (04/05/22 13:49) Ketorolac Injection (Toradol Injection) (04/05/22 14:14) Urine Culture (04/05/22 13:55) Levofloxacin Tablet (Levaquin Tablet) (04/05/22 15:11) Phenazopyridine Tablet (Pyridium Tablet) (04/05/22 15:11) Vital Signs/I&O 04/05/22 04/05/22 13:50 15:25 Temp 36.2 Pulse 96 89 Resp 16 16 B/P (MAP) 114/72 (86) 123/97 Pulse Ox 98 97 O2 Delivery Room Air Room Air Capillary Refill : Less Than 3 Seconds Blood Pressure Mean: 86 Progress Note #1: Progress Note Since she was concerned about a possible urinary tract infection will start with urinalysis and test. Order Toradol to try and help with pain. If urine is clear then will look at additional testing. Progress Note #2: Time: 15:01 Progress Note UA does show infection with nitrites, LE, WBC and Bacteria. Will treat with levaquin and pyridium since she is allergic to Sulfa, Pcn, Cephalosporins. Encourage hydration and recommended cranberry pills or cranberry juice to help flush out her urine as well. Check back with clinic if not improving. Departure Impression Primary Impression: Acute cystitis without hematuria Additional Impressions: Acute right flank pain Low back pain Qualified Codes: M54.50 - Low back pain, unspecified; G89.29 - Other chronic pain Diarrhea Qualified Codes: R19.7 - Diarrhea, unspecified Disposition: 01 HOME, SELF-CARE Condition: Stable Departure-Patient Inst. Decision time for Depature: 15:14 Referrals: ATIF ACE APRN (PCP) Primary Care Physician [facility] (Family) Primary Care Physician Patient Instructions: Flank Pain ED, Diarrhea, Adult ED, Urinary Tract Infection, Adult ED Add. Discharge Instructions: Stay well-hydrated and drink plenty of fluids. Take the full course of antibiotics to treat for urine infection. The Pyridium will make your urine an orangeish/red color for the next 2 days while you take the medicine. This does not treat the infection, but helps with sensation of having to urinate every few minutes and your flank pain. Check back with clinic if not improving on the antibiotic after 2-3 days All discharge instructions reviewed with patient and/or family. Voiced understanding. Scripts Phenazopyridine HCl (Phenazopyridine HCl) 200 Mg Tablet 200 MG PO TID for UTI pain for 2 Days, #6 TAB 0 Refills Prov: BABS LINDO MD 04/05/22 Levofloxacin (Levofloxacin) 500 Mg Tablet 500 MG PO DAILY for UTI for 7 Days, #6 TAB 0 Refills Prov: ENYART,BABS E MD 04/05/22 Work/School Note: Work Release Form Date Seen in the Emergency Department: Apr 05, 2022 Return to Work: Apr 07, 2022 Restrictions: No Restrictions BABS LINDO MD Apr 05, 2022 14:25
[2022-04-05 14:31] LABS: CLARITY,URINE CLOUDY; COLOR,URINE YELLOW; GLUCOSE, URINE (UA) NEGATIVE (NEGATIVE); KETONES,URINE NEGATIVE (NEGATIVE); LEUKOCYTE ESTERASE ,URINE 3+ (NEGATIVE); NITRITE,URINE POSITIVE (NEGATIVE); PROTEIN,URINE 1+ (NEGATIVE)
[2022-04-05 14:47] LABS: BILIRUBIN,URINE 1+ (NEGATIVE)
[2022-04-05 14:48] LABS: BACTERIA,URINE LARGE /HPF; WBC,URINE >100 /HPF
[2022-04-05] MEDS ORDERED: PHENAZOPYRIDINE 100 MG (PYRIDIUM) TABLET PO STA (15:11)
[2022-04-05] MEDS ORDERED: PHEN-827 PO (15:18)
[2022-04-05] MEDS ORDERED: LEVO-55 PO (15:18)
[2022-04-05 15:25] VITALS: BP 123/97
== END 2022-04-05 15:25 | disposition home or self-care (01) ==
LOC: EDUNIT# 13:45 → ER FS 13:47
DX: N30.00 Acute cystitis without hematuria (principal); R19.7 Diarrhea, unspecified; F17.210 Nicotine dependence, cigarettes, uncomplicated; Z90.49 Acquired absence of other specified parts of digestive tract; Z87.39 Personal history of other diseases of the musculoskeletal system and connective tissue
CPT/HCPCS: 81000; 84703; 87077; 87088; 87186; 96372

== ENCOUNTER → 2022-08-27 | Outpatient (CLI) | payer MEDICAID ==
[~2022-08-27] MED LIST changes: +LEVO-55 PO; +PHEN-827 PO
--- NOTE | 2022-08-27 17:47 | Diagnostic Imaging Report ---
EXAMINATION: Abdomen 1 view HISTORY: EPIGASTRIC PAIN COMPARISON: None available. FINDINGS: There are surgical clips in the right upper quadrant. No dilated bowel or free air. An intrauterine device is seen. IMPRESSION: 1. Normal bowel gas pattern. Dictated by: Dictated on workstation # [id number]
== END ==
LOC: RAD FS 16:54
PROVIDERS: ATTEND Nurse Practitioner Family
DX: R10.13 Epigastric pain (principal)
CPT/HCPCS: 74018